=== PATIENT | female | born 1945 | race Caucasian/White ===

== ENCOUNTER → 2016-09-07 | Outpatient (CLI) | payer BC, MEDICARE ==
--- NOTE | 2016-09-08 08:07 | CONS ---
DATE OF CONSULT: 09/07/2016 HISTORY OF PRESENT ILLNESS/SLEEP WAKE EVALUATION: 70 year old lady has [facility] for possible obstructive sleep apnea/hypopnea syndrome. SLEEP SCHEDULE: The patient's usual sleep schedule from around 1 a.m. until 10 a.m. FALLING ASLEEP: She does have problems with falling asleep. Has t.v. set in bedroom. She snores and has episodes of stopped breathing during the sleep documented in the hospital while she was there for surgery. DURING SLEEP: She wakes up with sleep from nocturia. In the morning, she wakes up tired, feels sleepiness during the day. [place] sleep scale is 6. She takes naps one or two times a day after noon. DURING THE DAY/WAKE STATE: No history of sleep paralysis, hypnogogical hallucinations or cataplexy. Medications: 1. Metformin. 2. Metoprolol. 3. ( ). 4. Hydrochlorothiazide. 5. Oxybutynin. 6. Atorvastatin. 7. Aspirin. PAST MEDICAL HISTORY: hypertension, diabetes mellitus, urinary incontinence, hyperlipidemia. PAST SURGICAL HISTORY: Partial hysterectomy, left knee replacement. Surgery for a broken left arm. FAMILY HISTORY: Hypertension, hyperlipidemia, snoring, diabetes. SOCIAL HISTORY: Positive for smoking for 30 years up to 1 1/2 pack a day, quit about 6 years ago. Alcohol consumption rarely. REVIEW OF SYSTEMS: No fevers. No double vision. No recent chest pain. No shortness of breath. No abdominal pain. No bleeding episodes. No blood in urine. No seizure episodes. PHYSICAL EXAM: GENERAL: A pleasant lady patient without any distress. VITAL SIGNS: BP 120/63, HR 60, RR 16, Height 5 feet 4 and a half inches, weight 180.2, body mass index 30.4. Temperature 97.9. Oxygen saturation on room air 95%. HEENT: PERRLA, EOMI. Evaluation of oropharynx shows extremely low position of soft palate. Mallampati 4. Tongue protrudes midline. NECK: Supple. No JVD. Thyroid is not palpable. LUNGS: Clear to auscultation and percussion. Good air exchange. No wheezing or rhonchi. HEART: S1, S2 regular. No murmurs, gallops or rubs. ABDOMEN: Obese. Soft, nontender. Bowel sounds are preset. No organomegaly appreciated. EXTREMITIES: No clubbing or cyanosis. TOWER SUPERVISOR: Awake, alert and oriented times three. Cranial nerves 2 to 7 intact. There is no fasciculation or atrophy noted. No focal deficits observed. IMPRESSION: 1. Snoring. Witnessed episodes of stopped breathing during the sleep, extremely low position of soft palate, obstructive sleep apnea/hypopnea syndrome. 2. Mild obesity. 3. Hypertension. 4. Hyperlipidemia. 5. history of urinary incontinence. 6. Status post partial hysterectomy. 7. Status post left knee replacement. 8. Status post treatment of fracture of left arm in the past. 9. Status post about 45 pack year of smoking. PLAN: 1. Polysomnography for evaluation of patients breathing during sleep. 2. CPAP/BIPAP titration if sleep study confirms obstructive sleep apnea/ hypopnea syndrome. 3. Preferable position during sleep in the side. 4. No driving if patient feels any sleepiness. Patient is aware of civil and criminal liability for unsafe driving. 5. I will see the patient for follow-up visit to explain the results of the testing and following plan. Thank you for referring this patient for consultation. Sincerely, Siva Carrizales MD, PhD, FAASM Diplomat of [place] [employer]. Sleep Medicine Board by [place] [employer] [place] [employer] [facility] [place] [facility]
== END ==
LOC: SLEEP 15:24
PROVIDERS: ATTEND Internal Medicine
DX: R06.83 Snoring (principal); E66.9 Obesity, unspecified; I10 Essential (primary) hypertension; E78.5 Hyperlipidemia, unspecified; Z90.710 Acquired absence of both cervix and uterus; Z96.652 Presence of left artificial knee joint; Z87.891 Personal history of nicotine dependence; Z79.899 Other long term (current) drug therapy; Z79.82 Long term (current) use of aspirin
CPT/HCPCS: 99211

== ENCOUNTER → 2019-02-06 | Day surgery (SDC) | payer BC, MEDICARE ==
[2019-02-04 15:26] VITALS: BMI 31.4
[~2019-02-06] MED LIST: LACTATED RINGERS 1,000 ML IV SCH; LIDOCAINE 1% 20 ML VIAL (10MG/ML) FOR IV START INTRADERMA PRN; PROPOFOL 10 MG/ML 20 ML VIAL IV ONE
[2019-02-06 12:51] VITALS: RESP 16; TEMP 97.7
[2019-02-06 12:59] LABS: Glucose,Whole Blood 130 mg/dL (75-99)
--- NOTE | 2019-02-06 13:38 | P.OP ---
Date of Procedure: 02/06/19 Preoperative Diagnosis: iron deficiency anemia Postoperative Diagnosis: gastritis Duodenitis Cecal polyp Descending colon polyp Diverticulosis Procedure(s) Performed: EGD with biopsy Colonoscopy with polypectomy Surgeon: Micah Rodríguez Pathology: other (biopsies of duodenum, antrum, esophagus, cecal polyp, descending colon polyp) Condition: stable Disposition: same day Indications for Procedure: 73-year-old female with history of iron deficiency anemia. She presents today for upper and lower endoscopy for further workup. She was explained the risks, benefits and alternatives to the procedure and did provide consent prior to attending the endoscopy suite. Operative Findings: gastritis Duodenitis Cecal polyp Descending colon polyp Diverticulosis of sigmoid colon Description of Procedure: the patient was brought into the endoscopy suite. She was then placed in left lateral decubitus position and adequate sedation was achieved using conscious sedation. A bite block was placed in an endoscope was placed in the oropharynx and advanced under endoscopic visualization. The endoscope was advanced through the esophagus into the stomach, through the gastric antrum and into the pylorus. The third portion of the duodenum was visualized. The endoscope was then sl owly withdrawn. The first portion of the duodenum was noted to have inflammatory changes. Biopsies were taken. The antrum was noted to have informed her changes. Biopsies were taken. The gastric body distended normally and the gastric folds appeared normal and flattened with insufflation. A retroflexed view of the fundus and GE junction revealed no significant hiatal hernia. The esophagus appeared endoscopically normal. Excess air was removed and the scope was withdrawn. Digital rectal exam was performed and mild internal hemorrhoids were palpated. An endoscope was then placed in the rectum and advanced to the cecum as identified by landmarks including the appendiceal orifice and the ileocecal valve. The prep was fair. The colonoscope was then slowly withdrawn, examining for any mucosal abnormalities. There was still some solid stool throughout the colon, however the mucosal layer of the entire colon was appropriately visualized. The cecum, ascending, transverse, descending and sigmoid colon were visualized adequately. There were a few polyps noted throughout the colon. A flat sessile-looking polyp was noted in the cecum. Polypectomy was performed with forcep polypectomy. An additional polyp was noted in the descending colon. This was also removed with forcep polypectomy. Hemostasis was noted to be maintained. There were small scattered diverticulosis throughout the sigmoid colon. Retroflexion was performed in the rectum and mild internal hemorrhoids were visible. Excess air was removed, the colonoscope withdrawn and procedure terminated. The patient was then transferred to the recovery unit in stable condition. Repeat colonoscopy should be performed in 3 years.
[2019-02-06 14:06] VITALS: BP 155/70; PULSE 70
== END | disposition home or self-care (01) ==
LOC: ORWHC2ENDO 12:25
PROVIDERS: ATTEND Surgery
DX: D12.0 Benign neoplasm of cecum (principal); D12.4 Benign neoplasm of descending colon; K57.30 Diverticulosis of large intestine without perforation or abscess without bleeding; K29.80 Duodenitis without bleeding; D50.9 Iron deficiency anemia, unspecified; K29.50 Unspecified chronic gastritis without bleeding; B96.81 Helicobacter pylori [H. pylori] as the cause of diseases classified elsewhere; K64.8 Other hemorrhoids; Z90.710 Acquired absence of both cervix and uterus; E78.5 Hyperlipidemia, unspecified; K21.9 Gastro-esophageal reflux disease without esophagitis; M19.90 Unspecified osteoarthritis, unspecified site; I25.10 Atherosclerotic heart disease of native coronary artery without angina pectoris; G25.0 Essential tremor; Z97.2 Presence of dental prosthetic device (complete) (partial); I10 Essential (primary) hypertension; E11.9 Type 2 diabetes mellitus without complications; F32.9 Major depressive disorder, single episode, unspecified; E78.00 Pure hypercholesterolemia, unspecified; G47.33 Obstructive sleep apnea (adult) (pediatric); Z99.89 Dependence on other enabling machines and devices; Z95.5 Presence of coronary angioplasty implant and graft; Z82.49 Family history of ischemic heart disease and other diseases of the circulatory system; Z79.84 Long term (current) use of oral hypoglycemic drugs; Z79.82 Long term (current) use of aspirin; Z79.899 Other long term (current) drug therapy
CPT/HCPCS: 88305; 88342; 45380; 43239; J2704

== ENCOUNTER → 2022-05-16 | Outpatient (CLI) | payer MEDICARE | END | disposition home or self-care (01) | LOC: LABWHC1 13:53 | PROVIDERS: ATTEND Internal Medicine Cardiovascular Disease | DX: R60.0 Localized edema (principal) ==

== ENCOUNTER → 2022-05-18 | Outpatient (CLI) | payer MEDICARE | END | disposition home or self-care (01) | LOC: LABWHC1 11:43 | PROVIDERS: ATTEND Internal Medicine Cardiovascular Disease | DX: R60.0 Localized edema (principal) | CPT/HCPCS: 36415; 83880 ==

== ENCOUNTER → 2022-06-01 | Outpatient (CLI) | payer MEDICARE ==
--- NOTE | 2022-06-02 09:30 | NM ---
EXAMINATION TYPE: NM DatScan Brain SPECT DATE OF EXAM: 06/01/2022 COMPARISON: NONE HISTORY: Tremors TECHNIQUE: 10 drops of Lugol's solution was administered 1 hour prior to injection as a thyroid bloc megan agent. After the administration of 4.48 mCi I-123 Ioflupane DaTscan. Images obtained 3 hours p ost injection. SPECT images of the brain were acquired with axial and coronal reconstructions. FINDINGS: The axial SPECT images demonstrate increased background activity and normal activity within the bilateral striata. The Z scores range from +0.88 to +2.25 IMPRESSION: 1. Normal exam..
== END | disposition home or self-care (01) ==
LOC: RADNMMAIN 11:00
PROVIDERS: ATTEND Psychiatry & Neurology Neurology
DX: G20 Parkinson's disease (principal); G25.0 Essential tremor
CPT/HCPCS: 78803; A9584

== ENCOUNTER → 2022-12-07 | Outpatient (CLI) | payer MEDICARE ==
[2022-12-07 16:44] LABS: HCT 42.8 % (37.2-46.3); HGB 12.9 d/dL (12.0-15.0); MCH 27.7 pg (27.0-32.0); MCHC 30.1 d/dL (32.0-37.0); Mean Platelet Volume 11.3 FL (9.5-12.2); NRBC Per 100 WBC 0 X 10*3/uL (0.00-0.01); Platelet Count 321 X 10*3/uL (140-440); RBC 4.65 X 10*6/uL (4.10-5.20); WBC 12.12 X 10*3/uL (4.50-10.00)
[2022-12-07 20:15] LABS: Blood Urea Nitrogen 16.6 mg/dL (9.0-27.0); Carbon Dioxide 26.4 mmol/L (21.6-31.8); Chloride 98 mmol/L (96-109); Potassium 4.7 mmol/L (3.5-5.5); Sodium 138 mmol/L (135-145)
== END | disposition home or self-care (01) ==
LOC: LABPAT 11:13
PROVIDERS: ATTEND Internal Medicine Interventional Cardiology
DX: Z01.812 Encounter for preprocedural laboratory examination (principal); I73.9 Peripheral vascular disease, unspecified
CPT/HCPCS: 36415; 80051; 82565; 84520; 85027

== ENCOUNTER 2022-12-15 06:49 | Day surgery (SDC) | payer MEDICARE ==
[~2022-12-15 06:49] MED LIST changes: +ALPRAZolam 0.25 MG TAB PO PRN; +ALPRAZolam 0.5 MG TAB PO PRN; +ASPIRIN 325 MG TAB PO PRN; +HEPARIN SODIUM,PORCINE (1 ML) 2,500 UNIT in SODIUM CHLORIDE 0.9% 250 ML IRRIGATION PRN; +HEPARIN SODIUM,PORCINE 10,000 UNIT in SODIUM CHLORIDE 0.9% 1,000 ML IRRIGATION PRN; -LACTATED RINGERS 1,000 ML IV SCH; -LIDOCAINE 1% 20 ML VIAL (10MG/ML) FOR IV START INTRADERMA PRN; -PROPOFOL 10 MG/ML 20 ML VIAL IV ONE; +SODIUM CHLORIDE 0.9% 1,000 ML in EMPTY BAG 1 BAG IV ONE; +ZOLPIDEM 5 MG TAB PO PRN
[2022-12-15] MEDS ORDERED: SODIUM CHLORIDE 0.9% 1,000 ML IV ONE (07:09)
[2022-12-15 07:23] LABS: Glucose,Whole Blood 91 mg/dL (70-110)
[2022-12-15 07:40] VITALS: RESP 16; TEMP 97.7
[2022-12-15] MEDS ORDERED: LIDOCAINE 1% INJ 10MG/ML (20 ML MDV) ONE (08:39)
[2022-12-15] MEDS ORDERED: VERAPAMIL 2.5 MG/ML 2 ML AMP ONE (08:43)
[2022-12-15] MEDS ORDERED: MIDAZOLAM 2 MG/2 ML VIAL IVP ONE (08:54)
[2022-12-15] MEDS ORDERED: fentaNYL (PF) 50 MCG/ML 2 ML AMP ONE (09:03)
[2022-12-15] MEDS ORDERED: fentaNYL (PF) 50 MCG/ML 2 ML AMP IVP ONE (09:05)
[2022-12-15] MEDS ORDERED: HEPARIN SODIUM 1,000 UN/ML (10ML VL) ONE (09:05)
[2022-12-15] MEDS ORDERED: HEPARIN SODIUM 1,000 UN/ML (10ML VL) IVP ONE (09:08)
[2022-12-15] MEDS ORDERED: NALOXONE 0.4 MG/ML 1 ML VIAL IVP PRN (09:29)
[2022-12-15] MEDS ORDERED: SODIUM CHLORIDE 0.9% 1,000 ML in EMPTY BAG 1 BAG IV SCH (09:30)
--- NOTE | 2022-12-15 09:36 | P.PCN ---
Date of Procedure: 12/15/22 Operative Findings: AN ABDOMINAL AORTOGRAM AND BILATERAL LOWER EXTREMITIES RUNOFF PERFORMING PHYSICIAN: Av Sotomayor MD PROCEDURE PERFORMED: 1. An abdominal aortogram 2. Bilateral lower extremities runoff 3. Ultrasound-guided access of the right common femoral artery INDICATION: Bilateral lower extremity is intermittent claudication in this 77-year-old female patient who underwent an arterial duplex study and that came in to be abnormal. The patient was seen and evaluated by Dr. Kc who recommended proceeding with aortogram and runoff. Also the patient does have multiple risk factors including diabetes COMPLICATION: None LEVEL OF SEDATION: Moderate was sedation length of 14 APPROACH: Right common femoral artery PROCEDURE DESCRIPTION: After obtaining informed consent and explaining the procedure benefits, risks, and complications, the patient was brought to the cardiac lab animal technologist. The right radial artery was prepped and draped in sterile fashion. The right radial artery was cannulated using micropuncture technique, under ultrasound guidance. A micropuncture wire was advanced, and the micropuncture sheath was advanced over the wire, then the micropuncture sheath was exchanged over an 0.35 wire into a 5-German sheath dilator assembly then the wire and dilator were removed and sheath was flushed. We did an abdominal aortogram and bilateral lower extremities runoff using 5- German pigtail catheter using a power injection. The catheter was initially placed at the level of the renal arteries, and it was advanced into above the bifurcation of the aorta into right and left common iliac arteries. The procedure was completed and there was no complications. SELECTIVE PERIPHERAL ANGIOGRAM: The abdominal aorta: Is calcified with mild disease only The common iliac arteries: The right common iliac artery appeared to have mild disease only. The left common iliac artery appeared to have an ulcerated a plaque The external iliac arteries: The right external and left external iliac arteries appeared to be angiographically normal The internal iliac arteries: Both internal iliacs are patent The common femoral arteries: The right and left common femoral arteries appears to have an intermediate disease only Superficial femoral arteries: The right SFA has severe disease in the proximal and midportion. The left SFA is occluded in the midportion Popliteal arteries: The right and left popliteal appears to have mild disease only Below the knees: There are 3 vessels run off below the knee bilaterally CONCLUSION: Mild aortoiliac disease Severe disease involving the right SFA and occluded left SFA POSTPROCEDURE MANAGEMENT: [employer]
--- NOTE | 2022-12-15 09:36 | IR ---
EXAMINATION TYPE: IR angio abdominal w runoff DATE OF EXAM: 12/15/2022 COMPARISON: None HISTORY: LEG PAIN, 3.3MIN FLUORO TIME Fluoroscopy was provided to the referring clinician.
[2022-12-15 11:32] VITALS: PULSE 56
[2022-12-15 13:59] VITALS: BP 116/56
== END 2022-12-15 13:31 | disposition home or self-care (01) ==
LOC: CATHCVL 06:49
PROVIDERS: ATTEND Internal Medicine Interventional Cardiology
DX: I73.9 Peripheral vascular disease, unspecified (principal); I10 Essential (primary) hypertension; E78.5 Hyperlipidemia, unspecified; E11.9 Type 2 diabetes mellitus without complications; F17.210 Nicotine dependence, cigarettes, uncomplicated; Z79.82 Long term (current) use of aspirin; Z79.899 Other long term (current) drug therapy
CPT/HCPCS: 36200; 75625; 75716; 76937; C1769 ×2; J2250; J3010; J1644

== ENCOUNTER → 2023-01-04 | Outpatient (CLI) | payer MEDICARE ==
[2023-01-04 16:12] LABS: HCT 40.9 % (37.2-46.3); HGB 12.9 g/dL (12.0-15.0); MCH 27.7 pg (27.0-32.0); MCHC 31.5 g/dL (32.0-37.0); Mean Platelet Volume 11.7 FL (9.5-12.2); NRBC Per 100 WBC 0 X 10*3/uL (0.00-0.01); Platelet Count 271 X 10*3/uL (140-440); RBC 4.65 X 10*6/uL (4.10-5.20); RDW 14.6 % (11.5-14.5)
[2023-01-04 16:28] LABS: Carbon Dioxide 25.9 mmol/L (21.6-31.8); Chloride 100 mmol/L (96-109); Potassium 5.1 mmol/L (3.5-5.5); Sodium 138 mmol/L (135-145)
== END | disposition home or self-care (01) ==
LOC: LABPAT 11:46
PROVIDERS: ATTEND Internal Medicine Interventional Cardiology
DX: Z01.812 Encounter for preprocedural laboratory examination (principal); I73.9 Peripheral vascular disease, unspecified
CPT/HCPCS: 80051; 82565; 84520; 85027

== ENCOUNTER 2023-01-17 06:08 | Day surgery (SDC) | payer MEDICARE ==
[2023-01-09 16:09] VITALS: BMI 28.3
[2023-01-17 06:50] LABS: Glucose,Whole Blood 102 mg/dL (70-110)
[2023-01-17] MEDS ORDERED: LIDOCAINE 1% INJ 10MG/ML (20 ML MDV) ONE (08:02)
[2023-01-17] MEDS ORDERED: niCARdipine 25 MG/10 ML VIAL ONE (08:03)
[2023-01-17] MEDS ORDERED: HEPARIN SODIUM 1,000 UN/ML (10ML VL) ONE (08:27)
[2023-01-17] MEDS ORDERED: MIDAZOLAM 2 MG/2 ML VIAL IVP ONE (08:45)
[2023-01-17] MEDS ORDERED: LIDOCAINE 1% INJ 10MG/ML (20 ML MDV) SQ ONE (08:47)
[2023-01-17] MEDS ORDERED: fentaNYL (PF) 50 MCG/ML 2 ML AMP ONE (08:47)
[2023-01-17] MEDS: HEPARIN SODIUM 1,000 UN/ML (10ML VL) IV ONE ×2 (08:53→09:21)
[2023-01-17] MEDS ORDERED: fentaNYL (PF) 50 MCG/1 ML VIAL IVP ONE (09:01)
[2023-01-17] MEDS ORDERED: CLOPIDOGREL 75 MG TAB ONE (09:11)
[2023-01-17] MEDS ORDERED: CLOPIDOGREL 75 MG TAB PO ONE (09:14)
[2023-01-17] MEDS ORDERED: NITROGLYCERIN 1000MCG/10ML SYRINGE INTRACORON ONE (09:34)
[2023-01-17] MEDS ORDERED: niCARdipine Syringe (1,000 mcg/10 mL) INTRACORON ONE (09:35)
[2023-01-17] MEDS ORDERED: IOPAMIDOL-370 100ML BTL INJ ONE (10:06)
[2023-01-17] MEDS ORDERED: NALOXONE 0.4 MG/ML 1 ML VIAL IVP PRN (10:12)
[2023-01-17] MEDS ORDERED: SODIUM CHLORIDE 0.9% 1,000 ML in EMPTY BAG 1 BAG IV SCH (10:15)
--- NOTE | 2023-01-17 10:17 | P.PCN ---
Date of Procedure: 01/17/23 Operative Findings: PERCUTANEOUS PERIPHERAL INTERVENTION Performing physician Av Sotomayor M.D. Procedure performed 1. Successful balloon angioplasty of the left SFA 2. Adjunctive use of orbital atherectomy and intravascular imaging 3. Left lower extremity angiogram and right common femoral artery angiogram and ultrasound guided access of the right common femoral artery Indication Left lower extremities intermittent claudication in this 77-year-old female patient who underwent an angiogram and revealed occluded left SFA and critical right SFA Approach Right common femoral artery Complications None Level of sedation Moderate with a sedation time of 68 minutes Procedure description After obtaining an informed consent the patient was brought to the cardiac laborer driver. The right common femoral artery was cannulated using micropuncture technique under ultrasound guidance the micropuncture wire passed easily then place a 6-Indonesian 11 cm at the right common femoral artery and subsequently I did put the sheath out and I advanced the 7 cm 6-Indonesian sheath over 035 stiff Glidewire the right common iliac artery. Subsequently I did advanced a 5-Indonesian rim catheter and I did advanced my wire to the proximal left SFA and then I did advanced a sheath over the wire and the sheath dilator to the left common femoral artery. Left lower extremity angiogram was performed. Subsequently I did cross the chronic total occlusion of the left SFA using 018 wire with a backup support of on 018 catheter then I injected through the catheter to prove that I was in the true lumen. After that I did intravascular ultrasound which showed heavily calcified lesion in orbital atherectomy was performed and then balloon angioplasty was performed using chocolate balloon with a good angiographic results also we into doing drug-coated balloon. I used 4.0 x 200 mm balloon. Final angiogram showed good angiographic results. There was a concern about a lesion in the left common iliac artery so I did intravascular ultrasound again and that showed the lesion was not flow-limiting. After that I did exchange my own treatment short sheath using 035 stiff Glidewire before I did selective right common femoral artery angiogram. The procedure was co mpleted was no complication Postprocedure management 1. Dual antiplatelet therapy 2. Aggressive cholesterol control 3. Risk factors modification 4. Follow-up with the patient
--- NOTE | 2023-01-17 10:19 | IR ---
EXAMINATION TYPE: IR head bellhop captain femoral popliteal DATE OF EXAM: 01/17/2023 COMPARISON: NONE HISTORY: Fluoroscopy time. Fluoroscopy was provided to the referring clinician.
[2023-01-17] MEDS ORDERED: ATORVASTATIN 40 MG TAB PO SCH (21:00)
[2023-01-17] MEDS: METOPROLOL TARTRATE 50 MG TAB PO SCH (21:40)
[2023-01-17] MEDS: busPIRone HCl 10 MG TAB PO SCH (21:40)
[2023-01-18 02:30] VITALS: TEMP 98.1
[2023-01-18 05:11] LABS: Basophils # (A) 0.1 k/uL (0-0.2); Basophils % (A) 1 %; Eosinophils # (A) 0.9 k/uL (0-0.7); Eosinophils % (A) 8 %; HCT 36.5 % (34.0-46.0); HGB 11.9 gm/dL (11.4-16.0); Lymphocytes % (A) 16 %; MCH 28.8 pg (25.0-35.0); MCHC 32.7 g/dL (31.0-37.0); MCV 87.9 fL (80.0-100.0); Mean Platelet Volume 8.8; Monocytes # (A) 0.9 k/uL (0-1.0); Monocytes % (A) 7 %; Neutrophils # (A) 8.1 k/uL (1.3-7.7); Neutrophils % (A) 66 %; Platelet Count 200 k/uL (150-450); RBC 4.15 m/uL (3.80-5.40); RDW 14.5 % (11.5-15.5); WBC 12.2 k/uL (3.8-10.6)
[2023-01-18 05:25] LABS: African American GFR (CKD) 55 (>60 ml/min/1.73 sqM); Non-African American GFR(CKD) 47 (>60 ml/min/1.73 sqM)
[2023-01-18 06:09] LABS: African American GFR (CKD) 54 (>60 ml/min/1.73 sqM); Anion Gap 11 mmol/L; Blood Urea Nitrogen 28 mg/dL (7-17); Calcium 8.4 mg/dL (8.4-10.2); Carbon Dioxide 24 mmol/L (22-30); Chloride 100 mmol/L (98-107); Glucose 92 mg/dL (74-99); Non-African American GFR(CKD) 47 (>60 ml/min/1.73 sqM); Potassium 4.3 mmol/L (3.5-5.1); Sodium 135 mmol/L (137-145)
[2023-01-18 08:04] VITALS: BP 96/61; PULSE 50; RESP 16
[2023-01-18] MEDS: METOPROLOL TARTRATE 50 MG TAB PO SCH (08:56)
[2023-01-18] MEDS: busPIRone HCl 10 MG TAB PO SCH (08:56)
[2023-01-18] MEDS ORDERED: ASPIRIN 81 MG PO SCH (09:00)
[2023-01-18] MEDS ORDERED: lisinopriL 20 MG TAB PO SCH (09:00)
[2023-01-18] MEDS ORDERED: CLOPIDOGREL 75 MG TAB PO SCH (09:00)
[2023-01-18] MEDS ORDERED: CITALOPRAM HYDROBROMIDE 20 MG TAB PO SCH (09:00)
[2023-01-18] MEDS ORDERED: LINAGLIPTIN 5 MG TABLET PO SCH (09:00)
== END 2023-01-18 09:20 | disposition home or self-care (01) ==
LOC: CATHCVL 06:08 → 6NMEDSUR 09:53 → CATHCVL 01-18 09:20
PROVIDERS: ATTEND Internal Medicine Interventional Cardiology
DX: I73.9 Peripheral vascular disease, unspecified (principal); I10 Essential (primary) hypertension; E11.9 Type 2 diabetes mellitus without complications; E78.5 Hyperlipidemia, unspecified; I25.10 Atherosclerotic heart disease of native coronary artery without angina pectoris; F10.90 Alcohol use, unspecified, uncomplicated; Z87.891 Personal history of nicotine dependence; Z79.84 Long term (current) use of oral hypoglycemic drugs; Z79.82 Long term (current) use of aspirin; Z79.899 Other long term (current) drug therapy
CPT/HCPCS: 37225; 76937; 37252; 80048; 82565; 85025; C1894 ×2; C1769 ×5; C1714; C1753; C1725; J2250; J2001; J1644; Q9967; J3010; J2305

== ENCOUNTER → 2023-02-26 | Outpatient (CLI) | payer MEDICARE ==
[2023-02-26 15:21] LABS: Blood Urea Nitrogen 23.5 mg/dL (9.0-27.0); Carbon Dioxide 25.2 mmol/L (21.6-31.8); Chloride 98 mmol/L (96-109); Potassium 5.3 mmol/L (3.5-5.5); Sodium 137 mmol/L (135-145)
[2023-02-26 15:27] LABS: HGB 12.9 g/dL (12.0-15.0); MCH 27.4 pg (27.0-32.0); MCHC 31.5 g/dL (32.0-37.0); MCV 87.2 FL (80.0-97.0); Mean Platelet Volume 11.4 FL (9.5-12.2); NRBC Per 100 WBC 0 X 10*3/uL (0.00-0.01); Platelet Count 260 X 10*3/uL (140-440); RDW 15.7 % (11.5-14.5)
== END | disposition home or self-care (01) ==
LOC: LABWHC1 10:58
PROVIDERS: ATTEND Internal Medicine Interventional Cardiology
DX: Z01.812 Encounter for preprocedural laboratory examination (principal); I73.9 Peripheral vascular disease, unspecified
CPT/HCPCS: 36415; 80051; 82565; 84520; 85027

== ENCOUNTER → 2023-04-13 | Outpatient (CLI) | payer MEDICARE ==
--- NOTE | 2023-04-13 13:57 | CTL ---
EXAMINATION TYPE: CT Low Dose Lung DATE OF EXAM ORDERED: 04/13/2023 HISTORY: Lung cancer screening CT DLP: 153.[address] CTDI: 4.2 mGy Automated exposure control for dose reduction was used. COMPARISON: None TECHNIQUE: Low dose computed tomography scan was performed through the chest at 1 mm thick sections a nd reconstructed images in multiple planes at 1 mm and [address] DIAGNOSTIC QUALITY: Satisfactory FINDINGS: There are multiple bilateral pulmonary nodules the largest of which approximate 7 mm. There is no airspace consolidation or abnormal interstitial density. There is no pleural effusion, pleural thickening or pneumothorax. Great vessels chest are normal and is no mediastinal, hilar or axillary adenopathy. Limited scanning through the upper abdomen reveals a 7 mm nonobstructing left renal calcification. No focal osseous lesions are seen. IMPRESSION: 1. Lung metastases category 3 likely benign findings. Multiple pulmonary nodules as described above. 3-6 month follow-up CT of the thorax is recommended. 2. No acute cardiopulmonary disease. 3. 7 mm nonobstructing left renal calcification.
== END | disposition home or self-care (01) ==
LOC: RADCTMAIN 12:56
PROVIDERS: ATTEND Internal Medicine
DX: Z12.2 Encounter for screening for malignant neoplasm of respiratory organs (principal); C78.00 Secondary malignant neoplasm of unspecified lung; R91.8 Other nonspecific abnormal finding of lung field; Z87.891 Personal history of nicotine dependence
CPT/HCPCS: 71271

== ENCOUNTER 2024-05-13 09:25 | Inpatient (IN) | payer MEDICARE ==
--- NOTE | 2024-05-13 09:58 | ED ---
General Adult HPI - General Chief complaint: Shortness of Breath Stated complaint: Flu like symptoms Time Seen by Provider: 05/13/24 09:35 Source: patient, EMS, RN notes reviewed, old records reviewed Mode of arrival: EMS - History of Present Illness Initial comments: This is a 78-year-old female who presents to the emergency department complaining of difficulty breathing. Patient states she has been getting worse over the last 3 to 4 days and today she was so tired she could not even manipulate the stairs by herself. Family member states she was too weak to get up the stairs so he called the ambulance. Patient denies any fever or chills. Patient states she has had a cough and has found it harder to breathe more recently. Patient denies chest pain or palpitation. Patient has abdominal pain patient has nausea vomiting diarrhea. Patient was a smoker up until about 5 or 6 years ago. Patient is a diabetic. - Related Data Home Medications Medication Instructions Recorded Confirmed Aspirin 81 mg PO DAILY 11/12/14 05/13/24 Atorvastatin [Lipitor] 40 mg PO HS 11/12/14 05/13/24 Metoprolol Tartrate [Lopressor] 50 mg PO BID 12/13/22 05/13/24 Citalopram Hydrobromide [CeleXA] 40 mg PO DAILY 01/17/23 05/13/24 Empagliflozin [Jardiance] 10 mg PO DAILY 05/13/24 05/13/24 Ergocalciferol (Vitamin D2) 1,250 mcg PO QMONTHLY 05/13/24 05/13/24 [Drisdol (50,000 Iu)] Furosemide [Lasix] 40 mg PO DAILY 05/13/24 05/13/24 Gabapentin [Neurontin] 300 mg PO BID 05/13/24 05/13/24 Losartan [Cozaar] 50 mg PO DAILY 05/13/24 05/13/24 Multivitamins, Thera [Multivitamin 1 tab PO DAILY 05/13/24 05/13/24 (formulary)] Potassium Chloride ER [K-Dur 20] 20 meq PO DAILY 05/13/24 05/13/24 Previous Rx's Medication Instructions Recorded Clopidogrel [Plavix] 75 mg PO DAILY #90 tablet 01/18/23 Allergies Allergy/AdvReac Type Severity Reaction Status Date / Time No Known Allergies Allergy Verified 05/13/24 09:35 Review of Systems ROS Statement: Those systems with pertinent positive or pertinent negative responses have been documented in the HPI. ROS Other: All systems not noted in ROS Statement are negative. Past Medical History Past Medical History: Coronary Artery Disease (CAD), Diabetes Mellitus, GERD/Reflux, Hyperlipidemia, Hypertension, Osteoarthritis (OA), Sleep Apnea/CPAP/BIPAP Additional Past Medical History / Comment(s): ESSENTIAL TREMORS, C-PAP MACHINE, ARTHRITIS BACK AND KNEES. History of Any Multi-Drug Resistant Organisms: None Reported Past Surgical History: Heart Catheterization With Stent, Hysterectomy, Joint Replacement, Orthopedic Surgery Additional Past Surgical History / Comment(s): HEART STENT X 2, LT UPPER ARM SX, TOTAL LEFT KNEE Past Anesthesia/Blood Transfusion Reactions: No Reported Reaction Date of Last Stent Placement:: 2007? Past Psychological History: Depression Smoking Status: Former smoker Past Alcohol Use History: None Reported Past Drug Use History: None Reported - Past Family History Mother Family Medical History: Coronary Artery Disease (CAD), Dialysis, Hypertension Father Family Medical History: Cancer, Coronary Artery Disease (CAD) Additional Family Medical History / Comment(s): SKIN CANCER General Exam - General Exam Comments Initial Comments: GENERAL: Patient is well-developed and well-nourished. Patient is nontoxic and well- hydrated and is in mild distress. ENT: Neck is soft and supple. No significant lymphadenopathy is noted. Oropharynx is clear. Moist mucous membranes. Neck has full range of motion without eliciting any pain. EYES: The sclera were anicteric and conjunctiva were pink and moist. Extraocular movements were intact and pupils were equal round and reactive to light. Eyelids were unremarkable. PULMONARY: Patient has rhonchi bilaterally with some expiratory wheezing CARDIOVASCULAR: There is a regular rate and rhythm without any murmurs gallops or rubs. ABDOMEN: Soft and nontender with normal bowel sounds. SKIN: Skin is clear with no lesions or rashes and otherwise unremarkable. NEUROLOGIC: Patient is alert and oriented x3. Cranial nerves II through XII are grossly intact. Motor and sensory are also intact. Normal speech, volume and content. Symmetrical smile. MUSCULOSKELETAL: Normal extremities with adequate strength and full range of motion. LYMPHATICS: No significant lymphadenopathy is noted PSYCHIATRIC: Normal psychiatric evaluation. Course Vital Signs 05/13/24 05/13/24 05/13/24 09:30 10:56 11:00 Temperature 99.1 F Pulse Rate 74 66 66 Respiratory 22 22 20 Rate Blood Pressure 186/61 135/58 O2 Sat by Pulse 96 98 Oximetry 05/13/24 05/13/24 05/13/24 11:10 12:00 12:42 Temperature 98.7 F Pulse Rate 70 81 Respiratory 21 20 Rate Blood Pressure 142/48 O2 Sat by Pulse 96 Oximetry Medical Decision Making - Medical Decision Making EKG is interpreted by myself but EKG shows a sinus rhythm at 74 bpm AR was under 91 QRS is 90 QT interval 377 QTc is 405. Patient's EKG shows no ST segment elevation Was pt. sent in by a medical professional or institution ([facility], PHYSICAL BIOCHEMIST, urgent care, hospital, or half-way...) When possible be specific @ -No Did you speak to anyone other than the patient for history (EMS, parent, family, police, friend...)? What history was obtained from this source @ -No Did you review nursing and triage notes (agree or disagree)? Why? @ -I reviewed and agree with nursing and triage notes Were old charts reviewed (outside hosp., previous admission, EMS record, old EKG, old radiological studies, urgent care reports/EKG's, half-way records)? Report findings @ -No old charts were reviewed Differential Diagnosis? @ -Differential Dyspnea: Coronary syndrome, arrhythmia, tamponade, asthma, COPD, pulmonary embolism, pneumonia, pneumothorax, pulmonary effusion, anaphylaxis, diabetic ketoacidosis, flailed chest, pulmonary contusion, diaphragmatic rupture, anemia, neuromuscular, this is not meant to be an all-inclusive list. EKG interpreted by me (3pts min.). @ -As above X-rays interpreted by me (1pt min.). @ -Chest x-ray shows no acute abnormality CT interpreted by me (1pt min.). @ -None done U/S interpreted by me (1pt. min.). @ -None done What testing was considered but not performed or refused? (CT, X-rays, U/S, labs)? Why? @ -None What meds were considered but not given or refused? Why? @ -None Did you discuss the management of the patient with other professionals (professionals i.e. [facility], PHYSICAL BIOCHEMIST, lab, RT, psych nurse, social work msw, it senior analyst, teacher, state patrol officer, shelter case manager)? Give summary @ -I spoke with [facility] hospitalist agreed to admit the patient admit the patient would have any worse Was smoking cessation discussed for >3mins.? @ -No Was critical care preformed (if so, how long)? @ -No Were there social determinants of health that impacted care today? How? (Homelessness, low income, unemployed, alcoholism, drug addiction, transportation, low edu. Level, literacy, decrease access to med. care, senior care, rehab)? @ -No Was there de-escalation of care discussed even if they declined (Discuss DNR or withdrawal of care, Hospice)? DNR status @ -No What co-morbidities impacted this encounter? (DM, HTN, Smoking, COPD, CAD, Cancer, CVA, ARF, Chemo, Hep., AIDS, mental health diagnosis, sleep apnea, morbid obesity)? @ -None Was patient admitted / discharged? Hospital course, mention meds given and route, prescriptions, significant lab abnormalities, going to OR and other pertinent info. @ -Patient came in with wheezing diffusely and I started the patient on a breathing treatment and steroids. She was feeling so better I also started antibiotics because of her history of smoking and probable COPD. Patient's lab work did not show any acute abnormalities and x-ray was within normal range. Undiagnosed new problem with uncertain prognosis? @ -No Drug Therapy requiring intensive monitoring for toxicity (Heparin, Nitro, Insulin, Cardizem)? @ -No Were any procedures done? @ -No Diagnosis/symptom? @ -COPD exacerbation Acute, or Chronic, or Acute on Chronic? @ -Acute Uncomplicated (without systemic symptoms) or Complicated (systemic symptoms)? @ -complicated Side effects of treatment? @ -No Exacerbation, Progression, or Severe Exacerbation? @ -No Poses a threat to life or bodily function? How? (Chest pain, [place], [place], pneumonia, PE, COPD, DKA, ARF, appy, cholecystitis, CVA, Diverticulitis, Homicidal, Suicidal, threat to staff... and all critical care pts) @ -Yes this could lead to hypoxia and endorgan dysfunction - Lab Data Result diagrams: 05/13/24 10:05 05/13/24 10:11 Lab Results 05/13/24 05/13/24 05/13/24 Range/Units 10:05 10:11 10:11 WBC 7.4 (3.8-10.6) k/uL RBC 4.99 (3.80-5.40) m/uL Hgb 13.9 (11.4-16.0) gm/dL Hct 41.8 (34.0-46.0) % MCV 83.8 (80.0-100.0) fL MCH 27.9 (25.0-35.0) pg MCHC 33.3 (31.0-37.0) g/dL RDW 16.1 H (11.5-15.5) % Plt Count 149 L (150-450) k/uL MPV 12.6 Neutrophils % 81 % Lymphocytes % 10 % Monocytes % 5 % Eosinophils % 2 % Basophils % 1 % Neutrophils # 6.0 (1.3-7.7) k/uL Lymphocytes # 0.7 L (1.0-4.8) k/uL Monocytes # 0.4 (0-1.0) k/uL Eosinophils # 0.1 (0-0.7) k/uL Basophils # 0.1 (0-0.2) k/uL Manual Slide Review Perf Hypochromasia Slight Anisocytosis Slight PT 11.0 (10.0-12.5) sec INR 1.0 (<1.2) APTT 22.3 (22.0-30.0) sec Sodium 134 L (137-145) mmol/L Potassium 5.5 H (3.5-5.1) mmol/L Chloride 101 (98-107) mmol/L Carbon Dioxide 25 (22-30) mmol/L Anion Gap 8 mmol/L BUN 24 H (7-17) mg/dL Creatinine 1.29 H (0.52-1.04) mg/dL Est GFR (CKD-EPI)AfAm 46 (>60 ml/min/1.73 sqM) Est GFR (CKD-EPI)NonAf 40 (>60 ml/min/1.73 sqM) Glucose 139 H (74-99) mg/dL Plasma Lactic Acid Hilton (0.7-2.0) mmol/L Calcium 8.4 (8.4-10.2) mg/dL Magnesium 2.0 (1.6-2.3) mg/dL Total Bilirubin 0.7 (0.2-1.3) mg/dL AST 22 (14-36) U/L ALT 16 (4-34) U/L Alkaline Phosphatase 103 (38-126) U/L Troponin I (0.000-0.034) ng/mL NT-Pro-B Natriuret Pep 1000 pg/mL Total Protein 7.1 (6.3-8.2) g/dL Albumin 4.1 (3.5-5.0) g/dL Influenza Type A (PCR) (Not Detectd) Influenza Type B (PCR) (Not Detectd) RSV (PCR) (Not Detectd) SARS-CoV-2 (PCR) (Not Detectd) 05/13/24 05/13/24 05/13/24 Range/Units 10:11 10:11 10:11 WBC (3.8-10.6) k/uL RBC (3.80-5.40) m/uL Hgb (11.4-16.0) gm/dL Hct (34.0-46.0) % MCV (80.0-100.0) fL MCH (25.0-35.0) pg MCHC (31.0-37.0) g/dL RDW (11.5-15.5) % Plt Count (150-450) k/uL MPV Neutrophils % % Lymphocytes % % Monocytes % % Eosinophils % % Basophils % % Neutrophils # (1.3-7.7) k/uL Lymphocytes # (1.0-4.8) k/uL Monocytes # (0-1.0) k/uL Eosinophils # (0-0.7) k/uL Basophils # (0-0.2) k/uL Manual Slide Review Hypochromasia Anisocytosis PT (10.0-12.5) sec INR (<1.2) APTT (22.0-30.0) sec Sodium (137-145) mmol/L Potassium (3.5-5.1) mmol/L Chloride (98-107) mmol/L Carbon Dioxide (22-30) mmol/L Anion Gap mmol/L BUN (7-17) mg/dL Creatinine (0.52-1.04) mg/dL Est GFR (CKD-EPI)AfAm (>60 ml/min/1.73 sqM) Est GFR (CKD-EPI)NonAf (>60 ml/min/1.73 sqM) Glucose (74-99) mg/dL Plasma Lactic Acid Hilton 1.3 (0.7-2.0) mmol/L Calcium (8.4-10.2) mg/dL Magnesium (1.6-2.3) mg/dL Total Bilirubin (0.2-1.3) mg/dL AST (14-36) U/L ALT (4-34) U/L Alkaline Phosphatase (38-126) U/L Troponin I 0.033 (0.000-0.034) ng/mL NT-Pro-B Natriuret Pep pg/mL Total Protein (6.3-8.2) g/dL Albumin (3.5-5.0) g/dL Influenza Type A (PCR) Not Detected (Not Detectd) Influenza Type B (PCR) Not Detected (Not Detectd) RSV (PCR) Not Detected (Not Detectd) SARS-CoV-2 (PCR) Not Detected (Not Detectd) Disposition Clinical Impression: Acute exacerbation of chronic obstructive pulmonary disease Disposition: ADMITTED IP TO THIS HOSP Referrals: Anisa Anthony MD [Primary Care Provider] - 1-2 days Time of Disposition: 12:59
[2024-05-13] MEDS: cefTRIAXone IN SWFI 1,000 MG/10 ML SYRINGE IVP STA (10:12)
[2024-05-13] MEDS: methylPREDNISolone SOD SUCCI 125 MG/2 ML VIAL IV STA (10:14)
[2024-05-13 10:27] LABS: ALT 16 U/L (4-34); AST 22 U/L (14-36); African American GFR (CKD) 46 (>60 ml/min/1.73 sqM); Albumin 4.1 g/dL (3.5-5.0); Alkaline Phosphatase 103 U/L (38-126); Anion Gap 8 mmol/L; Blood Urea Nitrogen 24 mg/dL (7-17); Calcium 8.4 mg/dL (8.4-10.2); Carbon Dioxide 25 mmol/L (22-30); Chloride 101 mmol/L (98-107); Glucose 139 mg/dL (74-99); Non-African American GFR(CKD) 40 (>60 ml/min/1.73 sqM); Potassium 5.5 mmol/L (3.5-5.1); Sodium 134 mmol/L (137-145); Total Bilirubin 0.7 mg/dL (0.2-1.3); Total Protein 7.1 g/dL (6.3-8.2)
[2024-05-13 10:35] LABS: NT-Pro-B-Type Natriuretic Pept 1000 pg/mL
[2024-05-13 10:51] LABS: Influenza A Not Detected (Not Detectd); Influenza B Not Detected (Not Detectd); RSV Not Detected (Not Detectd)
--- NOTE | 2024-05-13 10:53 | XR ---
EXAMINATION TYPE: XR chest 2V DATE OF EXAM: 05/13/2024 10:48 AM COMPARISON: CT low-dose lung 04/13/2023, chest radiograph 05/08/2009 TECHNIQUE: XR chest 2V Frontal and lateral views of the chest. CLINICAL INDICATION:Female, 78 years old with history of difficulty breathing; FINDINGS: Lungs/Pleura: There is no evidence of pleural effusion, focal consolidation, or pneumothorax. Biapic al pleural parenchymal scarring. Pulmonary vascularity: Chronic pulmonary vascular prominence. Heart/mediastinum: Cardiomediastinal silhouette is enlarged and stable. Atherosclerotic calcificatio ns are seen in the aorta. Musculoskeletal: Multiple level degenerative disc disease changes seen throughout the spine. IMPRESSION: Chronic changes without acute pulmonary process. No significant change from prior. [facility], , 05/13/2024 10:51 AM
[2024-05-13] MEDS: IPRATROPIUM 0.5 MG/2.5 ML NEBU INHALATION STA (10:56)
[2024-05-13] MEDS: ALBUTEROL NEBULIZED 2.5 MG/3 ML INHALATION STA (10:56)
[2024-05-13 11:13] LABS: Anisocytosis Slight; Basophils # (A) 0.1 k/uL (0-0.2); Basophils % (A) 1 %; Eosinophils # (A) 0.1 k/uL (0-0.7); Eosinophils % (A) 2 %; HCT 41.8 % (34.0-46.0); HGB 13.9 gm/dL (11.4-16.0); Hypochromasia Slight; Lymphocytes # (A) 0.7 k/uL (1.0-4.8); Lymphocytes % (A) 10 %; MCH 27.9 pg (25.0-35.0); MCHC 33.3 g/dL (31.0-37.0); MCV 83.8 fL (80.0-100.0); Mean Platelet Volume 12.6; Monocytes # (A) 0.4 k/uL (0-1.0); Monocytes % (A) 5 %; Neutrophils % (A) 81 %; Platelet Count 149 k/uL (150-450); RBC 4.99 m/uL (3.80-5.40); RDW 16.1 % (11.5-15.5); WBC 7.4 k/uL (3.8-10.6)
[2024-05-13 11:16] LABS: Partial Thromboplastin Time 22.3 sec (22.0-30.0)
[2024-05-13] MEDS: SODIUM CHLORIDE 0.9% 1,000 ML IV ONE (12:44)
[2024-05-13] MEDS ORDERED: NALOXONE 0.4 MG/ML 1 ML VIAL IVP PRN (13:07)
[2024-05-13] MEDS ORDERED: IPRATROPIUM-ALBUTEROL 3 ML NEB INHALATION PRN (13:07)
[2024-05-13] MEDS: IPRATROPIUM-ALBUTEROL 3 ML NEB INHALATION SCH (15:47)
[2024-05-13] MEDS: methylPREDNISolone SOD SUCCI 125 MG/2 ML VIAL IV SCH (17:43)
[2024-05-13 21:39] LABS: Glucose,Whole Blood 187 mg/dL (70-110)
[2024-05-13] MEDS: AMOXIC-POT CLAV 875-125MG 1 EACH TAB PO SCH (22:27)
[2024-05-14] MEDS: ACETAMINOPHEN TAB 325 MG TAB PO PRN (00:43)
[2024-05-14] MEDS: ALPRAZolam 0.25 MG TAB PO STA (00:43)
[2024-05-14 06:22] LABS: Glucose,Whole Blood 175 mg/dL (70-110)
[2024-05-14 12:23] LABS: Glucose,Whole Blood 196 mg/dL (70-110)
--- NOTE | 2024-05-14 14:03 | P.CNPUL ---
History of Present Illness Consult date: 05/14/24 Requesting physician: Boone E Leo Reason for consult: dyspnea Chief complaint: Shortness of breath, cough, congestion History of present illness: This is a 78-year-old female with a known history of coronary artery disease with previous stent placement, diabetes mellitus, hypertension, hyperlipidemia, obstructive sleep apnea maintained on CPAP, essential tremors, former smoker of 40 years at 1 pack/day however quit over [address] Anthony is her primary care provider. She does not follow with pulmonary. She presented here to the emergency room yesterday with a 3 to 4-day history of increasing shortness of breath, cough and congestion, weakness and dyspnea on exertion. Chest x-ray reveals chronic changes but no acute pulmonary process. White count 7.4. Hemoglobin 13.9. Platelets 149. Sodium 134. Potassium 4.8. Bicarb 25. BUN 24. Creatinine 1.29. Glucose 139. Troponin negative x 1. proBNP 1000. Influenza screen negative. RSV screen negative. COVID screen negative. Consultation on the regular medical floor. She is awake and alert in no acute distress. Breathing a bit easier today compared to yesterday. She is maintaining good O2 saturations in the mid 90s on 3 L/min per nasal cannula. Afebrile. Hemodynamically stable. Review of Systems REVIEW OF SYSTEMS: CONSTITUTIONAL: Denies any recent significant weight loss or weight gain. EYES: Denies change in vision. EARS, NOSE, MOUTH, THROAT: Denies headaches, denies sore throat. CARDIOVASCULAR: Denies chest pain, palpitations or syncopal episodes. RESPIRATORY: Positive for shortness of breath, cough, congestion no hemoptysis. GASTROINTESTINAL: Denies change in appetite, denies abdominal pain GENITOURINARY: Denies hematuria, denies infections. MUSKULOSKELETAL: Denies pain, denies swelling. INTEGUMENTARY: Denies rash, denies eczema. NEUROLOGICAL: Denies recent memory loss, no recent seizure activity. PSYCHIATRIC: Denies anxiety, denies depression. HEMATOLOGIC/LYMPHATIC: Denies anemia, denies enlarged lymph nodes. Past Medical History Past Medical History: Coronary Artery Disease (CAD), Diabetes Mellitus, GERD/Reflux, Hyperlipidemia, Hypertension, Osteoarthritis (OA), Sleep Apnea/CPAP/BIPAP Additional Past Medical History / Comment(s): ESSENTIAL TREMORS, C-PAP MACHINE, ARTHRITIS BACK AND KNEES. History of Any Multi-Drug Resistant Organisms: None Reported Past Surgical History: Heart Catheterization With Stent, Hysterectomy, Joint Replacement, Orthopedic Surgery Additional Past Surgical History / Comment(s): HEART STENT X 2, LT UPPER ARM SX, TOTAL LEFT KNEE Past Anesthesia/Blood Transfusion Reactions: No Reported Reaction Date of Last Stent Placement:: 2007? Past Psychological History: Depression Smoking Status: Former smoker Past Alcohol Use History: None Reported Additional Past Alcohol Use History / Comment(s): QUIT SMOKING 2012 SMOKED 1 PPD FOR 30 YRS Past Drug Use History: None Reported - Past Family History Mother Family Medical History: Coronary Artery Disease (CAD), Dialysis, Hypertension Father Family Medical History: Cancer, Coronary Artery Disease (CAD) Additional Family Medical History / Comment(s): SKIN CANCER Medications and Allergies Home Medications Medication Instructions Recorded Confirmed Type Aspirin 81 mg PO DAILY 11/12/14 05/13/24 History Atorvastatin [Lipitor] 40 mg PO HS 11/12/14 05/13/24 History Metoprolol Tartrate [Lopressor] 50 mg PO BID 12/13/22 05/13/24 History Citalopram Hydrobromide [CeleXA] 40 mg PO DAILY 01/17/23 05/13/24 History Clopidogrel [Plavix] 75 mg PO DAILY #90 tablet 01/18/23 05/13/24 Rx Empagliflozin [Jardiance] 10 mg PO DAILY 05/13/24 05/13/24 History Ergocalciferol (Vitamin D2) 1,250 mcg PO QMONTHLY 05/13/24 05/13/24 History [Drisdol (50,000 Iu)] Furosemide [Lasix] 40 mg PO DAILY 05/13/24 05/13/24 History Gabapentin [Neurontin] 300 mg PO BID 05/13/24 05/13/24 History Losartan [Cozaar] 50 mg PO DAILY 05/13/24 05/13/24 History Multivitamins, Thera [Multivitamin 1 tab PO DAILY 05/13/24 05/13/24 History (formulary)] Potassium Chloride ER [K-Dur 20] 20 meq PO DAILY 05/13/24 05/13/24 History Allergies Allergy/AdvReac Type Severity Reaction Status Date / Time No Known Allergies Allergy Verified 05/13/24 09:35 Physical Exam Vitals: Vital Signs Temp Pulse Pulse Resp BP BP Pulse Ox 05/14/24 12:42 72 05/14/24 12:31 68 05/14/24 09:37 68 05/14/24 09:23 66 96 05/14/24 07:13 97.4 F L 81 18 148/64 96 05/14/24 02:17 98.1 F 75 21 126/55 94 L 05/13/24 21:35 98.0 F 82 19 139/64 90 L 05/13/24 21:13 80 20 132/53 90 L 05/13/24 20:11 69 05/13/24 20:02 66 05/13/24 17:00 98.3 F 78 18 129/58 94 L 05/13/24 16:00 77 18 121/54 95 05/13/24 15:54 79 18 05/13/24 15:49 94 L 05/13/24 15:47 68 18 05/13/24 15:00 74 18 146/57 97 Intake and Output 05/13/24 05/14/24 05/14/24 22:59 06:59 14:59 Output Total 650 Balance -650 Output: Urine 650 Other: Voiding Method External Catheter # Voids 1 Weight 83.007 kg GENERAL EXAM: Alert, pleasant 78-year-old female, on 3 L nasal cannula, comfortable in no apparent distress. HEAD: Normocephalic. EYES: Normal reaction of pupils, equal size. NOSE: Clear with pink turbinates. THROAT: No erythema or exudates. NECK: No masses, no JVD. CHEST: No chest wall deformity. LUNGS: Equal air entry with bilateral wheeze, diminished. CVS: S1 and S2 normal with no audible murmur, regular rhythm. ABDOMEN: No hepatosplenomegaly, normal bowel sounds, no guarding or rigidity. SPINE: No scoliosis or deformity SKIN: No rashes CENTRAL NERVOUS SYSTEM: No focal deficits, tone is normal in all 4 extremities. EXTREMITIES: There is no peripheral edema. No clubbing, no cyanosis. Peripheral pulses are intact. Results - Laboratory Findings CBC and BMP: 05/13/24 10:05 05/13/24 15:00 PT/INR, D-dimer PT 11.0 sec (10.0-12.5) 05/13/24 10:11 INR 1.0 (<1.2) 03/25/25 10:11 Abnormal lab findings: Abnormal Labs 05/13/24 05/13/24 05/13/24 10:05 10:11 21:38 RDW 16.1 H Plt Count 149 L Lymphocytes # 0.7 L Sodium 134 L Potassium 5.5 H BUN 24 H Creatinine 1.29 H Glucose 139 H POC Glucose (mg/dL) 187 H 05/14/24 05/14/24 06:19 12:21 RDW Plt Count Lymphocytes # Sodium Potassium BUN Creatinine Glucose POC Glucose (mg/dL) 175 H 196 H - Diagnostic Findings Chest x-ray: image reviewed Assessment and Plan Assessment: Acute hypoxemic respiratory failure secondary to an acute exacerbation of chronic obstructive pulmonary disease History of 40+ years pack per day smoking history however quit approximately 5 years ago Coronary artery disease with previous stent placement Hypertension Hyperlipidemia Diabetes mellitus Plan: The patient was seen and evaluated Chest x-ray, labs and medications reviewed Initiated on DuoNeb inhalations Initiated on Symbicort Initiated on Solu-Medrol Currently on Augmentin Check a procalcitonin Resume her home medications Would recommend follow-up in our office for full PFT testing We will continue to follow and make further recommendations based on her clinical status I have personally seen and examined the patient, performed the documentation and the assessment and plan as written. Number of minutes spent on the visit: 20 Dictation was produced using [employer] dictation software. Please excuse any grammatical, word or spelling errors. Time with Patient: Greater than 30
[2024-05-14 16:43] LABS: Glucose,Whole Blood 197 mg/dL (70-110)
[2024-05-14] MEDS: MELATONIN 5 MG TABLET PO PRN (19:52)
[2024-05-14 20:46] LABS: Glucose,Whole Blood 174 mg/dL (70-110)
--- NOTE | 2024-05-14 21:01 | P.HPIM ---
History of Present Illness H&P Date: 05/13/24 Chief Complaint: Shortness of breath/flulike symptoms 78-year-old female who presents to the emergency department complaining of difficulty breathing. Patient states she has been getting worse over the last 3 to 4 days and today she was so tired she could not even manipulate the stairs by herself. Family member states she was too weak to get up the stairs so he called the ambulance. Patient denies any fever or chills. Patient states she has had a cough and has found it harder to breathe more recently. Patient denies chest pain or palpitation. Patient has abdominal pain patient has nausea vomiting diarrhea. Patient was a smoker up until about 5 or 6 years ago. Patient is a diabetic. Chest x-ray reveals chronic changes but no acute pulmonary process. White count 7.4. Hemoglobin 13.9. Platelets 149. Sodium 134. Potassium 4.8. Bicarb 25. BUN 24. Creatinine 1.29. Glucose 139. Troponin negative x 1. proBNP 1000. Influenza screen negative. RSV screen negative. COVID screen negative. Review of Systems REVIEW OF SYSTEMS: CONSTITUTIONAL: No fever, no malaise, no fatigue. HEENT: No recent visual problems or hearing problems. Denied any sore throat. CARDIOVASCULAR: No chest pain, orthopnea, PND, no palpitations, no syncope. PULMONARY: No shortness of breath, no cough, no hemoptysis. GASTROINTESTINAL: No diarrhea, no nausea, no vomiting, no abdominal pain. NEUROLOGICAL: No headaches, no weakness, no numbness. HEMATOLOGICAL: Denies any bleeding or petechiae. GENITOURINARY: Denies any burning micturition, frequency, or urgency. MUSCULOSKELETAL/RHEUMATOLOGICAL: Denies any joint pain, swelling, or any muscle pain. ENDOCRINE: Denies any polyuria or polydipsia. The rest of the 14-point review of systems is negative. Past Medical History Past Medical History: Coronary Artery Disease (CAD), Diabetes Mellitus, GERD/Reflux, Hyperlipidemia, Hypertension, Osteoarthritis (OA), Sleep Apnea/CPAP/BIPAP Additional Past Medical History / Comment(s): ESSENTIAL TREMORS, C-PAP MACHINE, ARTHRITIS BACK AND KNEES. History of Any Multi-Drug Resistant Organisms: None Reported Past Surgical History: Heart Catheterization With Stent, Hysterectomy, Joint Replacement, Orthopedic Surgery Additional Past Surgical History / Comment(s): HEART STENT X 2, LT UPPER ARM SX, TOTAL LEFT KNEE Past Anesthesia/Blood Transfusion Reactions: No Reported Reaction Date of Last Stent Placement:: 2007? Past Psychological History: Depression Smoking Status: Former smoker Past Alcohol Use History: None Reported Past Drug Use History: None Reported - Past Family History Mother Family Medical History: Coronary Artery Disease (CAD), Dialysis, Hypertension Father Family Medical History: Cancer, Coronary Artery Disease (CAD) Additional Family Medical History / Comment(s): SKIN CANCER Medications and Allergies Home Medications Medication Instructions Recorded Confirmed Type Aspirin 81 mg PO DAILY 11/12/14 05/13/24 History Atorvastatin [Lipitor] 40 mg PO HS 11/12/14 05/13/24 History Metoprolol Tartrate [Lopressor] 50 mg PO BID 12/13/22 05/13/24 History Citalopram Hydrobromide [CeleXA] 40 mg PO DAILY 01/17/23 05/13/24 History Clopidogrel [Plavix] 75 mg PO DAILY #90 tablet 01/18/23 05/13/24 Rx Empagliflozin [Jardiance] 10 mg PO DAILY 05/13/24 05/13/24 History Ergocalciferol (Vitamin D2) 1,250 mcg PO QMONTHLY 05/13/24 05/13/24 History [Drisdol (50,000 Iu)] Furosemide [Lasix] 40 mg PO DAILY 05/13/24 05/13/24 History Gabapentin [Neurontin] 300 mg PO BID 05/13/24 05/13/24 History Losartan [Cozaar] 50 mg PO DAILY 05/13/24 05/13/24 History Multivitamins, Thera [Multivitamin 1 tab PO DAILY 05/13/24 05/13/24 History (formulary)] Potassium Chloride ER [K-Dur 20] 20 meq PO DAILY 05/13/24 05/13/24 History Allergies Allergy/AdvReac Type Severity Reaction Status Date / Time No Known Allergies Allergy Verified 05/13/24 09:35 Physical Exam Vitals: Vital Signs Temp Pulse Resp BP Pulse Ox 05/13/24 13:06 22 89 L 05/13/24 13:00 80 18 160/56 93 L 05/13/24 12:42 98.7 F 05/13/24 12:00 81 20 142/48 96 05/13/24 11:10 70 21 05/13/24 11:00 66 20 135/58 98 05/13/24 10:56 66 22 05/13/24 09:30 99.1 F 74 22 186/61 96 Intake and Output 05/12/24 05/13/24 05/13/24 22:59 06:59 14:59 Other: Weight 83.007 kg GENERAL EXAM: Alert, pleasant 78-year-old female, on 3 L nasal cannula, comfortable in no apparent distress. HEAD: Normocephalic. EYES: Normal reaction of pupils, equal size. THROAT: No erythema or exudates. NECK: No masses, no JVD. CHEST: No chest wall deformity. LUNGS: Equal air entry with bilateral wheeze, diminished. CVS: S1 and S2 normal with no audible murmur, regular rhythm. ABDOMEN: No hepatosplenomegaly, normal bowel sounds, no guarding or rigidity. CENTRAL NERVOUS SYSTEM: No focal deficits, tone is normal in all 4 extremities. EXTREMITIES: There is no peripheral edema. No clubbing, no cyanosis. Peripheral pulses are intact. Results CBC & Chem 7: 05/13/24 10:05 05/13/24 15:00 Labs: Abnormal Lab Results - Last 24 Hours (Table) 05/13/24 05/13/24 Range/Units 10:05 10:11 RDW 16.1 H (11.5-15.5) % Plt Count 149 L (150-450) k/uL Lymphocytes # 0.7 L (1.0-4.8) k/uL Sodium 134 L (137-145) mmol/L Potassium 5.5 H (3.5-5.1) mmol/L BUN 24 H (7-17) mg/dL Creatinine 1.29 H (0.52-1.04) mg/dL Glucose 139 H (74-99) mg/dL Assessment and Plan Assessment: 1. Acute hypoxemic respiratory failure; likely related to COPD exacerbation -Patient has been placed on O2 per nasal cannula; we will titrate or wean keeping O2 saturation above 92% 2. Acute exacerbation COPD -Patient has been placed on IV Solu-Medrol patient has been evaluated by pulmonary and is; placed on Symbicort inhaler -Augmentin 875 mg every 12 hours 3. Acute renal injury; BUN/creatinine elevated at 24/1.29 -We will monitor strict LAWRENCE's, daily weights, renal function electrolytes; avoid nephrotoxins and hypotension 4. Hypertension; losartan 50 mg daily; Lasix 40 mg daily; metoprolol 50 mg t wice daily 5. Hyperlipidemia; Lipitor 40 mg p.o. nightly 6. Diabetes mellitus/neuropathy; Jardiance 10 mg daily; monitor Accu-Cheks before every meal and at bedtime with insulin sliding scale; Neurontin 300 mg p.o. 7. History of coronary artery disease with stent placement; aspirin 81 mg daily ; Lipitor 40 mg daily; Plavix 75 mg daily 8. Anxiety/depression; Celexa 40 mg daily DVT prophylaxis; SCDs/subcu heparin CODE STATUS; full code
--- NOTE | 2024-05-14 21:02 | P.PN ---
Subjective Progress Note Date: 05/14/24 78-year-old female who presents to the emergency department complaining of difficulty breathing. Patient states she has been getting worse over the last 3 to 4 days and today she was so tired she could not even manipulate the stairs by herself. Family member states she was too weak to get up the stairs so he called the ambulance. Patient denies any fever or chills. Patient states she has had a cough and has found it harder to breathe more recently. Patient denies chest pain or palpitation. Patient has abdominal pain patient has nausea vomiting diarrhea. Patient was a smoker up until about 5 or 6 years ago. Patient is a diabetic. Chest x-ray reveals chronic changes but no acute pulmonary process. White count 7.4. Hemoglobin 13.9. Platelets 149. Sodium 134. Potassium 4.8. Bicarb 25. BUN 24. Creatinine 1.29. Glucose 139. Troponin negative x 1. proBNP 1000. Influenza screen negative. RSV screen negative. COVID screen negative. Objective - Vital Signs Vital signs: Vital Signs Temp 97.5 F L 05/14/24 14:00 Pulse 114 H 05/14/24 14:00 Resp 18 05/14/24 14:00 BP 132/64 05/14/24 14:00 Pulse Ox 96 05/14/24 09:23 FiO2 Intake & Output 05/13/24 05/14/24 05/14/24 18:59 06:59 18:59 Output Total 650 Balance -650 Weight 83.007 kg 83.007 kg Output: Urine 650 Other: Voiding Method External Catheter # Voids 1 - Exam GENERAL EXAM: Alert, pleasant 78-year-old female, on 3 L nasal cannula, comfortable in no apparent distress. HEAD: Normocephalic. EYES: Normal reaction of pupils, equal size. THROAT: No erythema or exudates. NECK: No masses, no JVD. CHEST: No chest wall deformity. LUNGS: Equal air entry with bilateral wheeze, diminished. CVS: S1 and S2 normal with no audible murmur, regular rhythm. ABDOMEN: No hepatosplenomegaly, normal bowel sounds, no guarding or rigidity. CENTRAL NERVOUS SYSTEM: No focal deficits, tone is normal in all 4 extremities. EXTREMITIES: There is no peripheral edema. No clubbing, no cyanosis. Peripheral pulses are intact. - Labs CBC & Chem 7: 05/13/24 10:05 03/25/25 15:00 Labs: Abnormal Lab Results - Last 24 Hours (Table) 05/13/24 05/14/24 05/14/24 Range/Units 21:38 06:19 12:21 POC Glucose (mg/dL) 187 H 175 H 196 H (70-110) mg/dL Assessment and Plan Assessment: 1. Acute hypoxemic respiratory failure; likely related to COPD exacerbation -Patient has been placed on O2 per nasal cannula; we will titrate or wean keeping O2 saturation above 92% 2. Acute exacerbation COPD -Patient has been placed on IV Solu-Medrol patient has been evaluated by pulmonary and is; placed on Symbicort inhaler -Augmentin 875 mg every 12 hours 3. Acute renal injury; BUN/creatinine elevated at 14/03. -We will monitor strict LAWRENCE's, daily weights, renal function electrolytes; avoid nephrotoxins and hypotension 4. Hypertension; losartan 50 mg daily; Lasix 40 mg daily; metoprolol 50 mg twice daily 5. Hyperlipidemia; Lipitor 40 mg p.o. nightly 6. Diabetes mellitus/neuropathy; Jardiance 10 mg daily; monitor Accu-Cheks before every meal and at bedtime with insulin sliding scale; Neurontin 300 mg p.o. 7. History of coronary artery disease with stent placement; aspirin 81 mg daily; Lipitor 40 mg daily; Plavix 75 mg daily 8. Anxiety/depression; Celexa 40 mg daily DVT prophylaxis; SCDs/subcu heparin CODE STATUS; full code
[2024-05-14] MEDS: SYMBICORT 160-4.5 MCG INHALER INHALATION SCH (21:20)
[2024-05-14] MEDS: ATORVASTATIN 40 MG TAB PO SCH (21:43)
[2024-05-14] MEDS: GABAPENTIN 300 MG CAP PO SCH (21:43)
[2024-05-14] MEDS: METOPROLOL TARTRATE 50 MG TAB PO SCH (21:46)
[2024-05-15 06:12] LABS: Glucose,Whole Blood 186 mg/dL (70-110)
[2024-05-15] MEDS: FUROSEMIDE 40 MG TAB PO SCH (07:50)
[2024-05-15] MEDS: DAPAGLIFLOZIN PROPANEDIOL 5 MG TABLET PO SCH (07:50)
[2024-05-15] MEDS: LOSARTAN 50 MG TAB PO SCH (07:50)
[2024-05-15] MEDS: MULTIVITAMINS, THERA 1 EACH TAB PO SCH (07:51)
[2024-05-15] MEDS: CITALOPRAM HYDROBROMIDE 20 MG TAB PO SCH (07:51)
[2024-05-15] MEDS: CLOPIDOGREL 75 MG TAB PO SCH (07:51)
[2024-05-15] MEDS: ASPIRIN 81 MG PO SCH (07:51)
[2024-05-15] MEDS: POTASSIUM CHLORIDE ER 20 MEQ TAB.ER PO SCH (07:51)
[2024-05-15 10:19] LABS: Basophils # (A) 0.02 X 10*3/uL (0.00-0.10); Basophils % (A) 0.2 %; Eosinophils # (A) 0 X 10*3/uL (0.04-0.35); Eosinophils % (A) 0 %; HCT 45.3 % (37.2-46.3); HGB 13.4 g/dL (12.0-15.0); Lymphocytes # (A) 0.51 X 10*3/uL (0.90-5.00); Lymphocytes % (A) 3.9 %; MCH 26.4 pg (27.0-32.0); MCHC 29.6 g/dL (32.0-37.0); MCV 89.3 FL (80.0-97.0); Mean Platelet Volume 11.1 FL (9.5-12.2); Monocytes # (A) 0.54 X 10*3/uL (0.20-1.00); Monocytes % (A) 4.1 %; NRBC Per 100 WBC 0 X 10*3/uL (0.00-0.01); Neutrophils # (A) 11.91 X 10*3/uL (1.80-7.70); Neutrophils % (A) 91.3 %; Platelet Count 171 X 10*3/uL (140-440); RBC 5.07 X 10*6/uL (4.10-5.20); RDW 17.3 % (11.5-14.5); WBC 13.05 X 10*3/uL (4.50-10.00)
[2024-05-15 10:37] LABS: BUN/Creat Ratio 23.08 Ratio (12.00-20.00); Calcium 8.1 mg/dL (8.7-10.3); Carbon Dioxide 22.9 mmol/L (21.6-31.8); Chloride 101 mmol/L (96-109); Glucose 190 mg/dL (70-110); Potassium 4.7 mmol/L (3.5-5.5); Sodium 137 mmol/L (135-145)
[2024-05-15 11:41] LABS: Glucose,Whole Blood 221 mg/dL (70-110)
--- NOTE | 2024-05-15 13:39 | P.PN ---
Subjective Progress Note Date: 05/15/24 This is a 78-year-old female with a known history of coronary artery disease with previous stent placement, diabetes mellitus, hypertension, hyperlipidemia, obstructive sleep apnea maintained on CPAP, essential tremors, former smoker of 40 years at 1 pack/day however quit over [address] Anthony is her primary care provider. She does not follow with pulmonary. She presented here to the emergency room yesterday with a 3 to 4-day history of increasing shortness of breath, cough and congestion, weakness and dyspnea on exertion. Chest x-ray reveals chronic changes but no acute pulmonary process. White count 7.4. Hemoglobin 13.9. Platelets 149. Sodium 134. Potassium 4.8. Bicarb 25. BUN 2 4. Creatinine 1.29. Glucose 139. Troponin negative x 1. proBNP 1000. Influenza screen negative. RSV screen negative. COVID screen negative. Consultation on the regular medical floor. She is awake and alert in no acute distress. Breathing a bit easier today compared to yesterday. She is ma intaining good O2 saturations in the mid 90s on 3 L/min per nasal cannula. Afebrile. Hemodynamically stable. The patient is seen today May 15, 2024 in follow-up on the regular medical floor. She is currently resting in bed. Awake and alert in no acute distress. Still somewhat bronchospastic and wheezing. She is maintaining O2 saturation in the 90s on 2 L/min per nasal cannula. No IV fluids. She is continued on DuoNeb inhalations, Symbicort, Solu-Medrol. Antibiotics in the form of Augmentin. White count 13.0. Hemoglobin 13.4. Platelets 171. Sodium 137. Potassium 4.7. Bicarb 23. BUN 30. Creatinine 1.3. Glucose 190. Procalcitonin was negative at 0.07. Objective - Vital Signs Vital signs: Vital Signs Temp 98.2 F 05/15/24 07:07 Pulse 72 05/15/24 08:34 Resp 18 05/15/24 07:07 BP 135/64 05/15/24 07:07 Pulse Ox 99 05/15/24 08:25 FiO2 Intake & Output 05/14/24 05/15/24 05/15/24 18:59 06:59 18:59 Output Total 650 550 Balance -650 -550 Output: Urine 650 550 Other: Voiding Method External Catheter # Voids 1 1 # Bowel Movements 0 - Exam GENERAL EXAM: Alert, 78-year-old female, sitting up in bed, on 3 L nasal cannula, in no apparent distress. HEAD: Normocephalic. EYES: Normal reaction of pupils, equal size. NOSE: Clear with pink turbinates. THROAT: No erythema or exudates. NECK: No masses, no JVD. CHEST: No chest wall deformity. LUNGS: Equal air entry with bilateral wheeze, diminished. CVS: S1 and S2 normal with no audible murmur, regular rhythm. ABDOMEN: No hepatosplenomegaly, normal bowel sounds, no guarding or rigidity. SPINE: No scoliosis or deformity SKIN: No rashes CENTRAL NERVOUS SYSTEM: No focal deficits, tone is normal in all 4 extremities. EXTREMITIES: There is no peripheral edema. No clubbing, no cyanosis. Peripheral pulses are intact. - Labs CBC & Chem 7: 05/15/24 06:37 05/15/24 06:37 Labs: Abnormal Lab Results - Last 24 Hours (Table) 05/14/24 05/14/24 05/15/24 Range/Units 16:42 20:44 06:11 WBC (4.50-10.00) X 10*3/uL MCH (27.0-32.0) pg MCHC (32.0-37.0) g/dL RDW (11.5-14.5) % Immature Gran # (0.00-0.04) X 10*3/uL Neutrophils # (1.80-7.70) X 10*3/uL Lymphocytes # (0.90-5.00) X 10*3/uL Eosinophils # (0.04-0.35) X 10*3/uL Anion Gap (4.00-12.00) mmol/L BUN (9.0-27.0) mg/dL Est GFR (CKD-EPI) (>=60) BUN/Creatinine Ratio (12.00-20.00) Ratio Glucose (70-110) mg/dL POC Glucose (mg/dL) 197 H 174 H 186 H (70-110) mg/dL Calcium (8.7-10.3) mg/dL 05/15/24 05/15/24 05/15/24 Range/Units 06:37 06:37 11:32 WBC 13.05 H (4.50-10.00) X 10*3/uL MCH 26.4 L (27.0-32.0) pg MCHC 29.6 L (32.0-37.0) g/dL RDW 17.3 H (11.5-14.5) % Immature Gran # 0.07 H (0.00-0.04) X 10*3/uL Neutrophils # 11.91 H (1.80-7.70) X 10*3/uL Lymphocytes # 0.51 L (0.90-5.00) X 10*3/uL Eosinophils # 0 L (0.04-0.35) X 10*3/uL Anion Gap 13.10 H (4.00-12.00) mmol/L BUN 30.0 H (9.0-27.0) mg/dL Est GFR (CKD-EPI) 42 L (>=60) BUN/Creatinine Ratio 23.08 H (12.00-20.00) Ratio Glucose 190 H (70-110) mg/dL POC Glucose (mg/dL) 221 H (70-110) mg/dL Calcium 8.1 L (8.7-10.3) mg/dL Microbiology - Last 24 Hours (Table) 05/13/24 10:11 Blood Culture - Preliminary Blood Assessment and Plan Assessment: Acute hypoxemic respiratory failure secondary to an acute exacerbation of chronic obstructive pulmonary disease. Procalcitonin negative History of 40+ years pack per day smoking history however quit approximately 5 years ago Coronary artery disease with previous stent placement Hypertension Hyperlipidemia Diabetes mellitus Plan: The patient was seen and evaluated Labs and medications reviewed Continue DuoNeb inhalations Continue Symbicort Continue Solu-Medrol Discontinue Augmentin Procalcitonin negative Add a flutter valve We will continue to follow I have personally seen and examined the patient, performed the documentation and the assessment and plan as written. Number of minutes spent on the visit: 10 Dictation was produced using [employer] dictation software. Please excuse any grammatical, word or spelling errors.
[2024-05-15 16:45] LABS: Glucose,Whole Blood 214 mg/dL (70-110)
[2024-05-15] MEDS: SODIUM CHLORIDE 0.45% 1,000 ML IV SCH (16:49)
[2024-05-15] MEDS: methylPREDNISolone SOD SUCCI 40 MG/ML 1 ML VIAL IV SCH (16:49)
--- NOTE | 2024-05-15 18:22 | P.PN ---
Subjective Progress Note Date: 05/15/24 78-year-old female who presents to the emergency department complaining of difficulty breathing. Patient states she has been getting worse over the last 3 to 4 days and today she was so tired she could not even manipulate the stairs by herself. Family member states she was too weak to get up the stairs so he called the ambulance. Patient denies any fever or chills. Patient states she has had a cough and has found it harder to breathe more recently. Patient denies chest pain or palpitation. Patient has abdominal pain patient has nausea vomiting diarrhea. Patient was a smoker up until about 5 or 6 years ago. Patient is a diabetic. Chest x-ray reveals chronic changes but no acute pulmonary process. White count 7.4. Hemoglobin 13.9. Platelets 149. Sodium 134. Potassium 4.8. Bicarb 25. BUN 24. Creatinine 1.29. Glucose 139. Troponin negative x 1. proBNP 1000. Influenza screen negative. RSV screen negative. COVID screen negative. 05/15/2024 Patient is seen and evaluated in follow-up; currently resting in bed. Awake and alert in no acute distress. Still somewhat bronchospastic and wheezing. -- She is maintaining O2 saturation in the 90s on 2 L/min per nasal cannula. No IV fluids. - She is continued on DuoNeb inhalations, Symbicort, Solu-Medrol. Antibiotics in the form of Augmentin. Blood work is reviewed and reveals White count 13.0. Hemoglobin 13.4. Platelets 171. Sodium 137. Potassium 4.7. Bicarb 23. BUN 30. Creatinine 1 .3. Glucose 190. Procalcitonin was negative at 0.07. --Slow trend up of creatinine which is at 1.3; we will start on slow IV fluid hydration; monitor strict LAWRENCE's; avoid nephrotoxins Objective - Vital Signs Vital signs: Vital Signs Temp 98.2 F 05/15/24 07:07 Pulse 72 05/15/24 08:34 Resp 18 05/15/24 07:07 BP 135/64 05/15/24 07:07 Pulse Ox 99 05/15/24 08:25 FiO2 Intake & Output 05/14/24 05/15/24 05/15/24 18:59 06:59 18:59 Output Total 650 550 Balance -650 -550 Output: Urine 650 550 Other: Voiding Method External Catheter # Voids 1 1 # Bowel Movements 0 - Exam GENERAL EXAM: Alert, pleasant 78-year-old female, on 3 L nasal cannula, comfortable in no apparent distress. HEAD: Normocephalic. EYES: Normal reaction of pupils, equal size. THROAT: No erythema or exudates. NECK: No masses, no JVD. CHEST: No chest wall deformity. LUNGS: Equal air entry with bilateral wheeze, diminished. CVS: S1 and S2 normal with no audible murmur, regular rhythm. ABDOMEN: No hepatosplenomegaly, normal bowel sounds, no guarding or rigidity. CENTRAL NERVOUS SYSTEM: No focal deficits, tone is normal in all 4 extremities. EXTREMITIES: There is no peripheral edema. No clubbing, no cyanosis. Peripheral pulses are intact. - Labs CBC & Chem 7: 05/15/24 06:37 05/15/24 06:37 Labs: Abnormal Lab Results - Last 24 Hours (Table) 05/14/24 05/14/24 05/15/24 Range/Units 16:42 20:44 06:11 WBC (4.50-10.00) X 10*3/uL MCH (27.0-32.0) pg MCHC (32.0-37.0) g/dL RDW (11.5-14.5) % Immature Gran # (0.00-0.04) X 10*3/uL Neutrophils # (1.80-7.70) X 10*3/uL Lymphocytes # (0.90-5.00) X 10*3/uL Eosinophils # (0.04-0.35) X 10*3/uL Anion Gap (4.00-12.00) mmol/L BUN (9.0-27.0) mg/dL Est GFR (CKD-EPI) (>=60) BUN/Creatinine Ratio (12.00-20.00) Ratio Glucose (70-110) mg/dL POC Glucose (mg/dL) 197 H 174 H 186 H (70-110) mg/dL Calcium (8.7-10.3) mg/dL 05/15/24 05/15/24 05/15/24 Range/Units 06:37 06:37 11:32 WBC 13.05 H (4.50-10.00) X 10*3/uL MCH 26.4 L (27.0-32.0) pg MCHC 29.6 L (32.0-37.0) g/dL RDW 17.3 H (11.5-14.5) % Immature Gran # 0.07 H (0.00-0.04) X 10*3/uL Neutrophils # 11.91 H (1.80-7.70) X 10*3/uL Lymphocytes # 0.51 L (0.90-5.00) X 10*3/uL Eosinophils # 0 L (0.04-0.35) X 10*3/uL Anion Gap 13.10 H (4.00-12.00) mmol/L BUN 30.0 H (9.0-27.0) mg/dL Est GFR (CKD-EPI) 42 L (>=60) BUN/Creatinine Ratio 23.08 H (12.00-20.00) Ratio Glucose 190 H (70-110) mg/dL POC Glucose (mg/dL) 221 H (70-110) mg/dL Calcium 8.1 L (8.7-10.3) mg/dL Microbiology - Last 24 Hours (Table) 05/13/24 10:11 Blood Culture - Preliminary Blood Assessment and Plan Assessment: 1. Acute hypoxemic respiratory failure; likely related to COPD exacerbation -Patient has been placed on O2 per nasal cannula; we will titrate or wean keeping O2 saturation above 92% 2. Acute exacerbation COPD -Patient has been placed on IV Solu-Medrol patient has been evaluated by pulmonary and is; placed on Symbicort inhaler -Augmentin 875 mg every 12 hours 3. Acute renal injury; BUN/creatinine elevated at 14/03. -We will monitor strict LAWRENCE's, daily weights, renal function electrolytes; avoid nephrotoxins and hypotension 4. Hypertension; losartan 50 mg daily; Lasix 40 mg daily; metoprolol 50 mg twice daily 5. Hyperlipidemia; Lipitor 40 mg p.o. nightly 6. Diabetes mellitus/neuropathy; Jardiance 10 mg daily; monitor Accu-Cheks before every meal and at bedtime with insulin sliding scale; Neurontin 300 mg p.o. 7. History of coronary artery disease with stent placement; aspirin 81 mg ruma y; Lipitor 40 mg daily; Plavix 75 mg daily 8. Anxiety/depression; Celexa 40 mg daily DVT prophylaxis; SCDs/subcu heparin CODE STATUS; full code
[2024-05-16 06:58] LABS: Glucose,Whole Blood 172 mg/dL (70-110)
[2024-05-16 08:23] LABS: Basophils # (A) 0.02 X 10*3/uL (0.00-0.10); Basophils % (A) 0.1 %; Eosinophils # (A) 0 X 10*3/uL (0.04-0.35); Eosinophils % (A) 0 %; HCT 41.2 % (37.2-46.3); HGB 12.7 g/dL (12.0-15.0); Lymphocytes # (A) 0.66 X 10*3/uL (0.90-5.00); Lymphocytes % (A) 4.8 %; MCH 27.3 pg (27.0-32.0); MCHC 30.8 g/dL (32.0-37.0); MCV 88.4 FL (80.0-97.0); Mean Platelet Volume 11.8 FL (9.5-12.2); Monocytes # (A) 0.68 X 10*3/uL (0.20-1.00); Monocytes % (A) 4.9 %; NRBC Per 100 WBC 0 X 10*3/uL (0.00-0.01); Neutrophils # (A) 12.42 X 10*3/uL (1.80-7.70); Neutrophils % (A) 89.6 %; Platelet Count 192 X 10*3/uL (140-440); RBC 4.66 X 10*6/uL (4.10-5.20); RDW 17.2 % (11.5-14.5); WBC 13.87 X 10*3/uL (4.50-10.00)
[2024-05-16 08:37] LABS: BUN/Creat Ratio 30.42 Ratio (12.00-20.00); Blood Urea Nitrogen 36.5 mg/dL (9.0-27.0); Calcium 7.9 mg/dL (8.7-10.3); Carbon Dioxide 22.7 mmol/L (21.6-31.8); Chloride 100 mmol/L (96-109); Glucose 180 mg/dL (70-110); Potassium 5.4 mmol/L (3.5-5.5); Sodium 132 mmol/L (135-145)
[2024-05-16 11:27] LABS: Glucose,Whole Blood 170 mg/dL (70-110)
--- NOTE | 2024-05-16 12:44 | P.PN ---
Subjective Progress Note Date: 05/16/24 Principal diagnosis: Shortness of breath. This is a 78-year-old female with a known history of coronary artery disease with previous stent placement, diabetes mellitus, hypertension, hyperlipidemia, obstructive sleep apnea maintained on CPAP, essential tremors, former smoker of 40 years at 1 pack/day however quit over [address] Anthony is her primary care provider. She does not follow with pulmonary. She presented here to the emergency room yesterday with a 3 to 4-day history of increasing shortness of breath, cough and congestion, weakness and dyspnea on exertion. Chest x-ray reveals chronic changes but no acute pulmonary process. White count 7.4. Hemoglobin 13.9. Platelets 149. Sodium 134. Potassium 4.8. Bicarb 25. BUN 24. Creatinine 1.29. Glucose 139. Troponin negative x 1. proBNP 1000. Influenza screen negative. RSV screen negative. COVID screen negative. Consultation on the regular medical floor. She is awake and alert in no acute distress. Breathing a bit easier today compared to yesterday. She is maintaining good O2 saturations in the mid 90s on 3 L/min per nasal cannula. Afebrile. Hemodynamically stable. The patient is seen today May 15, 2024 in follow-up on the regular medical floor. She is currently resting in bed. Awake and alert in no acute distress. Still somewhat bronchospastic and wheezing. She is maintaining O2 saturation in the 90s on 2 L/min per nasal cannula. No IV fluids. She is continued on DuoNeb inhalations, Symbicort, Solu-Medrol. Antibiotics in the form of Augmentin. White count 13.0. Hemoglobin 13.4. Platelets 171. Sodium 137. Potassium 4.7. Bicarb 23. BUN 30. Creatinine 1.3. Glucose 190. Procalcitonin was negative at 0.07. Progress note dated May 16, 2024. 78-year-old female seen today in room 475. The patient is feeling better. She continues on oxygen at 2 L. No IV fluids. The patient Solu-Medrol changed to prednisone 40 mg a day. The patient could be considered for possible discharge. Procalcitonin level was normal at 0.07. Other laboratory data includes a white count of 13.9, hemoglobin 12.7, hematocrit 41.2, and a platelet count of 192,000. Sodium 132, potassium 5.4, chlorides 100, CO2 23, anion gap 9, BUN 37, creatinine 1.2, and glucose 170. Calcium is 7.9. Blood cultures are negative. No new x-rays today. Objective - Vital Signs Vital signs: Vital Signs Temp 98.6 F 05/16/24 07:25 Pulse 68 05/16/24 11:57 Resp 21 05/16/24 07:50 BP 152/68 05/16/24 07:25 Pulse Ox 98 05/16/24 08:56 FiO2 Intake & Output 05/15/24 05/16/24 05/16/24 18:59 06:59 18:59 Intake Total 120 Balance 120 Intake: Oral 120 Other: Voiding Method Toilet Toilet Diaper Diaper # Voids 4 1 # Bowel Movements 1 - Exam No acute distress, oriented 3. No conversational dyspnea or accessory muscle use. No audible wheezing. The patient remains on 2 L. HEENT examination is grossly unremarkable. Mucous membranes are moist. No oral lesions. Neck supple. Full range of motion. No adenopathy thyromegaly or neck vein distention. Cardiovascular examination reveals regular rhythm rate. S1-S2 normal. No S3 or S4. No discernible murmur noted. Heart sounds are distant. Lungs reveal bilateral expiratory wheezes and rhonchi. Breath sounds are improved. No crackles. Breath sounds are equal bilaterally. Abdomen soft bowel sounds are heard. No masses or tenderness. Extremities are intact. No cyanosis clubbing or edema. Skin is without rash or lesion. Neurologic examination is brief but nonfocal. - Labs CBC & Chem 7: 05/16/24 04:06 05/16/24 04:06 Labs: Abnormal Lab Results - Last 24 Hours (Table) 05/15/24 05/16/24 05/16/24 Range/Units 16:42 04:06 04:06 WBC 13.87 H (4.50-10.00) X 10*3/uL MCHC 30.8 L (32.0-37.0) g/dL RDW 17.2 H (11.5-14.5) % Immature Gran # 0.09 H (0.00-0.04) X 10*3/uL Neutrophils # 12.42 H (1.80-7.70) X 10*3/uL Lymphocytes # 0.66 L (0.90-5.00) X 10*3/uL Eosinophils # 0 L (0.04-0.35) X 10*3/uL Sodium 132 L (135-145) mmol/L BUN 36.5 H (9.0-27.0) mg/dL Est GFR (CKD-EPI) 47 L (>=60) BUN/Creatinine Ratio 30.42 H (12.00-20.00) Ratio Glucose 180 H (70-110) mg/dL POC Glucose (mg/dL) 214 H (70-110) mg/dL Calcium 7.9 L (8.7-10.3) mg/dL 05/16/24 05/16/24 Range/Units 06:57 11:25 WBC (4.50-10.00) X 10*3/uL MCHC (32.0-37.0) g/dL RDW (11.5-14.5) % Immature Gran # (0.00-0.04) X 10*3/uL Neutrophils # (1.80-7.70) X 10*3/uL Lymphocytes # (0.90-5.00) X 10*3/uL Eosinophils # (0.04-0.35) X 10*3/uL Sodium (135-145) mmol/L BUN (9.0-27.0) mg/dL Est GFR (CKD-EPI) (>=60) BUN/Creatinine Ratio (12.00-20.00) Ratio Glucose (70-110) mg/dL POC Glucose (mg/dL) 172 H 170 H (70-110) mg/dL Calcium (8.7-10.3) mg/dL Microbiology - Last 24 Hours (Table) 05/13/24 10:11 Blood Culture - Preliminary Blood Assessment and Plan Assessment: Acute hypoxemic respiratory failure secondary to an acute exacerbation of chronic obstructive pulmonary disease. History of 40+ years pack per day smoking history however quit approximately 5 years ago. Coronary artery disease with previous stent placement. Hypertension. Hyperlipidemia. Diabetes mellitus. Plan: Plan dated May 16, 2024. The patient is seen today in room 475. The patient COPD exacerbation is much improved. She is much less bronchospastic. She is currently on 2 L. She will need to be assessed for home O2. Her Solu-Medrol was converted to prednisone 40 mg a day. She asked me about what stage her lung disease is in. I told her she would follow-up with me in the office, after discharge at which time, we would do a pulmonary function test, which would give us disease severity, and specifically what disease she has. Additional recommendations and suggestions are forthcoming. Prognosis is guarded. Labs, x-rays, and medications are reviewed. Dictation was produced using [employer] dictation software. Please excuse any grammatical, word or spelling errors. Time with Patient: Less than 30
[2024-05-16 15:51] VITALS: BP 118/67; PULSE 65; RESP 20; TEMP 97.5
[2024-05-17] MEDS ORDERED: predniSONE 20 MG TAB PO SCH (09:00)
[2024-05-20] MEDS ORDERED: ERGOCALCIFEROL 1,250 MCG (50,000 IU) CAPSULE PO SCH (09:00)
== END 2024-05-16 16:36 | disposition home or self-care (01) | DRG 189 ==
LOC: EC 09:25 → 5NMEDONC 13:10 → 4SSUR 16:52
PROVIDERS: ADMIT Internal Medicine; ATTEND Internal Medicine
DX: J96.01 Acute respiratory failure with hypoxia (principal); N17.9 Acute kidney failure, unspecified; J44.1 Chronic obstructive pulmonary disease with (acute) exacerbation; E11.42 Type 2 diabetes mellitus with diabetic polyneuropathy; I10 Essential (primary) hypertension; F32.A Depression, unspecified; Z11.52 Encounter for screening for COVID-19; E78.5 Hyperlipidemia, unspecified; I25.10 Atherosclerotic heart disease of native coronary artery without angina pectoris; G47.30 Sleep apnea, unspecified; K21.9 Gastro-esophageal reflux disease without esophagitis; M19.90 Unspecified osteoarthritis, unspecified site; Z79.899 Other long term (current) drug therapy; Z79.84 Long term (current) use of oral hypoglycemic drugs; F41.9 Anxiety disorder, unspecified; G25.0 Essential tremor; Z79.02 Long term (current) use of antithrombotics/antiplatelets; Z79.82 Long term (current) use of aspirin; Z82.49 Family history of ischemic heart disease and other diseases of the circulatory system; Z90.710 Acquired absence of both cervix and uterus; Z95.5 Presence of coronary angioplasty implant and graft
CPT/HCPCS: 36415; 71046; 80048; 80053; 83605; 83735; 83880; 84132; 84145; 84484; 85025; 85610; 85730; 87040; 87636; 93005; 94640; 94667; 94760; 96361; 96374; 96375; 99285

== ENCOUNTER 2024-05-26 15:11 | Inpatient (IN) | payer MEDICARE ==
[2024-05-26] MEDS: ASPIRIN 81 MG PO STA (15:32)
--- NOTE | 2024-05-26 15:32 | ED ---
General Adult HPI - General Chief complaint: Chest Pain Stated complaint: Chest Pain Time Seen by Provider: 05/26/24 15:12 Source: patient, EMS, RN notes reviewed Mode of arrival: EMS Limitations: no limitations - History of Present Illness Initial comments: Patient is a 78-year-old female present to the emergency department with concerns for chest discomfort. Onset of symptoms was prior to arrival while walking. Discomfort lasted around 20 minutes and has now resolved. Discomfort felt like tightness. Patient did have mild nausea and lightheadedness. No dyspnea. No diaphoresis. Patient does have cardiac history with different symptoms previously. - Related Data Home Medications Medication Instructions Recorded Confirmed Aspirin 81 mg PO DAILY 11/12/14 05/26/24 Atorvastatin [Lipitor] 40 mg PO HS 11/12/14 05/26/24 Metoprolol Tartrate [Lopressor] 50 mg PO BID 12/13/22 05/26/24 Citalopram Hydrobromide [CeleXA] 40 mg PO DAILY 01/17/23 05/26/24 Empagliflozin [Jardiance] 10 mg PO DAILY 05/13/24 05/26/24 Ergocalciferol (Vitamin D2) 1,250 mcg PO Q30D 05/13/24 05/26/24 [Drisdol (50,000 Iu)] Furosemide [Lasix] 40 mg PO DAILY 05/13/24 05/26/24 Gabapentin [Neurontin] 300 mg PO BID 05/13/24 05/26/24 Losartan [Cozaar] 50 mg PO DAILY 05/13/24 05/26/24 Multivitamins, Thera [Multivitamin 1 tab PO DAILY 05/13/24 05/26/24 (formulary)] Potassium Chloride ER [K-Dur 20] 20 meq PO DAILY 05/13/24 05/26/24 Budesonide/Formoterol Fumarate 2 puff INHALATION RT-BID 05/26/24 05/26/24 [Breyna 160-4.5 Mcg Inhaler] Fluticasone/Vilanterol [Breo 1 puff INHALATION DIRECTED 05/26/24 05/26/24 Ellipta 200-25 Mcg Inhaler] Previous Rx's Medication Instructions Recorded Clopidogrel [Plavix] 75 mg PO DAILY #90 tablet 01/18/23 Allergies Allergy/AdvReac Type Severity Reaction Status Date / Time No Known Allergies Allergy Verified 05/26/24 15:49 Review of Systems ROS Statement: Those systems with pertinent positive or pertinent negative responses have been documented in the HPI. ROS Other: All systems not noted in ROS Statement are negative. Constitutional: Denies: fever Eyes: Denies: eye pain ENT: Denies: ear pain Respiratory: Denies: cough, dyspnea Cardiovascular: Reports: as per HPI, chest pain Endocrine: Denies: fatigue Gastrointestinal: Reports: nausea Skin: Denies: rash Neurological: Denies: weakness Past Medical History Past Medical History: Coronary Artery Disease (CAD), Diabetes Mellitus, GERD/Reflux, Hyperlipidemia, Hypertension, Osteoarthritis (OA), Sleep Apnea/CPAP/BIPAP Additional Past Medical History / Comment(s): ESSENTIAL TREMORS, C-PAP MACHINE, ARTHRITIS BACK AND KNEES. History of Any Multi-Drug Resistant Organisms: None Reported Past Surgical History: Heart Catheterization With Stent, Hysterectomy, Joint Replacement, Orthopedic Surgery Additional Past Surgical History / Comment(s): HEART STENT X 2, LT UPPER ARM SX, TOTAL LEFT KNEE Past Anesthesia/Blood Transfusion Reactions: No Reported Reaction Date of Last Stent Placement:: 2007? Past Psychological History: Depression Smoking Status: Former smoker Past Alcohol Use History: None Reported Past Drug Use History: None Reported - Past Family History Mother Family Medical History: Coronary Artery Disease (CAD), Dialysis, Hypertension Father Family Medical History: Cancer, Coronary Artery Disease (CAD) Additional Family Medical History / Comment(s): SKIN CANCER General Exam Limitations: no limitations General appearance: alert, in no apparent distress Head exam: Present: normocephalic Eye exam: Present: normal appearance Neck exam: Present: normal inspection Respiratory exam: Present: normal lung sounds bilaterally Cardiovascular Exam: Present: regular rate, normal rhythm, normal heart sounds Expanded Peripheral pulses: 2+: Radial (R), Radial (L), Posterior Tibialis (R), Posterior Tibialis (L) GI/Abdominal exam: Present: soft. Absent: tenderness Extremities exam: Present: normal inspection. Absent: pedal edema, calf tenderness Neurological exam: Present: alert Psychiatric exam: Present: normal affect, normal mood Skin exam: Present: normal color Course Vital Signs 05/26/24 05/26/24 05/26/24 15:14 15:17 16:56 Temperature 98.3 F Pulse Rate 50 L 46 L Respiratory 20 18 Rate Blood Pressure 125/51 102/62 O2 Sat by Pulse 90 L 97 99 Oximetry EKG Findings - EKG Results: EKG: interpreted by ERMD (First-degree AV block with a AK of 223. Borderline lateral ST depression), sinus rhythm, normal axis, normal QRS EKG shows: bradycardia Medical Decision Making - Medical Decision Making Was pt. sent in by a medical professional or institution (, POP, INDUSTRIAL TECHNOLOGIST, urgent care, hospital, or alf...) When possible be specific @ -No Did you speak to anyone other than the patient for history (EMS, parent, family, police, friend...)? What history was obtained from this source @ -No Did you review nursing and triage notes (agree or disagree)? Why? @ -I reviewed and agree with nursing and triage notes Were old charts reviewed (outside hosp., previous admission, EMS record, old EKG, old radiological studies, urgent care reports/EKG's, alf records)? Report findings @ -No old charts were reviewed Differential Diagnosis (chest pain, altered mental status, abdominal pain women, abdominal pain men, vaginal bleeding, weakness, fever, dyspnea, syncope, headache, dizziness, GI bleed, back pain, seizure, CVA, palpatations, mental he alth, musculoskeletal)? @ -Differential Chest Pain: Stable Angina, Unstable Angina, STEMI, NSTEMI Aortic Dissection, Pneumothorax, Musculoskeletal, Esophageal Spasm GERD, Cholecystitis, Pancreatitis, Zoster, this is not meant to be an all-inclusive list. EKG interpreted by me (3pts min.). @ -As above X-rays interpreted by me (1pt min.). @ -None done CT interpreted by me (1pt min.). @ -None done U/S interpreted by me (1pt. min.). @ -None done What testing was considered but not performed or refused? (CT, X-rays, U/S, labs)? Why? @ -None What meds were considered but not given or refused? Why? @ -None Did you discuss the management of the patient with other professionals (professionals i.e. POP Galindo, INDUSTRIAL TECHNOLOGIST, lab, RT, psych nurse, 7th grade social studies teacher, well drill operator cable tool, teacher, compliance review officer, casework supervisor)? Give summary @ -Case discussed with Dr. Freitas who will admit covering Dr. Anthony Was smoking cessation discussed for >3mins.? @ -No Was critical care preformed (if so, how long)? @ -No Were there social determinants of health that impacted care today? How? (Homelessness, low income, unemployed, alcoholism, drug addiction, transportation, low edu. Level, literacy, decrease access to med. care, [facility], rehab)? @ -No Was there de-escalation of care discussed even if they declined (Discuss DNR or withdrawal of care, Hospice)? DNR status @ -No What co-morbidities impacted this encounter? (DM, HTN, Smoking, COPD, CAD, Cancer, CVA, ARF, Chemo, Hep., AIDS, mental health diagnosis, sleep apnea, morbid obesity)? @ -History of coronary artery disease Was patient admitted / discharged? Hospital course, mention meds given and route, prescriptions, significant lab abnormalities, going to OR and other pertinent info. @ -Patient presents with chest discomfort. EKG with borderline ST depression laterally. Otherwise evaluation unremarkable. Patient will be admitted with cardiac consult. Admission orders written. Patient updated. Undiagnosed new problem with uncertain prognosis? @ -No Drug Therapy requiring intensive monitoring for toxicity (Heparin, Nitro, Insulin, Cardizem)? @ -No Were any procedures done? @ -No Diagnosis/symptom? @ -Chest pain Acute, or Chronic, or Acute on Chronic? @ -Acute Uncomplicated (without systemic symptoms) or Complicated (systemic symptoms)? @ -Default Side effects of treatment? @ -No Exacerbation, Progression, or Severe Exacerbation? @ -No Poses a threat to life or bodily function? How? (Chest pain, [place], [place], pneumonia, PE, COPD, DKA, ARF, appy, cholecystitis, CVA, Diverticulitis, Homicidal, Suicidal, threat to staff... and all critical care pts) @ -Threat to cardiac function - Lab Data Result diagrams: 05/26/24 15:33 05/26/24 15:33 Lab Results 05/26/24 05/26/24 05/26/24 Range/Units 15:33 15:33 15:33 WBC 17.2 H (3.8-10.6) k/uL RBC 5.71 H (3.80-5.40) m/uL Hgb 15.4 (11.4-16.0) gm/dL Hct 49.9 H (34.0-46.0) % MCV 87.4 (80.0-100.0) fL MCH 27.0 (25.0-35.0) pg MCHC 30.9 L (31.0-37.0) g/dL RDW 16.1 H (11.5-15.5) % Plt Count 291 (150-450) k/uL MPV 8.4 Neutrophils % 75 % Lymphocytes % 15 % Monocytes % 4 % Eosinophils % 4 % Basophils % 0 % Neutrophils # 13.0 H (1.3-7.7) k/uL Lymphocytes # 2.6 (1.0-4.8) k/uL Monocytes # 0.7 (0-1.0) k/uL Eosinophils # 0.7 (0-0.7) k/uL Basophils # 0.0 (0-0.2) k/uL Hypochromasia Moderate Anisocytosis Slight PT 10.4 (10.0-12.5) sec INR 0.9 (<1.2) APTT 19.6 L (22.0-30.0) sec D-Dimer 1.35 H (<0.60) mg/L FEU Sodium 137 (137-145) mmol/L Potassium 5.1 (3.5-5.1) mmol/L Chloride 97 L (98-107) mmol/L Carbon Dioxide 30 (22-30) mmol/L Anion Gap 10 mmol/L BUN 37 H (7-17) mg/dL Creatinine 1.54 H (0.52-1.04) mg/dL Est GFR (CKD-EPI)AfAm 37 (>60 ml/min/1.73 sqM) Est GFR (CKD-EPI)NonAf 32 (>60 ml/min/1.73 sqM) Glucose 115 H (74-99) mg/dL Calcium 9.8 (8.4-10.2) mg/dL Magnesium 2.5 H (1.6-2.3) mg/dL Total Bilirubin 0.9 (0.2-1.3) mg/dL AST 26 (14-36) U/L ALT 46 H (4-34) U/L Alkaline Phosphatase 85 (38-126) U/L Troponin I (0.000-0.034) ng/mL Total Protein 7.3 (6.3-8.2) g/dL Albumin 4.3 (3.5-5.0) g/dL 05/26/24 Range/Units 15:33 WBC (3.8-10.6) k/uL RBC (3.80-5.40) m/uL Hgb (11.4-16.0) gm/dL Hct (34.0-46.0) % MCV (80.0-100.0) fL MCH (25.0-35.0) pg MCHC (31.0-37.0) g/dL RDW (11.5-15.5) % Plt Count (150-450) k/uL MPV Neutrophils % % Lymphocytes % % Monocytes % % Eosinophils % % Basophils % % Neutrophils # (1.3-7.7) k/uL Lymphocytes # (1.0-4.8) k/uL Monocytes # (0-1.0) k/uL Eosinophils # (0-0.7) k/uL Basophils # (0-0.2) k/uL Hypochromasia Anisocytosis PT (10.0-12.5) sec INR (<1.2) APTT (22.0-30.0) sec D-Dimer (<0.60) mg/L FEU Sodium (137-145) mmol/L Potassium (3.5-5.1) mmol/L Chloride (98-107) mmol/L Carbon Dioxide (22-30) mmol/L Anion Gap mmol/L BUN (7-17) mg/dL Creatinine (0.52-1.04) mg/dL Est GFR (CKD-EPI)AfAm (>60 ml/min/1.73 sqM) Est GFR (CKD-EPI)NonAf (>60 ml/min/1.73 sqM) Glucose (74-99) mg/dL Calcium (8.4-10.2) mg/dL Magnesium (1.6-2.3) mg/dL Total Bilirubin (0.2-1.3) mg/dL AST (14-36) U/L ALT (4-34) U/L Alkaline Phosphatase (38-126) U/L Troponin I 0.015 (0.000-0.034) ng/mL Total Protein (6.3-8.2) g/dL Albumin (3.5-5.0) g/dL Disposition Clinical Impression: Chest pain Disposition: ADMITTED IP TO THIS HOSP Is patient prescribed a controlled substance at d/c from ED?: No Referrals: Anisa Anthony MD [Primary Care Provider] - 1-2 days Time of Disposition: 17:40
[2024-05-26 15:56] LABS: Anisocytosis Slight; Basophils % (A) 0 %; Eosinophils # (A) 0.7 k/uL (0-0.7); Eosinophils % (A) 4 %; HCT 49.9 % (34.0-46.0); HGB 15.4 gm/dL (11.4-16.0); Hypochromasia Moderate; Lymphocytes # (A) 2.6 k/uL (1.0-4.8); Lymphocytes % (A) 15 %; MCHC 30.9 g/dL (31.0-37.0); MCV 87.4 fL (80.0-100.0); Mean Platelet Volume 8.4; Monocytes # (A) 0.7 k/uL (0-1.0); Monocytes % (A) 4 %; Neutrophils % (A) 75 %; Platelet Count 291 k/uL (150-450); RBC 5.71 m/uL (3.80-5.40); RDW 16.1 % (11.5-15.5); WBC 17.2 k/uL (3.8-10.6)
[2024-05-26 16:03] LABS: ALT 46 U/L (4-34); AST 26 U/L (14-36); African American GFR (CKD) 37 (>60 ml/min/1.73 sqM); Albumin 4.3 g/dL (3.5-5.0); Alkaline Phosphatase 85 U/L (38-126); Anion Gap 10 mmol/L; Blood Urea Nitrogen 37 mg/dL (7-17); Calcium 9.8 mg/dL (8.4-10.2); Carbon Dioxide 30 mmol/L (22-30); Chloride 97 mmol/L (98-107); Glucose 115 mg/dL (74-99); Magnesium 2.5 mg/dL (1.6-2.3); Non-African American GFR(CKD) 32 (>60 ml/min/1.73 sqM); Potassium 5.1 mmol/L (3.5-5.1); Sodium 137 mmol/L (137-145); Total Bilirubin 0.9 mg/dL (0.2-1.3); Total Protein 7.3 g/dL (6.3-8.2)
[2024-05-26 16:11] LABS: INR 0.9 (<1.2); Prothrombin Time 10.4 sec (10.0-12.5)
--- NOTE | 2024-05-26 16:12 | XR ---
EXAMINATION TYPE: XR chest 2V DATE OF EXAM: 05/26/2024 CLINICAL INDICATION: Female, 78 years old with history of Chest Pain, TECHNIQUE: Frontal and lateral views of the chest are obtained. COMPARISON: Chest x-ray May 13, 2024 FINDINGS: There is chronic parenchymal changes bilaterally without suspicious new focal air space op acity, pleural effusion, or pneumothorax seen. The cardiac silhouette size is stable and upper limit s of normal with atherosclerotic thoracic aorta redemonstrated. Coronary artery stent on lateral view is redemonstrated. The osseous structures are intact. IMPRESSION: Chronic changes without acute pulmonary process. [facility], , 05/26/2024 4:10 PM
[2024-05-26 16:27] LABS: Partial Thromboplastin Time 19.6 sec (22.0-30.0)
[2024-05-26] MEDS: SODIUM CHLORIDE 0.9% 1,000 ML IV STA (16:53)
[2024-05-26] MEDS: SODIUM CHLORIDE 0.9% 500 ML 500 ML IV STA (16:53)
[2024-05-26] MEDS ORDERED: HYDROcodone/APAP 5-325MG 1 EACH TAB PO PRN (17:06)
[2024-05-26] MEDS ORDERED: HYDROmorphone 0.5 MG/0.5 ML SYRINGE IVP PRN (17:06)
[2024-05-26] MEDS ORDERED: NON FORMULARY DRUG (Fluticasone/Vilanterol [Breo Ellipta 200-25 Mcg Inhaler] 1 EACH Blst.W INHALATION SCH (17:15)
--- NOTE | 2024-05-26 17:27 | CT ---
EXAMINATION TYPE: CT angio chest DATE OF EXAM: 05/26/2024 COMPARISON: No new lung screening CT April 13, 2023 CLINICAL INDICATION: Female, 78 years old with history of cp, CP. Elevated D-dimer., TECHNIQUE: CTA scan of the thorax is performed with IV Contrast, patient injected with 71 ml mL of Isovue 370, p ulmonary embolism protocol. MIP Images are created on CT scanner and reviewed. CT DLP: 523.4 mGycm. Automated Exposure Control for Dose Reduction was Utilized. FINDINGS: LUNGS: Mild to moderate underlying emphysematous change bilaterally is redemonstrated. Scattered sm all nodules are again seen. No suspicious new or enlarging pulmonary nodules. There is no pleural eff usion or pneumothorax seen. The tracheobronchial tree is patent. HEART: Size within normal limits. Moderate to severe three-vessel coronary artery calcification is re demonstrated. MEDIASTINUM: There is satisfactory enhancement of the pulmonary artery and its branches, there is no CT evidence for pulmonary embolism. Bovine type aortic arch which is normal variant is again seen. Th ere are no greater than 1 cm hilar or mediastinal lymph nodes. No pericardial effusion is seen. OTHER: Slight scoliotic curvature in the thoracic spine is redemonstrated with multilevel spurring. IMPRESSION: 1. No CT evidence for acute pulmonary embolism. 2. No suspicious new acute pulmonary process. [facility], , 05/26/2024 5:24 PM
[2024-05-26] MEDS ORDERED: NITROGLYCERIN SL TABS 0.4 MG TAB SUBLINGUAL PRN (17:40)
[2024-05-26 18:13] LABS: Influenza A Not Detected (Not Detectd); Influenza B Not Detected (Not Detectd); RSV Not Detected (Not Detectd)
[2024-05-26] MEDS: ATORVASTATIN 40 MG TAB PO SCH (20:15)
[2024-05-26] MEDS: GABAPENTIN 300 MG CAP PO SCH (20:15)
--- NOTE | 2024-05-26 22:36 | HP ---
HISTORY AND PHYSICAL CHIEF COMPLAINT: Shortness of breath. HISTORY OF PRESENT ILLNESS: This is a 78-year-old woman with a past medical history of CAD, history of GERD as well as multiple medical issues, complaining of chest discomfort, which is felt in the anterior part of the chest and felt like a discomfort and the patient came to [facility], admitted for further evaluation and treatment. Initial troponins are negative at this time. The patient had multiple abnormalities in the back. The EKG showed ST-T changes and some bradycardia. The patient is being admitted for further evaluation and treatment. There is no history of any fever, rigors, or chills at this time. PAST MEDICAL HISTORY: History of CAD, diabetes mellitus type 2. Rest of the history and rest of the chart are also reviewed. HOME MEDICATIONS: Reviewed include K-Dur 10 mEq. Dose and rest of medications reviewed. ALLERGIES: None. FAMILY HISTORY: History of CAD, dialysis, hypertension. SOCIAL HISTORY: Previous history of smoking. REVIEW OF SYSTEMS: Fourteen-point review of systems is negative except as mentioned earlier. PHYSICAL EXAMINATION: VITAL SIGNS: Pulse 46, blood pressure 109/60, respirations 18. HEENT: Conjunctivae normal. NECK: No JVD. CARDIOVASCULAR: S1, S2. RESPIRATIONS: Breath sounds diminished at the bases. A few scattered rhonchi. ABDOMEN: Soft, nontender. LEGS: No edema. NERVOUS SYSTEM: Nonfocal. SKIN: No ulcer, rash, bleeding. JOINTS: No active deforming arthropathy. LABORATORY DATA: WBC 17.1. ASSESSMENT: 1. Chest pain, possible unstable angina. 2. Elevated WBC. 3. Chronic changes in the chest x-ray. 4. History of coronary artery disease. 5. Diabetes mellitus type 2. 6. Hypertension. 7. Hyperlipidemia. 8. Sleep apnea. 9. History of essential tremors. 10.History of coronary artery disease stent. RECOMMENDATIONS AND DISCUSSION: This is a 78-year-old woman, who presented with multiple medical issues, we will monitor the patient closely. Continue with unstable angina protocol. Resume home medications. CT angio of chest was ordered. We will continue to monitor. Cardiology consultation. Prognosis guarded because of multiple complex medical issues. Further recommendations to follow. See orders for further details. MMODL / IJN: [id number] /
[2024-05-26] MEDS: SYMBICORT 160-4.5 MCG INHALER INHALATION SCH (23:32)
[2024-05-26] MEDS: METOPROLOL TARTRATE 50 MG TAB PO SCH (23:38)
[2024-05-27] MEDS: PANTOPRAZOLE 40 MG TABLET PO SCH (05:38)
[2024-05-27 08:43] LABS: BUN/Creat Ratio 19.13 Ratio (12.00-20.00); Blood Urea Nitrogen 28.7 mg/dL (9.0-27.0); Calcium 8.7 mg/dL (8.7-10.3); Carbon Dioxide 28.5 mmol/L (21.6-31.8); Chloride 102 mmol/L (96-109); Chol/HDL Ratio 3.48 Ratio; Glucose 136 mg/dL (70-110); Potassium 4.6 mmol/L (3.5-5.5); Sodium 141 mmol/L (135-145)
[2024-05-27 08:50] LABS: HCT 43.9 % (37.2-46.3); HGB 13.4 g/dL (12.0-15.0); MCH 27.4 pg (27.0-32.0); MCHC 30.5 g/dL (32.0-37.0); MCV 89.8 FL (80.0-97.0); Mean Platelet Volume 11.5 FL (9.5-12.2); NRBC Per 100 WBC 0 X 10*3/uL (0.00-0.01); Platelet Count 250 X 10*3/uL (140-440); RBC 4.89 X 10*6/uL (4.10-5.20); RDW 17.3 % (11.5-14.5); WBC 16.56 X 10*3/uL (4.50-10.00)
[2024-05-27] MEDS ORDERED: DOBUTamine DRIP for NUC MED 500 MG in DEXTROSE/WATER 1 250ML.BAG IV PRN (09:04)
[2024-05-27] MEDS: ASPIRIN 81 MG PO SCH (09:21)
[2024-05-27] MEDS: CLOPIDOGREL 75 MG TAB PO SCH (09:21)
[2024-05-27] MEDS: FUROSEMIDE 40 MG TAB PO SCH (09:21)
[2024-05-27] MEDS: MULTIVITAMINS, THERA 1 EACH TAB PO SCH (09:22)
[2024-05-27] MEDS: CITALOPRAM HYDROBROMIDE 20 MG TAB PO SCH (09:22)
--- NOTE | 2024-05-27 10:05 | P.CRDCN ---
History of Present Illness History of present illness: HISTORY OF PRESENT ILLNESS: This is a 78-year-old female with a past medical history significant for coronary artery disease with previous stenting, hypertension, hyperlipidemia, peripheral arterial disease, and diabetes. Patient follows in the office with Dr. Kc. We have been asked to see the patient in consultation for chest pain. Patient examined at the bedside. Patient states yesterday she was at Dr. Wheeler office for an appointment. She states after her appointment she was walking out the office when she began to have chest discomfort. She states that the pain was on both sides of her her chest and went into her neck and jaw. She states the pain lasted for approximately 20 minutes. Since that episode, the patient has denied any further episodes of chest pain or pressure. DIAGNOSTICS: - EKG reveals sinus mechanism with nonspecific ST-T wave changes. - Chest xray chronic changes without acute pulmonary process - Chest CTA: Negative for pulmonary embolism. No suspicious new acute pulmonary process. - Laboratory data: WBC 17.2. Hemoglobin 15.4. Platelet count 291. D-dimer 1.35. Sodium 137. Potassium 5.1. BUN 37. Creatinine 1.54 troponin negative x 3. - Current home cardiac medications include metoprolol tartrate 50 mg twice a day, losartan 50 mg daily, Lasix 40 mg daily, Jardiance 10 mg daily, Plavix 75 mg daily, Lipitor 40 mg daily, aspirin 81 mg daily - Most recent echocardiogram obtained in May 2022 revealed ejection fraction 55%, trace to mild MR, trace to mild TR - Cardiac catheterization history: 2009 revealing 80% mid LAD and 60% distal RCA. Patient underwent stenting of the mid LAD -Patient underwent Lexiscan stress test in February 2021 revealing normal study with mild fixed defect involving the mid anterior wall secondary to breast attenuation. REVIEW OF SYSTEMS: At the time of my exam: CONSTITUTIONAL: Denies fever or chills. HEENT: Denies blurred vision, vision changes, or eye pain. Denies hemoptysis CARDIOVASCULAR: Denies chest pain. Denies orthopnea. Denies PND. Denies palpitations RESPIRATORY: Denies shortness of breath. GASTROINTESTINAL: Denies abdominal pain. Denies nausea or vomiting. HEMATOLOGIC: Denies bleeding disorders. GENITOURINARY: Denies any blood in urine. SKIN: Denies pruitis. Denies rash. PHYSICAL EXAM: VITAL SIGNS: Reviewed. GENERAL: Well-developed in no acute distress. HEENT: Head is normocephalic. Pupils are equal, round. Sclerae anicteric. Mucous membranes of the mouth are moist. Neck supple. No JVD or thyromegaly LUNGS: Respirations even and unlabored. Lungs essentially clear to auscultation bilaterally. HEART: Regular rate and rhythm. S1 and S2 heard. ABDOMEN: Soft. Nondistended. Nontender. EXTREMITIES: Normal range of motion. No clubbing or cyanosis. Peripheral pulses intact. No lower extremity edema NEUROLOGIC: Awake and alert. Oriented x 3. ASSESSMENT: Chest pain Leukocytosis Sinus bradycardia Coronary artery disease with previous stenting of the mid LAD, 01/2010 Peripheral arterial disease with previous balloon angioplasty of left SFA, 12/2022 Hypertension Hyperlipidemia Diabetes PLAN: An acute coronary event has been ruled out Obtain 2D echo to assess cardiac structure and function Resume home cardiac medications Decrease metoprolol tartrate to 25 mg twice a day Patient to undergo dobutamine stress echo today If negative, patient may be discharged home from a cardiac standpoint Further recommendations pending patient course Nurse practitioner note has been reviewed by physician. Signing provider agrees with the documented findings, assessment, and plan of care documented by AREA COORDINATOR as a scribe. Past Medical History Past Medical History: Coronary Artery Disease (CAD), Diabetes Mellitus, GERD/Reflux, Hyperlipidemia, Hypertension, Osteoarthritis (OA), Sleep Apnea/CPAP/BIPAP Additional Past Medical History / Comment(s): ESSENTIAL TREMORS, C-PAP MACHINE (patient states she does not use), ARTHRITIS BACK AND KNEES. History of Any Multi-Drug Resistant Organisms: None Reported Past Surgical History: Heart Catheterization With Stent, Hysterectomy, Joint Replacement, Orthopedic Surgery Additional Past Surgical History / Comment(s): HEART STENT X 2, LT UPPER ARM SX, TOTAL LEFT KNEE Past Anesthesia/Blood Transfusion Reactions: Previous Problems w/ Anesthesia Additional Past Anesthesia/Blood Transfusion Reaction / Comment(s): Patient states she will sometimes have a hard time waking up Date of Last Stent Placement:: 2007? Past Psychological History: Depression Smoking Status: Former smoker Past Alcohol Use History: None Reported Additional Past Alcohol Use History / Comment(s): QUIT SMOKING 2013 SMOKED 1 PPD FOR 30 YRS Past Drug Use History: None Reported - Past Family History Mother Family Medical History: Coronary Artery Disease (CAD), Dialysis, Hypertension Father Family Medical History: Cancer, Coronary Artery Disease (CAD) Additional Family Medical History / Comment(s): SKIN CANCER Medications and Allergies Home Medications Medication Instructions Recorded Confirmed Type Aspirin 81 mg PO DAILY 11/12/14 05/26/24 History Atorvastatin [Lipitor] 40 mg PO HS 11/12/14 05/26/24 History Metoprolol Tartrate [Lopressor] 50 mg PO BID 12/13/22 05/26/24 History Citalopram Hydrobromide [CeleXA] 40 mg PO DAILY 01/17/23 05/26/24 History Clopidogrel [Plavix] 75 mg PO DAILY #90 tablet 01/18/23 05/26/24 Rx Empagliflozin [Jardiance] 10 mg PO DAILY 05/13/24 05/26/24 History Ergocalciferol (Vitamin D2) 1,250 mcg PO Q30D 05/13/24 05/26/24 History [Drisdol (50,000 Iu)] Furosemide [Lasix] 40 mg PO DAILY 05/13/24 05/26/24 History Gabapentin [Neurontin] 300 mg PO BID 05/13/24 05/26/24 History Losartan [Cozaar] 50 mg PO DAILY 05/13/24 05/26/24 History Multivitamins, Thera [Multivitamin 1 tab PO DAILY 05/13/24 05/26/24 History (formulary)] Potassium Chloride ER [K-Dur 20] 20 meq PO DAILY 05/13/24 05/26/24 History Budesonide/Formoterol Fumarate 2 puff INHALATION RT-BID 05/26/24 05/26/24 History [Breyna 160-4.5 Mcg Inhaler] Fluticasone/Vilanterol [Breo 1 puff INHALATION DIRECTED 05/26/24 05/26/24 History Ellipta 200-25 Mcg Inhaler] Allergies Allergy/AdvReac Type Severity Reaction Status Date / Time No Known Allergies Allergy Verified 05/26/24 15:49 Physical Exam Vitals: Vital Signs Temp Pulse Pulse Resp BP BP Pulse Ox 05/27/24 00:28 98.0 F 47 L 15 114/77 97 05/26/24 23:23 97.6 F 47 L 17 125/48 97 05/26/24 20:17 59 L 17 109/64 97 05/26/24 18:26 56 L 20 140/47 97 05/26/24 16:56 46 L 18 102/62 99 05/26/24 15:17 97 05/26/24 15:14 98.3 F 50 L 20 125/51 90 L Intake and Output 05/26/24 05/27/24 05/27/24 22:59 06:59 14:59 Other: # Voids 2 Weight 79.832 kg 79.832 kg Results 05/27/24 05:10 05/27/24 05:10 Cardiac Enzymes 05/26/24 05/26/24 05/26/24 Range/Units 15:33 15:33 18:23 AST 26 (14-36) U/L Troponin I 0.015 0.013 (0.000-0.034) ng/mL 05/26/24 Range/Units 21:20 AST (14-36) U/L Troponin I <0.012 (0.000-0.034) ng/mL Coagulation 05/26/24 Range/Units 15:33 PT 10.4 (10.0-12.5) sec APTT 19.6 L (22.0-30.0) sec CBC 05/26/24 Range/Units 15:33 WBC 17.2 H (3.8-10.6) k/uL RBC 5.71 H (3.80-5.40) m/uL Hgb 15.4 (11.4-16.0) gm/dL Hct 49.9 H (34.0-46.0) % Plt Count 291 (150-450) k/uL Comprehensive Metabolic Panel 05/26/24 Range/Units 15:33 Sodium 137 (137-145) mmol/L Potassium 5.1 (3.5-5.1) mmol/L Chloride 97 L (98-107) mmol/L Carbon Dioxide 30 (22-30) mmol/L BUN 37 H (7-17) mg/dL Creatinine 1.54 H (0.52-1.04) mg/dL Glucose 115 H (74-99) mg/dL Calcium 9.8 (8.4-10.2) mg/dL AST 26 (14-36) U/L ALT 46 H (4-34) U/L Alkaline Phosphatase 85 (38-126) U/L Total Protein 7.3 (6.3-8.2) g/dL Albumin 4.3 (3.5-5.0) g/dL Current Medications Generic Name Dose Route Start Last Admin Trade Name Freq PRN Reason Stop Dose Admin Hydrocodone Bitart/Acetaminophen 1 each 05/26/24 17:06 Hydrocodone/Apap 5-325mg 1 Each Tab PO Q6HR PRN Pain Aspirin 81 mg 05/27/24 09:00 Aspirin 81 Mg PO DAILY [facility] Atorvastatin Calcium 40 mg 05/26/24 21:00 05/26/24 20:15 Atorvastatin 40 Mg Tab PO 40 mg HS [facility] Administration Budesonide/Formoterol Fumarate 2 puff 05/26/24 20:00 05/26/24 23:32 Symbicort 160-4.5 Mcg Inhaler INHALATION Not Given RT-BID [facility] Citalopram Hydrobromide 40 mg 05/27/24 09:00 Citalopram Hydrobromide 20 Mg Tab PO DAILY [facility] Clopidogrel Bisulfate 75 mg 05/27/24 09:00 Clopidogrel 75 Mg Tab PO DAILY [facility] Ergocalciferol 1,250 mcg 06/19/24 09:00 Ergocalciferol 1,250 Mcg (50,000 Iu) Capsule PO Q30D [facility] Furosemide 40 mg 05/27/24 09:00 Furosemide 40 Mg Tab PO DAILY [facility] Gabapentin 300 mg 05/26/24 21:00 05/26/24 20:15 Gabapentin 300 Mg Cap PO 300 mg BID [facility] Administration Hydromorphone HCl 0.5 mg 05/26/24 17:06 Hydromorphone 0.5 Mg/0.5 Ml Syringe IVP Q6HR PRN Severe Pain (Scale 7 to 10) Metoprolol Tartrate 50 mg 05/26/24 21:00 05/27/24 07:23 Metoprolol Tartrate 50 Mg Tab PO Not Given BID [facility] Multivitamins 1 each 05/27/24 09:00 Multivitamins, Thera 1 Each Tab PO DAILY [facility] Nitroglycerin 0.4 mg 05/26/24 17:40 Nitroglycerin Sl Tabs 0.4 Mg Tab SUBLINGUAL Q5M PRN Chest Pain Pantoprazole Sodium 40 mg 05/27/24 07:30 05/27/24 05:38 Pantoprazole 40 Mg Tablet PO Not Given AC-BRKFST KAYCEE Intake and Output 05/26/24 05/27/24 05/27/24 22:59 06:59 14:59 Other: # Voids 2 Weight 79.832 kg 79.832 kg 05/26/24 15:33 05/26/24 15:33
[2024-05-27 11:23] LABS: Basophils # (A) 0.06 X 10*3/uL (0.00-0.10); Basophils % (A) 0.4 %; Eosinophils # (A) 0.63 X 10*3/uL (0.04-0.35); Eosinophils % (A) 3.8 %; Lymphocytes # (A) 2.14 X 10*3/uL (0.90-5.00); Lymphocytes % (A) 12.9 %; Monocytes # (A) 1.52 X 10*3/uL (0.20-1.00); Monocytes % (A) 9.2 %; Neutrophils # (A) 12.03 X 10*3/uL (1.80-7.70); Neutrophils % (A) 72.6 %
[2024-05-27] MEDS: METOPROLOL TARTRATE 25 MG TAB PO SCH (20:29)
--- NOTE | 2024-05-28 06:54 | CA ---
Dobutamine Stress Echocardiogram Report Megan Narayan Age: 78 Gender: F : 1945 Exam Date: 05/27/2024 12:02 Exam Location: [facility] Ordering Physician: Wandy Turner Referring Physician: [id number] Crm Developer: Mary Schaeffer RDCS Technologist: Ht (in): 65 Wt (lb): 176 Procedure CPT: Indication: CP ICD-9 Codes: Rhythm: Patient History: CHEST PAIN, DIABETIC, HTN, PRIOR CATH WITH STENTS X 2, HYPERCHOLESTEROLEMIA, FAMILY HX OF HEART DISEASE, NUMBNESS IN FACE/NECK, COPD Cardiac Medications: SEE CHART,,,,, Medications in past 24 hours: Contrast: Definity Total Dose (mL): 2 Stress Results Protocol: Dobutamine Peak Dose (???g/kg/min): 40 Duration (min:sec): Atropine:(mg) 0.5 Target HR: 122 Double Product: [id number] Resting HR: 55 Resting BP: 138 / 51 Peak HR: 144 Peak BP: 154 / 38 Max Predicted HR: 143 101 % Max Predicted HR Stress Summary: BP Response: Reason for Termination: Target HR Cardiac Symptoms: NO SYMPTOMS ECG Analysis Resting EKG: Stress EKG: Arrhythmia: Echo Analysis Base Echo Analysis: Low Echo Anaylsis: Peak Echo Analysis: Recovery Echo: MEASUREMENTS (Male/Female) Normal Values CONCLUSIONS Abnormal EKG in response to dobutamine Questionable area in the basal septal concerning for hypokinesia during peak dobutamine infusion Dr. Av Sotomayor MD (Electronically Signed) Final Date: 28 May 2024 06:53
--- NOTE | 2024-05-28 06:55 | CA ---
Transthoracic Echo Report Name: Megan Narayan Age: 78 Gender: F : 1945 Exam Date: 05/27/2024 11:15 Exam Location: [facility] Ht (in): 65 Wt (lb): 176 Ordering Physician: Wandy Turner Attending/Referring Phys: [id number], Yue [employer] W[employer] Cindy Osuna RDCS Procedure CPT: Indications: LV function, CP Cardiac Hx: Technical Quality: Technically difficult study Contrast 1: Definity Total Dose (mL): 3 Contrast 2: Total Dose (mL): MEASUREMENTS (Male / Female) Normal Values 2D ECHO LV Diastolic Diameter PLAX 4.2 cm 4.2 - 5.9 / 3.9 - 5.3 cm LV Systolic Diameter PLAX 2.7 cm IVS Diastolic Thickness 1.0 cm 0.6 - 1.0 / 0.6 - 0.9 cm LVPW Diastolic Thickness 0.9 cm 0.6 - 1.0 / 0.6 - 0.9 cm LV Relative Wall Thickness 0.5 LVOT Diameter 2.1 cm LV Diastolic Volume MOD BP 100.6 cm??? 67 - 155 / 56 - 104 cm??? LV Systolic Volume MOD BP 31.3 cm??? 22 - 58 / 19 - 49 cm??? LV Ejection Fraction MOD BP 68.9 % >= 55 % LV Cardiac Index MOD BP 1969.9 cm???/min???m??? LV Diastolic Volume MOD 4C 97.0 cm??? LV Systolic Volume MOD 4C 31.8 cm??? LV Ejection Fraction MOD 4C 67.3 % LV Cardiac Index MOD 4C 1852.6 cm???/min???m??? LV Diastolic Length 4C 8.3 cm LV Systolic Length 4C 6.6 cm LV Diastolic Volume MOD 2C 103.1 cm??? LV Systolic Volume MOD 2C 30.6 cm??? LV Ejection Fraction MOD 2C 70.3 % LV Cardiac Index MOD 2C 2057.7 cm???/min???m??? LV Diastolic Length 2C 8.4 cm LV Systolic Length 2C 6.5 cm LA Volume 53.3 cm??? 18 - 58 / 22 - 52 cm??? LA Volume Index 27.5 cm???/m??? 16 - 28 cm???/m??? M-MODE LV Diastolic Diameter MM 4.9 cm 4.2 - 5.9 / 3.9 - 5.3 cm LV Systolic Diameter MM 2.5 cm LV Cardiac Index MM Teich 2616.9 cm???/min???m??? IVS Diastolic Thickness MM 0.9 cm 0.6 - 1.0 / 0.6 - 0.9 cm LVPW Diastolic Thickness MM 1.0 cm 0.6 - 1.0 / 0.6 - 0.9 cm LV Relative Wall Thickness MM 0.4 0.24 - 0.42 / 0.22 - 0.42 LV Mass Index MM 90.6 g/m??? 49 - 115 / 43 - 95 g/m??? DOPPLER AV Peak Velocity 141.5 cm/s AV Peak Gradient 8.0 mmHg AV Mean Velocity 96.3 cm/s AV Mean Gradient 4.3 mmHg AV Velocity Time Integral 33.0 cm LVOT Peak Velocity 116.5 cm/s LVOT Peak Gradient 5.4 mmHg LVOT Velocity Time Integral 25.2 cm LVOT Stroke Volume 85.9 cm??? LVOT Stroke Volume Index 45.8 ml/m??? LVOT Cardiac Index 2439.2 cm???/min???m??? AV Area Cont Eq vti 2.6 cm??? AV Area Cont Eq pk 2.8 cm??? MV Peak Velocity 115.3 cm/s MV Peak Gradient 5.3 mmHg MV Mean Velocity 55.0 cm/s MV Mean Gradient 1.6 mmHg MV Velocity Time Integral 34.3 cm MV Area PHT 3.4 cm??? Mitral E Point Velocity 83.6 cm/s Mitral A Point Velocity 90.9 cm/s Mitral E to A Ratio 0.9 MV Deceleration Time 221.0 ms PV Peak Velocity 102.1 cm/s PV Peak Gradient 4.2 mmHg FINDINGS Left Ventricle Left ventricular ejection fraction is estimated at 60-65 %. Mildly increased left ventricular mass. Mildly increased septal wall thickness. Mildly increased posterior wall thickness. Left ventricular cavity size normal. No obvious regional wall motion abnormalities. Right Ventricle Borderline enlarged right ventricle with normal function. Unable to estimate the right ventricular systolic pressure. Right Atrium Normal right atrial size. Left Atrium Mildly increased left atrial volume. Mitral Valve Mitral valve thickened. Mitral annular calcification. No evidence for mitral valve prolapse. No mitral stenosis. No mitral regurgitation. Aortic Valve Trileaflet aortic valve. No aortic valve stenosis or regurgitation. Tricuspid Valve Structurally normal tricuspid valve. No tricuspid stenosis. Trace tricuspid regurgitation. Pulmonic Valve Structurally normal pulmonic valve. No pulmonic stenosis. Trace pulmonic regurgitation. Pericardium No pericardial effusion. Prominent epicardial fat. Aorta Normal size aortic root and proximal ascending aorta. CONCLUSIONS Normal biventricular systolic function No significant valvular abnormalities No pericardial effusion Previewed by: Dr. Av Sotomayor MD (Electronically Signed) Final Date: 28 May 2024 06:54
[2024-05-28] MEDS ORDERED: NITROGLYCERIN SL TABS 0.4 MG TAB SUBLINGUAL PRN (07:12)
[2024-05-28] MEDS ORDERED: ALPRAZolam 0.5 MG TAB PO PRN (07:12)
[2024-05-28] MEDS ORDERED: ALPRAZolam 0.25 MG TAB PO PRN (07:12)
[2024-05-28 08:16] LABS: Basophils # (A) 0.07 X 10*3/uL (0.00-0.10); Basophils % (A) 0.5 %; Eosinophils # (A) 0.65 X 10*3/uL (0.04-0.35); Eosinophils % (A) 4.6 %; HCT 38.9 % (37.2-46.3); HGB 11.9 g/dL (12.0-15.0); Lymphocytes # (A) 1.85 X 10*3/uL (0.90-5.00); Lymphocytes % (A) 13.2 %; MCH 27.5 pg (27.0-32.0); MCHC 30.6 g/dL (32.0-37.0); MCV 89.8 FL (80.0-97.0); Mean Platelet Volume 11.1 FL (9.5-12.2); Monocytes # (A) 1.52 X 10*3/uL (0.20-1.00); Monocytes % (A) 10.9 %; NRBC Per 100 WBC 0 X 10*3/uL (0.00-0.01); Neutrophils # (A) 9.78 X 10*3/uL (1.80-7.70); Neutrophils % (A) 69.9 %; Platelet Count 222 X 10*3/uL (140-440); RBC 4.33 X 10*6/uL (4.10-5.20); RDW 17.1 % (11.5-14.5); WBC 13.99 X 10*3/uL (4.50-10.00)
[2024-05-28 08:20] LABS: Blood Urea Nitrogen 18.2 mg/dL (9.0-27.0); Carbon Dioxide 28.5 mmol/L (21.6-31.8); Chloride 100 mmol/L (96-109); Glucose 129 mg/dL (70-110); Potassium 4.3 mmol/L (3.5-5.5); Sodium 138 mmol/L (135-145)
[2024-05-28] MEDS: ATORVASTATIN 80 MG TAB PO STA (09:04)
[2024-05-28] MEDS: ASPIRIN 325 MG TAB PO STA (09:04)
--- NOTE | 2024-05-28 09:10 | P.PN ---
Subjective HISTORY OF PRESENT ILLNESS: This is a 78-year-old female with a past medical history significant for coronary artery disease with previous stenting, hypertension, hyperlipidemia, peripheral arterial disease, and diabetes. Patient follows in the office with Dr. Kc. We have been asked to see the patient in consultation for chest pain. Patient examined at the bedside. Patient states yesterday she was at Dr. Wheeler office for an appointment. She states after her appointment she was walking out the office when she began to have chest discomfort. She states that the pain was on both sides of her her chest and went into her neck and jaw. She states the pain lasted for approximately 20 minutes. Since that episode, the patient has denied any further episodes of chest pain or pressure. DIAGNOSTICS: - EKG reveals sinus mechanism with nonspecific ST-T wave changes. - Chest xray chronic changes without acute pulmonary process - Chest CTA: Negative for pulmonary embolism. No suspicious new acute pulmonary process. - Laboratory data: WBC 17.2. Hemoglobin 15.4. Platelet count 291. D-dimer 1.35. Sodium 137. Potassium 5.1. BUN 37. Creatinine 1.54 troponin negative x 3. - Current home cardiac medications include metoprolol tartrate 50 mg twice a day, losartan 50 mg daily, Lasix 40 mg daily, Jardiance 10 mg daily, Plavix 75 mg daily, Lipitor 40 mg daily, aspirin 81 mg daily - Most recent echocardiogram obtained in May 2022 revealed ejection fraction 55%, trace to mild MR, trace to mild TR - Cardiac catheterization history: 2009 revealing 80% mid LAD and 60% distal RCA. Patient underwent stenting of the mid LAD -Patient underwent Lexiscan stress test in February 2021 revealing normal study with mild fixed defect involving the mid anterior wall secondary to breast attenuation. 05/28/2024 Patient examined this morning at the bedside. Patient denies any further episodes of chest pain or pressure. She denies shortness of breath. She underwent dobutamine stress echo yesterday which was abnormal. Vital signs are stable. Echocardiogram this morning revealed ejection fraction 60 to 65% with no pericardial effusion and no significant valvular abnormalities noted. PHYSICAL EXAM: VITAL SIGNS: Reviewed. GENERAL: Well-developed in no acute distress. HEENT: Head is normocephalic. Pupils are equal, round. Sclerae anicteric. Mucous membranes of the mouth are moist. Neck supple. No JVD or thyromegaly LUNGS: Respirations even and unlabored. Lungs essentially clear to auscultation bilaterally. HEART: Regular rate and rhythm. S1 and S2 heard. ABDOMEN: Soft. Nondistended. Nontender. EXTREMITIES: Normal range of motion. No clubbing or cyanosis. Peripheral pulses intact. No lower extremity edema NEUROLOGIC: Awake and alert. Oriented x 3. ASSESSMENT: Chest pain, s/p abnormal dobutamine stress echo Leukocytosis Sinus bradycardia Coronary artery disease with previous stenting of the mid LAD, 01/2010 Peripheral arterial disease with previous balloon angioplasty of left SFA, 12/2022 Hypertension Hyperlipidemia Diabetes PLAN: Continue current cardiac medications including aspirin, Lipitor, Plavix, Lasix, and metoprolol Patient to undergo cardiac catheterization today with Dr. Kc Further recommendations pending patient course Nurse practitioner note has been reviewed by physician. Signing provider agrees with the documented findings, assessment, and plan of care documented by PHYS THERAPIST as a scribe. Objective - Vital Signs Vital signs: Vital Signs Temp 97.4 F L 05/28/24 07:10 Pulse 57 L 05/28/24 07:10 Resp 18 05/28/24 07:10 BP 117/55 05/28/24 07:10 Pulse Ox 95 05/28/24 07:44 FiO2 Intake & Output 05/27/24 05/28/24 05/28/24 18:59 06:59 18:59 Other: # Voids 3 2 - Labs CBC & Chem 7: 05/28/24 05:13 05/28/24 05:13 Labs: Abnormal Lab Results - Last 24 Hours (Table) 05/27/24 05/28/24 05/28/24 Range/Units 05:10 05:13 05:13 WBC 13.99 H (4.50-10.00) X 10*3/uL Hgb 11.9 L (12.0-15.0) g/dL MCHC 30.6 L (32.0-37.0) g/dL RDW 17.1 H (11.5-14.5) % Immature Gran # 0.18 H 0.12 H (0.00-0.04) X 10*3/uL Neutrophils # 12.03 H 9.78 H (1.80-7.70) X 10*3/uL Monocytes # 1.52 H 1.52 H (0.20-1.00) X 10*3/uL Eosinophils # 0.63 H 0.65 H (0.04-0.35) X 10*3/uL Est GFR (CKD-EPI) 42 L (>=60) Glucose 129 H (70-110) mg/dL Calcium 8.0 L (8.7-10.3) mg/dL
--- NOTE | 2024-05-28 09:49 | P.PN ---
Subjective Progress Note Date: 05/27/24 This is a pleasant 78-year-old female who follows with Dr. Anthony in the outpatient setting presented with chest pain being closely monitored by cardiology. Patient has a significant past medical history of coronary artery disease with previous stenting reported feeling chest discomfort that she had felt previously and came to the hospital for further evaluation. Patient is scheduled to undergo stress testing today and per cardiology if negative patient may be discharged home. Patient reports she has no further chest pain or palpitations or feeling dizzy or lightheaded. Patient reports she chronically wears oxygen outpatient and has 1 to 2 L on currently. Patient is afebrile denies chest pain or shortness of breath. Will await stress testing results. Review of systems: Constitutional: No reports of fatigue, fever, or chills Cardiovascular: No reports of chest pain or palpitations Respiratory: No reports of shortness of breath or cough GI: No reports of nausea, no reports of vomiting, no diarrhea : No reports of dysuria or retention Neurovascular: No reports of generalized weakness All medications have been reviewed PHYSICAL EXAMINATION: GENERAL: The patient is alert and oriented x4, Well developed, elderly appearing HEENT: Pupils are round and equally reacting to light. EOMI. no scleral icterus. No conjunctival pallor. Normocephalic, atraumatic. No pharyngeal erythema. No thyromegaly. CARDIOVASCULAR: S1 and S2 muffled PULMONARY: diminished breath sounds bilaterally with no wheezing or rhonchi noted. ABDOMEN: soft. Nontender on exam. obese. non-distended, normoactive bowel sounds. No palpable organomegaly. MUSCULOSKELETAL: No joint swelling or deformity. EXTREMITIES: No cyanosis, clubbing, or pedal edema. NEUROLOGICAL: Gross neurological examination did not reveal any focal deficits. Diffuse weakness SKIN: No rashes. Assessment: Chest pain, possible unstable angina, status post stress testing which was abnormal, cardiology recommending cardiac catheterization Elevated WBC, possibly reactive Chronic changes on chest x-ray History of coronary artery disease with previous stenting Diabetes mellitus, type II Hypertension Hyperlipidemia Sleep apnea with a CPAP Chronic hypoxic respiratory failure, uses oxygen outpatient History of essential tremors GI prophylaxis DVT prophylaxis Full code Plan: Recommend to continue with current medications and management with cardiology following. Patient scheduled to undergo stress testing which was abnormal recommend monitoring overnight and possible cardiac catheterization after cardiology evaluation Continue telemetry monitoring at this time Follow-up on repeat labs with CBC, BMP and monitor electrolytes and kidney functions. Monitor white count. Patient is afebrile with no reports of painful urination, shortness of breath, or cough Encouraged increase activity as tolerated Due to multiple complex medical issues, overall prognosis is guarded The impression and plan of care has been dictated by Heather Betancur, nurse practitioner as directed. Dr. Fortino MD I have performed a history and examination and MDM of this patient, discussed the same with the dictator, and agree with the dictator's assessment and plan as written ,documented as a scribe. Based on total visit time, I have performed more than 50% of the visit. Any additional findings or plans will be noted. Objective - Vital Signs Vital signs: Vital Signs Temp 98.5 F 05/27/24 14:33 Pulse 61 05/27/24 14:33 Resp 16 05/27/24 14:33 BP 95/59 05/27/24 14:33 Pulse Ox 98 05/27/24 14:33 FiO2 Intake & Output 05/26/24 05/27/24 05/27/24 18:59 06:59 18:59 Weight 79.832 kg 79.832 kg Other: # Voids 2 3 - Labs CBC & Chem 7: 05/28/24 05:13 05/28/24 05:13 Labs: Abnormal Lab Results - Last 24 Hours (Table) 05/26/24 05/26/24 05/26/24 Range/Units 15:33 15:33 15:33 WBC 17.2 H (3.8-10.6) k/uL RBC 5.71 H (3.80-5.40) m/uL Hct 49.9 H (34.0-46.0) % MCHC 30.9 L (31.0-37.0) g/dL RDW 16.1 H (11.5-15.5) % Immature Gran # (0.00-0.04) X 10*3/uL Neutrophils # 13.0 H (1.3-7.7) k/uL Monocytes # (0.20-1.00) X 10*3/uL Eosinophils # (0.04-0.35) X 10*3/uL APTT 19.6 L (22.0-30.0) sec D-Dimer 1.35 H (<0.60) mg/L FEU Chloride 97 L (98-107) mmol/L BUN 37 H (7-17) mg/dL Creatinine 1.54 H (0.52-1.04) mg/dL Est GFR (CKD-EPI) (>=60) Glucose 115 H (74-99) mg/dL Magnesium 2.5 H (1.6-2.3) mg/dL ALT 46 H (4-34) U/L Triglycerides (0.00-149.00) mg/dL HDL Cholesterol (40.00-60.00) mg/dL 05/27/24 05/27/24 Range/Units 05:10 05:10 WBC 16.56 H (3.8-10.6) k/uL RBC (3.80-5.40) m/uL Hct (34.0-46.0) % MCHC 30.5 L (31.0-37.0) g/dL RDW 17.3 H (11.5-15.5) % Immature Gran # 0.18 H (0.00-0.04) X 10*3/uL Neutrophils # 12.03 H (1.3-7.7) k/uL Monocytes # 1.52 H (0.20-1.00) X 10*3/uL Eosinophils # 0.63 H (0.04-0.35) X 10*3/uL APTT (22.0-30.0) sec D-Dimer (<0.60) mg/L FEU Chloride (98-107) mmol/L BUN 28.7 H (7-17) mg/dL Creatinine (0.52-1.04) mg/dL Est GFR (CKD-EPI) 36 L (>=60) Glucose 136 H (74-99) mg/dL Magnesium (1.6-2.3) mg/dL ALT (4-34) U/L Triglycerides 196.00 H (0.00-149.00) mg/dL HDL Cholesterol 38.80 L (40.00-60.00) mg/dL
[2024-05-28] MEDS: SODIUM CHLORIDE 0.9% 1,000 ML in EMPTY BAG 1 BAG IV SCH (10:35)
--- NOTE | 2024-05-29 06:20 | P.PN ---
Subjective Progress Note Date: 05/28/24 This is a pleasant 78-year-old female who follows with Dr. Anthony in the outpatient setting presented with chest pain being closely monitored by cardiology. Patient has a significant past medical history of coronary artery disease with previous stenting reported feeling chest discomfort that she had felt previously and came to the hospital for further evaluation. Patient is scheduled to undergo stress testing today and per cardiology if negative patient may be discharged home. Patient reports she has no further chest pain or palpitations or feeling dizzy or lightheaded. Patient reports she chronically wears oxygen outpatient and has 1 to 2 L on currently. Patient is afebrile denies chest pain or shortness of breath. Will await stress testing results. 05/28/2024 Patient is seen in follow-up this morning being followed by cardiology was tentatively scheduled for cardiac catheterization although there is no staffing or Technical Service Representative availability at this time and is being scheduled for 05/29/2024. Stress testing from yesterday was abnormal and cardiology would like to undergo cardiac catheterization. Patient is agreeable. Will await report and discussed with cardiology regarding discharge planning. Patient denies chest pain at this time, no reported shortness of breath or palpitations. Review of systems: Constitutional: No reports of fatigue, fever, or chills Cardiovascular: No reports of chest pain or palpitations Respiratory: No reports of shortness of breath or cough GI: No reports of nausea, no reports of vomiting, no diarrhea : No reports of dysuria or retention Neurovascular: No reports of generalized weakness All medications have been reviewed PHYSICAL EXAMINATION: GENERAL: The patient is alert and oriented x4, Well developed, elderly appearing HEENT: Pupils are round and equally reacting to light. EOMI. no scleral icterus. No conjunctival pallor. Normocephalic, atraumatic. No pharyngeal erythema. No thyromegaly. CARDIOVASCULAR: S1 and S2 muffled PULMONARY: diminished breath sounds bilaterally with no wheezing or rhonchi noted. ABDOMEN: soft. Nontender on exam. obese. non-distended, normoactive bowel sounds. No palpable organomegaly. MUSCULOSKELETAL: No joint swelling or deformity. EXTREMITIES: No cyanosis, clubbing, or pedal edema. NEUROLOGICAL: Gross neurological examination did not reveal any focal deficits. Diffuse weakness SKIN: No rashes. Assessment: Chest pain, possible unstable angina, status post stress testing which was ab normal, cardiology recommending cardiac catheterization Elevated WBC, possibly reactive Chronic changes on chest x-ray History of coronary artery disease with previous stenting Diabetes mellitus, type II Hypertension Hyperlipidemia Sleep apnea with a CPAP Chronic hypoxic respiratory failure, uses oxygen outpatient History of essential tremors GI prophylaxis DVT prophylaxis Full code Plan: Recommend to continue with current medications and management with cardiology following. Patient scheduled to undergo stress testing which was abnormal recommend monitoring overnight and was tentatively scheduled for cardiac catheterization today although no availability at this time and will undergo cat heterization on 05/29/2024. Will await report and cardiology clearance. Continue telemetry monitoring at this time Follow-up on repeat labs with CBC, BMP and monitor electrolytes and kidney functions. Monitor white count. Patient is afebrile with no reports of painful urination, shortness of breath, or cough Encouraged increase activity as tolerated Due to multiple complex medical issues, overall prognosis is guarded Possible discharge planning in the next 24 to 48 hours once cleared by cardio logy The impression and plan of care has been dictated by Heather Betancur nurse pract itioner as directed. Dr. Fortino MD I have performed a history and examination and MDM of this patient, discussed the same with the dictator, and agree with the dictator's assessment and plan as written ,documented as a scribe. Based on total visit time, I have performed more than 50% of the visit. Any additional findings or plans will be noted. Objective - Vital Signs Vital signs: Vital Signs Temp 97.4 F L 05/28/24 07:10 Pulse 62 05/28/24 09:08 Resp 18 05/28/24 07:10 BP 118/67 05/28/24 09:08 Pulse Ox 95 05/28/24 07:44 FiO2 Intake & Output 05/27/24 05/28/24 05/28/24 18:59 06:59 18:59 Other: # Voids 3 2 - Labs CBC & Chem 7: 05/28/24 05:13 05/28/24 05:13 Labs: Abnormal Lab Results - Last 24 Hours (Table) 05/27/24 05/28/24 05/28/24 Range/Units 05:10 05:13 05:13 WBC 13.99 H (4.50-10.00) X 10*3/uL Hgb 11.9 L (12.0-15.0) g/dL MCHC 30.6 L (32.0-37.0) g/dL RDW 17.1 H (11.5-14.5) % Immature Gran # 0.18 H 0.12 H (0.00-0.04) X 10*3/uL Neutrophils # 12.03 H 9.78 H (1.80-7.70) X 10*3/uL Monocytes # 1.52 H 1.52 H (0.20-1.00) X 10*3/uL Eosinophils # 0.63 H 0.65 H (0.04-0.35) X 10*3/uL Est GFR (CKD-EPI) 42 L (>=60) Glucose 129 H (70-110) mg/dL Calcium 8.0 L (8.7-10.3) mg/dL
[2024-05-29] MEDS: ASPIRIN 81 MG PO SCH (06:30)
[2024-05-29] MEDS: IV FLUID CONTINUATION 1,000 ML IV ONE ×2 (07:10→09:21)
[2024-05-29] MEDS: LIDOCAINE 1% INJ 10MG/ML (20 ML MDV) SQ ONE (07:16)
[2024-05-29] MEDS: fentaNYL (PF) 50 MCG/ML 2 ML AMP IVP ONE (07:16)
[2024-05-29] MEDS: MIDAZOLAM 2 MG/2 ML VIAL IVP ONE ×2 (07:16→09:44)
[2024-05-29] MEDS: VERAPAMIL SYRINGE (5 MG/10 ML) INTRAARTER ONE ×2 (07:18→09:50)
[2024-05-29] MEDS: HEPARIN SODIUM,PORCINE (1 ML) 2,500 UNIT in SODIUM CHLORIDE 0.9% 250 ML IRRIGATION PRN (07:25)
[2024-05-29] MEDS: HEPARIN SODIUM,PORCINE 10,000 UNIT in SODIUM CHLORIDE 0.9% 1,000 ML IRRIGATION PRN (07:25)
[2024-05-29] MEDS: HEPARIN SODIUM 1,000 UN/ML (10ML VL) IV ONE (07:29)
[2024-05-29] MEDS: IOPAMIDOL-370 100ML BTL INJ ONE ×3 (07:43→10:48)
[2024-05-29 08:36] LABS: Basophils # (A) 0.05 X 10*3/uL (0.00-0.10); Basophils % (A) 0.4 %; Eosinophils # (A) 0.58 X 10*3/uL (0.04-0.35); Eosinophils % (A) 4.5 %; HCT 37.7 % (37.2-46.3); HGB 11.7 g/dL (12.0-15.0); Lymphocytes # (A) 1.83 X 10*3/uL (0.90-5.00); Lymphocytes % (A) 14.3 %; MCH 27.3 pg (27.0-32.0); MCV 87.9 FL (80.0-97.0); Mean Platelet Volume 11.7 FL (9.5-12.2); Monocytes # (A) 1.59 X 10*3/uL (0.20-1.00); Monocytes % (A) 12.4 %; NRBC Per 100 WBC 0 X 10*3/uL (0.00-0.01); Neutrophils # (A) 8.66 X 10*3/uL (1.80-7.70); Neutrophils % (A) 67.8 %; Platelet Count 212 X 10*3/uL (140-440); RBC 4.29 X 10*6/uL (4.10-5.20); RDW 17.2 % (11.5-14.5); WBC 12.79 X 10*3/uL (4.50-10.00)
[2024-05-29 08:51] LABS: BUN/Creat Ratio 12.79 Ratio (12.00-20.00); Blood Urea Nitrogen 17.9 mg/dL (9.0-27.0); Calcium 8.2 mg/dL (8.7-10.3); Carbon Dioxide 30.8 mmol/L (21.6-31.8); Chloride 103 mmol/L (96-109); Glucose 141 mg/dL (70-110); Potassium 4.3 mmol/L (3.5-5.5); Sodium 138 mmol/L (135-145)
--- NOTE | 2024-05-29 08:56 | CC ---
CARDIAC CATHETERIZATION REPORT INDICATIONS: Chest pain with abnormal stress test in a patient with known CAD status post prior angioplasty. PROCEDURE NOTE: After obtaining informed consent, left heart catheterization and coronary angiogram were performed via the right radial artery using standard Venita catheters. The patient tolerated the procedure well without any obvious immediate complications. The patient received moderate conscious sedation. Total sedation time was 18 minutes. Right radial artery access was obtained using Seldinger technique. A 6-Slovenian sheath was placed. Catheters and wires were floated into the ascending aorta under fluoroscopic guidance. The patient received verapamil and heparin per protocol. FINDINGS: 1. Hemodynamics: a.Left ventricular end-diastolic pressure is mm. There is no significant gradient across the aortic valve. 2. Left ventriculogram: Left ventriculogram was not performed. 3. Angiographic data: a.Right coronary artery: Right coronary artery is a large dominant vessel and it shows a 90% stenosis in the proximal portion. b.Left main coronary artery appears calcified but is free of significant stenosis. It divides into left anterior descending coronary artery and circumflex coronary artery. c.LAD was previously stented and there is a moderate in-stent restenoses. d.Circumflex coronary artery and the branches while they calcified are free of significant stenosis. CONCLUSIONS: 90% stenosis involving the large dominant right coronary artery in-stent restenosis involving LAD stent. PLAN: Dr. Sotomayor, the on-call storage brine worker, reviewed angiographic data and he will proceed with angioplasty of the right coronary artery and will perform IFR of the LAD. MMODL / IJN: [id number] /
[2024-05-29] MEDS: hydrALAZINE HCL 20 MG/ML 1 ML VIAL IVP ONE (10:13)
[2024-05-29] MEDS: NITROGLYCERIN 1000MCG/10ML SYRINGE INTRACORON ONE (10:21)
[2024-05-29] MEDS ORDERED: ATROPINE SULFATE 0.1 MG/ML 10ML SYRINGE IV PRN (10:40)
[2024-05-29] MEDS ORDERED: RX INFO: IV CONTRAST WAS GIVEN 1 EACH MISC MISCELLANE PRN (10:40)
[2024-05-29] MEDS ORDERED: MAG HYDROX/AL HYDROX/SIMETH 30 ML CUP PO PRN (10:40)
[2024-05-29] MEDS ORDERED: ZOLPIDEM 5 MG TAB PO PRN (10:40)
[2024-05-29] MEDS ORDERED: NITROGLYCERIN SL TABS 0.4 MG TAB SUBLINGUAL PRN (10:40)
--- NOTE | 2024-05-29 10:43 | P.PCN ---
Date of Procedure: 05/29/24 Operative Findings: PERCUTANEOUS CORONARY INTERVENTION Performing physician Av Sotomayor M.D. Procedure Performed: 1. Successful stenting of the proximal and mid RCA using 4.0 x 28 and 3.0 x 18 Xience drug-eluting stent with an excellent angiographic results. 2. Adjunctive use of IVUS and lithotripsy balloon Indication: Symptomatic 78-year-old female patient with severe CAD involving the RCA documented on heart catheterization was performed. Approach: Right radial art Complications: None Level of Sedation: Moderate with a sedation length of 46 minutes Procedure Discussion: After obtaining informed consent and after diagnostic heart catheterization was performed. The patient was brought back to the cardiac matlab developer. Subsequently I did start anticoagulation using heparin. The patient was already on Plavix. Continuous ACT monitoring was performed. Subsequently I did engage using JR4 guiding catheter. I did wired using a run-through wire. IVUS was performed and showed a diameter around 4 mm proximal. Predilatation was performed using 2.5 mm balloon and subsequently 3 mm balloon and then I did shockwave balloon using 4 mm. After that I did predilated again using 4 mm NC balloon before I deployed 4.0 x 28 mm stent which was postdilated using 4.5 mm NC balloon with an excel lent angiographic results. For the lesion in the mid RCA I did predilated using 2.5 mm balloon before I deployed 3.0 x 18 mm which was postdilated using 3.25 mm NC balloon was final angiogram showing good angiographic result Postprocedure Management: 1. IFR of the LAD 2. Dual antiplatelet therapy using aspirin and Plavix for 6-month 3. Follow-up with the patient
[2024-05-29] MEDS: SODIUM CHLORIDE 0.9% 1,000 ML in EMPTY BAG 1 BAG IV SCH (12:10)
[2024-05-29 15:37] VITALS: BMI 29.2
[2024-05-30 03:39] VITALS: RESP 17
--- NOTE | 2024-05-30 06:04 | P.PN ---
Subjective Progress Note Date: 05/29/24 This is a pleasant 78-year-old female who follows with Dr. Anthony in the outpatient setting presented with chest pain being closely monitored by cardiology. Patient has a significant past medical history of coronary artery disease with previous stenting reported feeling chest discomfort that she had felt previously and came to the hospital for further evaluation. Patient is scheduled to undergo stress testing today and per cardiology if negative patient may be discharged home. Patient reports she has no further chest pain or palpitations or feeling dizzy or lightheaded. Patient reports she chronically wears oxygen outpatient and has 1 to 2 L on currently. Patient is afebrile denies chest pain or shortness of breath. Will await stress testing results. 05/28/2024 Patient is seen in follow-up this morning being followed by cardiology was tentatively scheduled for cardiac catheterization although there is no staffing or [facility] availability at this time and is being scheduled for 05/29/2024. Stress testing from yesterday was abnormal and cardiology would like to undergo cardiac catheterization. Patient is agreeable. Will await report and discussed with cardiology regarding discharge planning. Patient denies chest pain at this time, no reported shortness of breath or palpitations. 05/29/2024 Patient is seen in follow-up this morning just got back from [facility] with cardiology following status post angioplasty to the RCA and IFR to LAD and continues on cardiac catheterization post protocol. Patient is on 1 to 2 L via nasal cannula and reports she wears it outpatient. Patient denies any significant chest pain or shortness of breath. Patient is afebrile and diet will be resumed. Will continue telemetry monitoring and monitor overnight and discussed with cardiology regarding possible discharge in the next 24 hours Review of systems: Constitutional: No reports of fatigue, fever, or chills Cardiovascular: No reports of chest pain or palpitations Respiratory: No reports of shortness of breath or cough GI: No reports of nausea, no reports of vomiting, no diarrhea : No reports of dysuria or retention Neurovascular: No reports of generalized weakness All medications have been reviewed PHYSICAL EXAMINATION: GENERAL: The patient is alert and oriented x4, Well developed, elderly appearing HEENT: Pupils are round and equally reacting to light. EOMI. no scleral icterus. No conjunctival pallor. Normocephalic, atraumatic. No pharyngeal erythema. No thyromegaly. CARDIOVASCULAR: S1 and S2 muffled PULMONARY: diminished breath sounds bilaterally with no wheezing or rhonchi noted. ABDOMEN: soft. Nontender on exam. obese. non-distended, normoactive bowel sounds. No palpable organomegaly. MUSCULOSKELETAL: No joint swelling or deformity. EXTREMITIES: No cyanosis, clubbing, or pedal edema. NEUROLOGICAL: Gross neurological examination did not reveal any focal deficits. Diffuse weakness SKIN: No rashes. Assessment: Chest pain, status post stress testing which was abnormal, underwent cardiac catheterization with angioplasty to the RCA and IFR to LAD 05/29/2024 Elevated WBC, possibly reactive, trending down Chronic changes on chest x-ray History of coronary artery disease with previous stenting Diabetes mellitus, type II Hypertension Hyperlipidemia Sleep apnea with a CPAP Chronic hypoxic respiratory failure, uses oxygen outpatient History of essential tremors GI prophylaxis DVT prophylaxis Full code Plan: Recommend to continue with current medications and management with cardiology following. Patient underwent stress testing which was abnormal and cardiology recommended monitoring overnight and underwent cardiac catheterization this morning with RCA angioplasty and IFR to the LAD with Dr. Sotomayor. Continue cardiac catheterization protocol, wrist Continue telemetry monitoring at this time Encouraged increase activity as tolerated Possible discharge planning in the next 24 to 48 hours once cleared by cardiology The impression and plan of care has been dictated by Heather Betancur, nurse practitioner as directed. Dr. Mirna MD I have performed a history and examination and MDM of this patient, discussed the same with the dictator, and agree with the dictator's assessment and plan as written ,documented as a scribe. Based on total visit time, I have performed more than 50% of the visit. Any additional findings or plans will be noted. Objective - Vital Signs Vital signs: Vital Signs Temp 97.9 F 05/29/24 06:25 Pulse 54 L 05/29/24 08:48 Resp 16 05/29/24 08:48 BP 140/62 05/29/24 08:48 Pulse Ox 98 05/29/24 08:48 FiO2 Intake & Output 05/28/24 05/29/24 05/29/24 18:59 06:59 18:59 Intake Total 150 Balance 150 Intake: IV 150 Other: # Voids 5 1 # Bowel Movements 0 - Labs CBC & Chem 7: 05/29/24 04:00 05/29/24 04:00 Labs: Abnormal Lab Results - Last 24 Hours (Table) 05/29/24 05/29/24 Range/Units 04:00 04:00 WBC 12.79 H (4.50-10.00) X 10*3/uL Hgb 11.7 L (12.0-15.0) g/dL MCHC 31.0 L (32.0-37.0) g/dL RDW 17.2 H (11.5-14.5) % Immature Gran # 0.08 H (0.00-0.04) X 10*3/uL Neutrophils # 8.66 H (1.80-7.70) X 10*3/uL Monocytes # 1.59 H (0.20-1.00) X 10*3/uL Eosinophils # 0.58 H (0.04-0.35) X 10*3/uL Est GFR (CKD-EPI) 39 L (>=60) Glucose 141 H (70-110) mg/dL Calcium 8.2 L (8.7-10.3) mg/dL
[2024-05-30 07:40] VITALS: BP 114/68; PULSE 52; TEMP 98.2
[2024-05-30 08:15] LABS: Basophils # (A) 0.06 X 10*3/uL (0.00-0.10); Basophils % (A) 0.5 %; Eosinophils # (A) 0.62 X 10*3/uL (0.04-0.35); Eosinophils % (A) 5.2 %; HCT 37.5 % (37.2-46.3); HGB 11.5 g/dL (12.0-15.0); Lymphocytes # (A) 1.81 X 10*3/uL (0.90-5.00); Lymphocytes % (A) 15.2 %; MCH 27.4 pg (27.0-32.0); MCHC 30.7 g/dL (32.0-37.0); MCV 89.5 FL (80.0-97.0); Mean Platelet Volume 11.3 FL (9.5-12.2); Monocytes # (A) 1.17 X 10*3/uL (0.20-1.00); Monocytes % (A) 9.9 %; NRBC Per 100 WBC 0 X 10*3/uL (0.00-0.01); Neutrophils # (A) 8.15 X 10*3/uL (1.80-7.70); Neutrophils % (A) 68.7 %; Platelet Count 198 X 10*3/uL (140-440); RBC 4.19 X 10*6/uL (4.10-5.20); RDW 17.2 % (11.5-14.5); WBC 11.87 X 10*3/uL (4.50-10.00)
[2024-05-30 08:20] LABS: BUN/Creat Ratio 11.17 Ratio (12.00-20.00); Blood Urea Nitrogen 13.4 mg/dL (9.0-27.0); Calcium 8.1 mg/dL (8.7-10.3); Carbon Dioxide 27.5 mmol/L (21.6-31.8); Chloride 100 mmol/L (96-109); Glucose 122 mg/dL (70-110); Potassium 4.2 mmol/L (3.5-5.5); Sodium 136 mmol/L (135-145)
--- NOTE | 2024-05-30 11:58 | P.PN ---
Subjective HISTORY OF PRESENT ILLNESS: This is a 78-year-old female with a past medical history significant for coronary artery disease with previous stenting, hypertension, hyperlipidemia, peripheral arterial disease, and diabetes. Patient follows in the office with Dr. Kc. We have been asked to see the patient in consultation for chest pain. Patient examined at the bedside. Patient states yesterday she was at Dr. Wheeler office for an appointment. She states after her appointment she was walking out the office when she began to have chest discomfort. She states that the pain was on both sides of her her chest and went into her neck and jaw. She states the pain lasted for approximately 20 minutes. Since that episode, the patient has denied any further episodes of chest pain or pressure. DIAGNOSTICS: - EKG reveals sinus mechanism with nonspecific ST-T wave changes. - Chest xray chronic changes without acute pulmonary process - Chest CTA: Negative for pulmonary embolism. No suspicious new acute pulmonary process. - Laboratory data: WBC 17.2. Hemoglobin 15.4. Platelet count 291. D-dimer 1.35. Sodium 137. Potassium 5.1. BUN 37. Creatinine 1.54 troponin negative x 3. - Current home cardiac medications include metoprolol tartrate 50 mg twice a day, losartan 50 mg daily, Lasix 40 mg daily, Jardiance 10 mg daily, Plavix 75 mg daily, Lipitor 40 mg daily, aspirin 81 mg daily - Most recent echocardiogram obtained in May 2022 revealed ejection fraction 55%, trace to mild MR, trace to mild TR - Cardiac catheterization history: 2009 revealing 80% mid LAD and 60% distal RCA. Patient underwent stenting of the mid LAD -Patient underwent Lexiscan stress test in February 2021 revealing normal study with mild fixed defect involving the mid anterior wall secondary to breast attenuation. 05/28/2024 Patient examined this morning at the bedside. Patient denies any further episodes of chest pain or pressure. She denies shortness of breath. She underwent dobutamine stress echo yesterday which was abnormal. Vital signs are stable. Echocardiogram this morning revealed ejection fraction 60 to 65% with no pericardial effusion and no significant valvular abnormalities noted. 05/30/2024 Patient examined this morning at the bedside. Patient underwent cardiac catheterization yesterday with Dr. Sotomayor with stenting of the proximal and mid RCA. Patient denies any further episodes of chest pain or pressure. She denies shortness of breath. Vital signs are stable. PHYSICAL EXAM: VITAL SIGNS: Reviewed. GENERAL: Well-developed in no acute distress. HEENT: Head is normocephalic. Pupils are equal, round. Sclerae anicteric. Mucous membranes of the mouth are moist. Neck supple. No JVD or thyromegaly LUNGS: Respirations even and unlabored. Lungs essentially clear to auscultation bilaterally. HEART: Regular rate and rhythm. S1 and S2 heard. ABDOMEN: Soft. Nondistended. Nontender. EXTREMITIES: Normal range of motion. No clubbing or cyanosis. Peripheral pulses intact. No lower extremity edema NEUROLOGIC: Awake and alert. Oriented x 3. ASSESSMENT: Chest pain, s/p abnormal dobutamine stress echo Leukocytosis Sinus bradycardia Coronary artery disease with previous stenting of the mid LAD, 01/2010 Peripheral arterial disease with previous balloon angioplasty of left SFA, 12/2022 Hypertension Hyperlipidemia Diabetes PLAN: Continue dual antiplatelet therapy with aspirin and Plavix for 6 months Continue high intensity statin. LDL goal less than 70 Patient will undergo outpatient IFR of the LAD Patient may be discharged home today from a cardiac standpoint and follow-up on an outpatient basis. Nurse practitioner note has been reviewed by physician. Signing provider agrees with the documented findings, assessment, and plan of care documented by BROKERAGE BRANCH MANAGER as a scribe. Objective - Vital Signs Vital signs: Vital Signs Temp 98.2 F 05/30/24 07:40 Pulse 52 L 05/30/24 07:40 Resp 17 05/30/24 07:40 BP 114/68 05/30/24 07:40 Pulse Ox 90 L 05/30/24 08:36 FiO2 21 05/30/24 08:36 Intake & Output 05/29/24 05/30/24 05/30/24 18:59 06:59 18:59 Intake Total 1566 Balance 1566 Weight 79.832 kg Intake: IV 450 Intake, IV Titration 640 Amount Sodium Chloride 0.9% 1, 640 000 ml In Empty Bag 1 bag @ 75 mls/hr IV .[id number] KAYCEE Rx#:[id number] Oral 476 Other: Voiding Method Toilet # Voids 1 1 - Labs CBC & Chem 7: 05/30/24 04:50 05/30/24 04:50 Labs: Abnormal Lab Results - Last 24 Hours (Table) 05/30/24 05/30/24 Range/Units 04:50 04:50 WBC 11.87 H (4.50-10.00) X 10*3/uL Hgb 11.5 L (12.0-15.0) g/dL MCHC 30.7 L (32.0-37.0) g/dL RDW 17.2 H (11.5-14.5) % Immature Gran # 0.06 H (0.00-0.04) X 10*3/uL Neutrophils # 8.15 H (1.80-7.70) X 10*3/uL Monocytes # 1.17 H (0.20-1.00) X 10*3/uL Eosinophils # 0.62 H (0.04-0.35) X 10*3/uL Est GFR (CKD-EPI) 47 L (>=60) BUN/Creatinine Ratio 11.17 L (12.00-20.00) Ratio Glucose 122 H (70-110) mg/dL Calcium 8.1 L (8.7-10.3) mg/dL
[2024-06-19] MEDS ORDERED: ERGOCALCIFEROL 1,250 MCG (50,000 IU) CAPSULE PO SCH (09:00)
== END 2024-05-30 12:16 | disposition home or self-care (01) | DRG 324 ==
LOC: EC 15:11 → 6NMEDSUR 17:27 → OBSVTOIN 17:28 → 6NMEDSUR 18:21
PROVIDERS: ADMIT Hospitalist; ATTEND Hospitalist
PROC: B2111ZZ Fluoroscopy of Multiple Coronary Arteries using Low Osmolar Contrast (ICD-10-PCS; 2024-05-29)
PROC: B240ZZ3 Ultrasonography of Single Coronary Artery, Intravascular (ICD-10-PCS; 2024-05-29)
PROC: 02F03ZZ Fragmentation in Coronary Artery, One Artery, Percutaneous Approach (ICD-10-PCS; principal; 2024-05-29 07:30)
PROC: 027034Z Dilation of Coronary Artery, One Artery with Drug-eluting Intraluminal Device, Percutaneous Approach (ICD-10-PCS; 2024-05-29 09:30)
PROC: 4A023N7 Measurement of Cardiac Sampling and Pressure, Left Heart, Percutaneous Approach (ICD-10-PCS; 2024-05-29 09:30)
DX: I25.110 Atherosclerotic heart disease of native coronary artery with unstable angina pectoris (principal); J96.11 Chronic respiratory failure with hypoxia; Z99.81 Dependence on supplemental oxygen; E11.51 Type 2 diabetes mellitus with diabetic peripheral angiopathy without gangrene; I10 Essential (primary) hypertension; Z95.820 Peripheral vascular angioplasty status with implants and grafts; F32.A Depression, unspecified; T82.855A Stenosis of coronary artery stent, initial encounter; Y83.1 Surgical operation with implant of artificial internal device as the cause of abnormal reaction of the patient, or of later complication, without mention of misadventure at the time of the procedure; R00.1 Bradycardia, unspecified; G47.30 Sleep apnea, unspecified; E78.5 Hyperlipidemia, unspecified; Z79.82 Long term (current) use of aspirin; Z79.84 Long term (current) use of oral hypoglycemic drugs; Z95.5 Presence of coronary angioplasty implant and graft; Z79.02 Long term (current) use of antithrombotics/antiplatelets; Z79.899 Other long term (current) drug therapy; Z87.891 Personal history of nicotine dependence; Z82.49 Family history of ischemic heart disease and other diseases of the circulatory system
CPT/HCPCS: 36415; 71046; 71275; 80048; 80053; 80061; 83735; 84484; 85025; 85379; 85610; 85730; 87636; 92972; 92978; 93005; 93306; 93351; 93458; 94640; 94760; 96360; 96361; 99285

== ENCOUNTER → 2024-06-12 | Outpatient (CLI) | payer MEDICARE ==
[2024-06-12 15:03] LABS: HCT 42.6 % (37.2-46.3); HGB 12.6 g/dL (12.0-15.0); MCH 26.6 pg (27.0-32.0); MCHC 29.6 g/dL (32.0-37.0); MCV 90.1 FL (80.0-97.0); Mean Platelet Volume 11.1 FL (9.5-12.2); NRBC Per 100 WBC 0 X 10*3/uL (0.00-0.01); Platelet Count 288 X 10*3/uL (140-440); RBC 4.73 X 10*6/uL (4.10-5.20); RDW 17.4 % (11.5-14.5)
[2024-06-12 20:14] LABS: BUN/Creat Ratio 12.77 Ratio (12.00-20.00); Blood Urea Nitrogen 16.6 mg/dL (9.0-27.0); Calcium 8.6 mg/dL (8.7-10.3); Carbon Dioxide 27.2 mmol/L (21.6-31.8); Chloride 99 mmol/L (96-109); Glucose 163 mg/dL (70-110); Potassium 4.9 mmol/L (3.5-5.5); Sodium 139 mmol/L (135-145)
== END | disposition home or self-care (01) ==
LOC: LABWHC1 11:16
PROVIDERS: ATTEND Internal Medicine Cardiovascular Disease
DX: I73.9 Peripheral vascular disease, unspecified (principal)
CPT/HCPCS: 36415; 80048; 85027

== ENCOUNTER 2024-06-18 05:48 | Day surgery (SDC) | payer MEDICARE ==
[~2024-06-18 05:48] MED LIST changes: -ASPIRIN 325 MG TAB PO PRN; -HEPARIN SODIUM,PORCINE (1 ML) 2,500 UNIT in SODIUM CHLORIDE 0.9% 250 ML IRRIGATION PRN; -HEPARIN SODIUM,PORCINE 10,000 UNIT in SODIUM CHLORIDE 0.9% 1,000 ML IRRIGATION PRN; +NITROGLYCERIN SL TABS 0.4 MG TAB SUBLINGUAL PRN; -SODIUM CHLORIDE 0.9% 1,000 ML in EMPTY BAG 1 BAG IV ONE
[2024-06-18 06:18] LABS: Glucose,Whole Blood 143 mg/dL (70-110)
[2024-06-18] MEDS: IV FLUID CONTINUATION 1,000 ML IV ONE (06:22)
[2024-06-18] MEDS: CLOPIDOGREL 75 MG TAB PO ONE ×2 (06:31→09:30)
[2024-06-18] MEDS: MIDAZOLAM 2 MG/2 ML VIAL IVP ONE (08:19)
[2024-06-18] MEDS: fentaNYL (PF) 50 MCG/ML 2 ML AMP IVP ONE (08:19)
[2024-06-18] MEDS: LIDOCAINE 1% INJ 10MG/ML (20 ML MDV) SQ ONE (08:21)
[2024-06-18] MEDS: VERAPAMIL SYRINGE (5 MG/10 ML) INTRAARTER ONE (08:22)
[2024-06-18] MEDS: HEPARIN SODIUM 1,000 UN/ML (10ML VL) IV ONE (08:26)
[2024-06-18] MEDS: HEPARIN SODIUM,PORCINE 10,000 UNIT in SODIUM CHLORIDE 0.9% 1,000 ML IRRIGATION PRN (08:28)
[2024-06-18] MEDS: HEPARIN SODIUM,PORCINE (1 ML) 2,500 UNIT in SODIUM CHLORIDE 0.9% 250 ML IRRIGATION PRN (08:29)
[2024-06-18] MEDS: NITROGLYCERIN 1000MCG/10ML SYRINGE INTRACORON ONE (09:06)
[2024-06-18] MEDS: IOPAMIDOL-370 100ML BTL INJ ONE (09:31)
[2024-06-18] MEDS ORDERED: NITROGLYCERIN SL TABS 0.4 MG TAB SUBLINGUAL PRN (09:32)
[2024-06-18] MEDS ORDERED: ATROPINE SULFATE 0.1 MG/ML 10ML SYRINGE IV PRN (09:33)
[2024-06-18] MEDS ORDERED: RX INFO: IV CONTRAST WAS GIVEN 1 EACH MISC MISCELLANE PRN (09:33)
[2024-06-18] MEDS ORDERED: MAG HYDROX/AL HYDROX/SIMETH 30 ML CUP PO PRN (09:33)
[2024-06-18] MEDS ORDERED: ZOLPIDEM 5 MG TAB PO PRN (09:33)
--- NOTE | 2024-06-18 09:38 | P.PCN ---
Date of Procedure: 06/18/24 Operative Findings: PERCUTANEOUS CORONARY INTERVENTION Performing physician Av Sotomayor M.D. Procedure Performed: 1. Successful balloon angioplasty for severe in-stent restenosis using 3.0 mm balloon with an excellent angiographic result 2. Adjunctive use of IVUS and IFR and lithotripsy balloon along with left coronary angiogram 3. Ultrasound-guided access of the right radial artery Indication: Symptomatic 78-year-old female patient who was found to have intermediate to severe disease which seems to be in-stent restenosis of the proximal to mid LAD. Approach: Right radial art Complications: None Level of Sedation: Moderate with a sedation length of 30 minutes Procedure Discussion: Please refer to prior heart catheterization was performed few weeks ago. The right radial artery was cannulated using micropuncture technique under ultrasound guidance a micropuncture wire passed easily then I placed a 6 Nicaraguan 11 cm sheath at the right radial artery and give the patient 2 mg of verapamil intra-arterial and 4000 units of heparin IV with continuous ACT monitoring. Subsequently I did advance JL 3.5 guiding catheter to the aortic root. After zeroing the Dobler wire and equalizing between the Dobler wire and guiding catheter the left main was engaged and subsequently the Dobler wire was advanced distal to the lesion in the proximal LAD. iFR was performed and came in and 0.84. I decided to intervene on the LAD. After the beginning of the intervention we lost the wire position and the guide came out and for that reason I decided to go using 3.5 short tip guiding catheter and I did wire the LAD using the same run-through wire. I did IVUS which revealed a diameter around 3 mm very calcified vessel. Balloon angioplasty initially using 3 mm noncompliant balloon was performed and subsequently 3 mm shockwave balloon but the shockwave balloon ruptured and I went back to stent using 2.5 mm x 15 mm NC balloon and this balloon angioplasty of the LAD with angiogram showing good angiographic results but there was haziness involving the mid LAD with a haziness appears to be very focal. I did advance regular 2.5 balloon which was semicompliant balloon and I did gentle balloon angioplasty of that lesion with an angiogram was performed showed better results and they gave the patient Aggrastat. The procedure was completed with no complication Postprocedure Management: 1. Dual anti-platelet therapy for at least 4 weeks 2. Aggressive cholesterol control 3. The risks factors modification
--- NOTE | 2024-06-18 09:42 | P.PCN ---
Date of Procedure: 06/18/24 Operative Findings: AN ABDOMINAL AORTOGRAM AND BILATERAL LOWER EXTREMITIES RUNOFF PERFORMING PHYSICIAN: Av Sotomayor MD PROCEDURE PERFORMED: 1. An abdominal aortogram 2. Bilateral lower extremities runoff INDICATION: Symptomatic 78-year-old female patient with known occlusive PAD COMPLICATION: None LEVEL OF SEDATION: Moderate was sedation length of 30 minutes APPROACH: Right radial art PROCEDURE DESCRIPTION: After obtaining informed consent the patient was brought to the cardiac Scale Assembly Set Up Worker. Regarding access description please refer to prior angioplasty was performed to the LAD. After that I did advance a 4 Marshallese pigtail catheter to the descending aorta all the way to the abdominal aorta. An aortogram with runoff was performed using the 4 Marshallese pigtail catheter and using a power injection interstitial subtraction. The procedure was completed with no complication The procedure was completed and there was no complications. SELECTIVE PERIPHERAL ANGIOGRAM: The abdominal aorta: Appears to be small with no evidence of high-grade stenosis The common iliac arteries: Both common iliac arteries appear to have mild to moderate disease with no evidence of high-grade stenosis except that the left common iliac artery appeared to have an ulcerated plaque The external iliac arteries: Both external iliac arteries appear to be angiographically normal The internal iliac arteries: Both internal iliac arteries appear to be patent The common femoral arteries: The right and left common femoral arteries appear to have mild to moderate disease with no evidence of high-grade stenosis Superficial femoral arteries: Both SFA appeared to be diffusely diseased with high-grade stenosis bilaterally Popliteal arteries: Both popliteal appeared to have mild to moderate disease only Below the knees: Three vessels runoff below the knee bilaterally CONCLUSION: Severe bilateral SFA disease POSTPROCEDURE MANAGEMENT: TIGHT COOPER to be scheduled as a staged procedure
[2024-06-18] MEDS ORDERED: NON FORMULARY DRUG (Fluticasone/Vilanterol [Breo Ellipta 200-25 Mcg Inhaler] 1 EACH Blst.W INHALATION SCH (09:45)
[2024-06-18] MEDS: NITROGLYCERIN SL TABS 0.4 MG TAB SUBLINGUAL PRN (11:00)
--- NOTE | 2024-06-18 11:41 | IR ---
Fluoroscopy History: Fluoroscopy time. Fluoroscopy was provided to the referring clinician. leg pain, 17.6m/26.8DAP rt radial 10 cc [facility], , 06/18/2024 11:39 AM
[2024-06-18] MEDS: EMPTY BAG 1 BAG with SODIUM CHLORIDE 0.9% 1,000 ML IV ONE (13:17)
[2024-06-18] MEDS: ASPIRIN 325 MG TAB PO STA (13:17)
[2024-06-18] MEDS: CLOPIDOGREL 75 MG TAB PO STA (13:18)
[2024-06-18] MEDS: SODIUM CHLORIDE 0.9% 1,000 ML in EMPTY BAG 1 BAG IV SCH (13:18)
[2024-06-18 17:24] LABS: Glucose,Whole Blood 126 mg/dL (70-110)
[2024-06-18] MEDS: SYMBICORT 160-4.5 MCG INHALER INHALATION SCH (19:50)
[2024-06-18 19:55] LABS: Glucose,Whole Blood 188 mg/dL (70-110)
[2024-06-18] MEDS: GABAPENTIN 300 MG CAP PO SCH (21:00)
[2024-06-18] MEDS: METOPROLOL TARTRATE 25 MG TAB PO SCH (21:00)
[2024-06-18] MEDS: ATORVASTATIN 40 MG TAB PO SCH (21:00)
[2024-06-19 05:51] LABS: Glucose,Whole Blood 151 mg/dL (70-110)
[2024-06-19 07:23] VITALS: BP 126/60; PULSE 64; RESP 17; TEMP 98.6
[2024-06-19 07:25] LABS: African American GFR (CKD) 49 (>60 ml/min/1.73 sqM); Non-African American GFR(CKD) 43 (>60 ml/min/1.73 sqM)
--- NOTE | 2024-06-19 08:25 | P.DS ---
Providers Attending physician: Av Sotomayor Consults: 06/18/24 09:33 Consult Physician Routine Consulting Provider: [facility] Consult Reason/Comments: Post Interventional patient Do you want consulting provider notified?: Already Contacted Primary care physician: Anisa [facility] Course: The patient is a pleasant 78-year-old female patient who underwent yesterday PTCA of the LAD and an aortogram with runoff. She was seen and evaluated this morning. 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 Plan - Discharge Summary Discharge Rx Participant: No New Discharge Prescriptions: New Ticagrelor [Brilinta] 90 mg PO BID #180 tab Continue Atorvastatin [Lipitor] 40 mg PO HS Aspirin 81 mg PO DAILY Citalopram Hydrobromide [CeleXA] 40 mg PO DAILY Multivitamins, Thera [Multivitamin (formulary)] 1 tab PO DAILY Furosemide [Lasix] 40 mg PO DAILY Ergocalciferol (Vitamin D2) [Drisdol (50,000 Iu)] 1,250 mcg PO Q30D Empagliflozin [Jardiance] 10 mg PO DAILY Metoprolol Tartrate [Lopressor] 25 mg PO BID #60 tab Nitroglycerin Sl Tabs [Nitrostat] 0.4 mg SUBLINGUAL Q5M PRN #20 tab PRN Reason: Chest Pain Potassium Chloride ER [K-Dur 20] 20 meq PO DAILY Gabapentin [Neurontin] 300 mg PO BID Budesonide/Formoterol Fumarate [Breyna 160-4.5 Mcg Inhaler] 2 puff INHALATION RT-BID Fluticasone/Vilanterol [Breo Ellipta 200-25 Mcg Inhaler] 1 puff INHALATION DIRECTED Discontinued Clopidogrel [Plavix] 75 mg PO DAILY #90 tablet Discharge Medication List Aspirin 81 mg PO DAILY 11/12/14 [History] Atorvastatin [Lipitor] 40 mg PO HS 11/12/14 [History] Citalopram Hydrobromide [CeleXA] 40 mg PO DAILY 01/17/23 [History] Empagliflozin [Jardiance] 10 mg PO DAILY 05/13/24 [History] Ergocalciferol (Vitamin D2) [Drisdol (50,000 Iu)] 1,250 mcg PO Q30D 05/13/24 [History] Furosemide [Lasix] 40 mg PO DAILY 05/13/24 [History] Gabapentin [Neurontin] 300 mg PO BID 05/13/24 [History] Multivitamins, Thera [Multivitamin (formulary)] 1 tab PO DAILY 05/13/24 [History] Potassium Chloride ER [K-Dur 20] 20 meq PO DAILY 05/13/24 [History] Budesonide/Formoterol Fumarate [Breyna 160-4.5 Mcg Inhaler] 2 puff INHALATION RT-BID 05/26/24 [History] Fluticasone/Vilanterol [Breo Ellipta 200-25 Mcg Inhaler] 1 puff INHALATION DIRECTED 05/26/24 [History] Metoprolol Tartrate [Lopressor] 25 mg PO BID #60 tab 05/30/24 [Rx] Nitroglycerin Sl Tabs [Nitrostat] 0.4 mg SUBLINGUAL Q5M PRN #20 tab 05/30/24 [Rx] Ticagrelor [Brilinta] 90 mg PO BID #180 tab 06/19/24 [Rx] Follow up Appointment(s)/Referral(s): Jose Enrique Kc MD [STAFF PHYSICIAN] - 1 Week Patient Instructions/Handouts: Moderate Sedation (DC), Angiogram (DC) Activity/Diet/Wound Care/Special Instructions: NO DRIVING TODAY OR TOMORROW OK TO SHOWER TOMORROW, NO SOAKING NO SWIMMING FOR THREE DAYS TO AVOID RISK OF INFECTION. AVOID PUSHING PULLING LIFTING MORE THAN 10 LBS IF GROIN PUNCTURE OR 5 LBS FOR WRIST PUNCTURE. SIGNS OF INFECTION IE: FEVER, RASH, UNUSUAL DRAINAGE, SWELLING OR HARD KNNOT CONTACT DR OR GO TO ER TO BE EVALUATED. IF PUNCTURE SITE BLEEDS, APPLY FIRM PRESSURE AND GO TO ER. DO NOT DRIVE SELF. CALL 911 IF NEEDED.
[2024-06-19] MEDS: ASPIRIN 81 MG PO SCH (08:33)
[2024-06-19] MEDS: CLOPIDOGREL 75 MG TAB PO SCH (08:34)
[2024-06-19] MEDS: CITALOPRAM HYDROBROMIDE 20 MG TAB PO SCH (08:34)
[2024-06-19] MEDS: FUROSEMIDE 40 MG TAB PO SCH (08:34)
[2024-06-19] MEDS: POTASSIUM CHLORIDE ER 20 MEQ TAB.ER PO SCH (08:34)
[2024-06-19] MEDS: DAPAGLIFLOZIN PROPANEDIOL 5 MG TABLET PO SCH (08:34)
[2024-06-19] MEDS: MULTIVITAMINS, THERA 1 EACH TAB PO SCH (08:34)
[2024-06-19 09:46] VITALS: BMI 30.1
[2024-07-17] MEDS ORDERED: ERGOCALCIFEROL 1,250 MCG (50,000 IU) CAPSULE PO SCH (09:00)
== END 2024-06-19 10:26 | disposition home or self-care (01) ==
LOC: CATHCVL 05:48 → 6NMEDSUR 12:49 → CATHCVL 06-19 10:26
PROVIDERS: ATTEND Internal Medicine Interventional Cardiology
DX: I73.9 Peripheral vascular disease, unspecified (principal); I25.10 Atherosclerotic heart disease of native coronary artery without angina pectoris; E11.9 Type 2 diabetes mellitus without complications; I10 Essential (primary) hypertension; E78.5 Hyperlipidemia, unspecified; Z79.82 Long term (current) use of aspirin; Z79.84 Long term (current) use of oral hypoglycemic drugs; Z79.02 Long term (current) use of antithrombotics/antiplatelets; Z95.5 Presence of coronary angioplasty implant and graft; Z87.891 Personal history of nicotine dependence
CPT/HCPCS: 94640; 92978; 93799; 92972; 75625; 75716; 82565; C9600; C1894; C1887 ×2; C1725 ×3; C1769 ×2; C1753; C1761; J2250; J1644 ×3; J2003; J3010; Q9967; J2305

== ENCOUNTER → 2024-07-03 | Outpatient (CLI) | payer MEDICARE ==
[2024-07-03 15:20] LABS: HCT 42.2 % (37.2-46.3); HGB 12.8 g/dL (12.0-15.0); MCH 27.5 pg (27.0-32.0); MCHC 30.3 g/dL (32.0-37.0); MCV 90.6 FL (80.0-97.0); Mean Platelet Volume 11.1 FL (9.5-12.2); NRBC Per 100 WBC 0 X 10*3/uL (0.00-0.01); Platelet Count 273 X 10*3/uL (140-440); RBC 4.66 X 10*6/uL (4.10-5.20); RDW 17.4 % (11.5-14.5); WBC 13.57 X 10*3/uL (4.50-10.00)
[2024-07-03 15:43] LABS: Blood Urea Nitrogen 18.9 mg/dL (9.0-27.0); Carbon Dioxide 25.3 mmol/L (21.6-31.8); Chloride 101 mmol/L (96-109); Potassium 4.3 mmol/L (3.5-5.5); Sodium 139 mmol/L (135-145)
== END | disposition home or self-care (01) ==
LOC: LABPAT 11:29
PROVIDERS: ATTEND Internal Medicine Interventional Cardiology
DX: Z01.812 Encounter for preprocedural laboratory examination (principal); I73.9 Peripheral vascular disease, unspecified
CPT/HCPCS: 80051; 82565; 84520; 85027

== ENCOUNTER 2024-07-09 08:42 | Day surgery (SDC) | payer MEDICARE ==
[2024-07-04 14:32] VITALS: BMI 29.9
[2024-07-09] MEDS: IV FLUID CONTINUATION 1,000 ML IV ONE (08:48)
[2024-07-09] MEDS: EMPTY BAG 1 BAG with SODIUM CHLORIDE 0.9% 1,000 ML IV ONE (09:08)
[2024-07-09 09:20] LABS: Glucose,Whole Blood 180 mg/dL (70-110)
[2024-07-09 09:28] LABS: Basophils # (A) 0.13 10*3/uL (0.00-0.10); Basophils % (A) 0.9 %; Eosinophils # (A) 1.39 10*3/uL (0.04-0.35); Eosinophils % (A) 9.2 %; HCT 40.3 % (37.2-46.3); HGB 12.7 g/dL (12.0-15.0); Lymphocytes # (A) 2.45 10*3/uL (0.90-5.00); Lymphocytes % (A) 16.2 %; MCH 27.5 pg (27.0-32.0); MCHC 31.5 g/dL (32.0-37.0); MCV 87.2 fL (80.0-97.0); Mean Platelet Volume 10.5 fL (9.5-12.2); Monocytes # (A) 1.32 10*3/uL (0.20-1.00); Monocytes % (A) 8.7 %; Neutrophils # (A) 9.73 10*3/uL (1.80-7.70); Platelet Count 272 10*3/uL (140-440); RBC 4.62 10*6/uL (4.10-5.20); WBC 15.17 10*3/uL (4.50-10.00)
[2024-07-09 09:46] LABS: African American GFR (CKD) 49 (>60 ml/min/1.73 sqM); Anion Gap 12 mmol/L; Blood Urea Nitrogen 25 mg/dL (7-17); Calcium 9.4 mg/dL (8.4-10.2); Carbon Dioxide 25 mmol/L (22-30); Chloride 98 mmol/L (98-107); Glucose 175 mg/dL (74-99); Non-African American GFR(CKD) 43 (>60 ml/min/1.73 sqM); Potassium 4.8 mmol/L (3.5-5.1); Sodium 135 mmol/L (137-145)
[2024-07-09] MEDS: MIDAZOLAM 2 MG/2 ML VIAL IVP ONE (12:17)
[2024-07-09] MEDS: fentaNYL (PF) 50 MCG/1 ML VIAL IVP ONE (12:26)
[2024-07-09] MEDS: LIDOCAINE 1% INJ 10MG/ML (30 ML VIAL-PF) SQ ONE (12:26)
[2024-07-09] MEDS: HEPARIN SODIUM 1,000 UN/ML (10ML VL) IVP ONE (12:35)
[2024-07-09] MEDS: NITROGLYCERIN 1000MCG/10ML SYRINGE INTRAARTER ONE (13:12)
[2024-07-09] MEDS: niCARdipine Syringe (1,000 mcg/10 mL) INTRAARTER ONE (13:12)
[2024-07-09] MEDS: IOPAMIDOL-300 100ML BTL INJ ONE (13:14)
[2024-07-09] MEDS ORDERED: NITROGLYCERIN SL TABS 0.4 MG TAB SUBLINGUAL PRN (13:21)
[2024-07-09] MEDS ORDERED: NALOXONE 0.4 MG/ML 1 ML VIAL IVP PRN (13:22)
--- NOTE | 2024-07-09 13:27 | P.PCN ---
Date of Procedure: 07/09/24 Operative Findings: PERCUTANEOUS PERIPHERAL INTERVENTION Performing physician Av Sotomayor M.D. Procedure performed 1. Successful angioplasty and stenting of the right SFA 2. Adjunctive use of IVUS and atherectomy 3. Right lower extremity angiogram and left common femoral artery angiogram 4. Ultrasound-guided access of the left common femoral artery Indication Symptomatic 78-year-old female patient with critical right SFA disease Approach Left common femoral artery Complications None Level of sedation Moderate with a sedation time of 54 minutes Procedure description After obtaining informed consent the patient was brought to the cardiac Nurse Chemical Dependency with the left common femoral artery was cannulated using micropuncture technique under ultrasound guidance a micropuncture wire passed easily then I placed a 6 Ukrainian 70 cm sheath at the left common femoral artery. Subsequently I advanced an 035 stiff Glidewire and rim catheter to the aorta and then I advanced a wire to the right SFA then the sheath was advanced over the wire and the catheter to the right common femoral artery right lower extremity angiogram was performed. Subsequently I did wire the SFA using a 1 4 wire. Please note that anticoagulation was initiated using heparin with continuous ACT monitoring. Subsequently I did IVUS of the right SFA which showed heavily calcified vessel around 5 mm in diameter. I did atherectomy using the CSI device before I did balloon angioplasty using 5 mm balloon and subsequently stented the distal right SFA. Post dilatation of the stent was performed using 5 mm balloon. I deployed in the distal right SFA 6.0 x 100 mm Zilver PTX drug-coated stent. Final angiogram showed good angiographic results with residual disease involving the proximal SFA I was treated medically at this point. Subsequently we exchanged my long sheath into short sheath using 035 stiff Glidewire before I did selective left common femoral artery angiogram and the procedure was completed with no complication Postprocedure management 1. Dual antiplatelet therapy 2. Aggressive cholesterol control 3. Risk factors modification 4. Follow-up with the patient
[2024-07-09] MEDS: SODIUM CHLORIDE 0.9% 1,000 ML in EMPTY BAG 1 BAG IV SCH (13:30)
--- NOTE | 2024-07-09 14:10 | IR ---
EXAMINATION TYPE: IR stent intravas non coronary DATE OF EXAM: 07/09/2024 FLUOROSCOPY 235 images are submitted. Total DAP: 11.5 Gycm2 Total fluoroscopy time: 11.8 minutes [facility], Workstation: [id number], 07/09/2024 2:08 PM
[2024-07-09 19:55] LABS: Glucose,Whole Blood 205 mg/dL (70-110)
[2024-07-09] MEDS: TICAGRELOR 90 MG TAB PO SCH (20:29)
[2024-07-09] MEDS: ATORVASTATIN 40 MG TAB PO SCH (20:29)
[2024-07-09] MEDS: GABAPENTIN 300 MG CAP PO SCH (20:29)
[2024-07-09] MEDS: METOPROLOL TARTRATE 25 MG TAB PO SCH (20:29)
[2024-07-09] MEDS: SYMBICORT 160-4.5 MCG INHALER INHALATION SCH (20:40)
[2024-07-10 05:57] LABS: Glucose,Whole Blood 179 mg/dL (70-110)
[2024-07-10 07:43] LABS: African American GFR (CKD) 44 (>60 ml/min/1.73 sqM); Non-African American GFR(CKD) 38 (>60 ml/min/1.73 sqM)
[2024-07-10] MEDS: FUROSEMIDE 40 MG TAB PO SCH (09:17)
[2024-07-10] MEDS: CITALOPRAM HYDROBROMIDE 20 MG TAB PO SCH (09:17)
[2024-07-10] MEDS: MULTIVITAMINS, THERA 1 EACH TAB PO SCH (09:17)
[2024-07-10] MEDS: POTASSIUM CHLORIDE ER 20 MEQ TAB.ER PO SCH (09:17)
[2024-07-10] MEDS: ASPIRIN 81 MG PO SCH (09:17)
[2024-07-10] MEDS: DAPAGLIFLOZIN PROPANEDIOL 5 MG TABLET PO SCH (09:18)
[2024-07-10 10:57] VITALS: RESP 16; TEMP 97.7
[2024-07-10 11:19] LABS: Glucose,Whole Blood 234 mg/dL (70-110)
--- NOTE | 2024-07-10 12:26 | US ---
EXAMINATION TYPE: US lower ext pseudo artery LT DATE OF EXAM: 07/10/2024 COMPARISON: NONE CLINICAL INDICATION: Female, 78 years old with history of post procedure pain; TECHNIQUE: Grayscale, color Doppler and spectral Doppler imaging performed of the groin, post cardiac catheter to assess for pseudoaneurysm. FINDINGS: Compliance Manager notes: Exam done portable SIDE PERFORMED: Left Color and Waveform Doppler performed to assess for the presence of pseudoaneurysm; Is there ultrasound evidence of a pseudoaneurysm: no Is there evidence of AV shunting: no Is there a fluid collection present: no IMPRESSION: No sonographic evidence for left groin pseudoaneurysm or any sizable hematoma. [facility], , 07/10/2024 12:24 PM
[2024-07-10 13:00] VITALS: BP 141/69; PULSE 66
[2024-07-20] MEDS ORDERED: ERGOCALCIFEROL 1,250 MCG (50,000 IU) CAPSULE PO SCH (09:00)
== END 2024-07-10 13:55 | disposition home health service (06) ==
LOC: CATHCVL 08:42 → 3SCARD 17:05 → CATHCVL 07-10 13:55
PROVIDERS: ATTEND Internal Medicine Interventional Cardiology
DX: I73.9 Peripheral vascular disease, unspecified (principal); I25.10 Atherosclerotic heart disease of native coronary artery without angina pectoris; I10 Essential (primary) hypertension; E78.2 Mixed hyperlipidemia; E11.9 Type 2 diabetes mellitus without complications; Z72.0 Tobacco use; Z79.82 Long term (current) use of aspirin; Z79.02 Long term (current) use of antithrombotics/antiplatelets; Z79.84 Long term (current) use of oral hypoglycemic drugs; Z79.899 Other long term (current) drug therapy
CPT/HCPCS: 94640 ×2; 37227; 76937; 37252; 80048; 82565; 85025; 93975; 93926; 99152; 99153; C1894 ×2; C1769 ×4; C1714; C1753; C1874; C1725; C2623; J2250; J2003; J1644; Q9967; J3010; J2305

== ENCOUNTER → 2024-08-12 | Outpatient (CLI) | payer MEDICARE ==
[2024-08-12 19:38] LABS: Albumin 4.4 g/dL (3.8-4.9); BUN/Creat Ratio 17.08 Ratio (12.00-20.00); Blood Urea Nitrogen 20.5 mg/dL (9.0-27.0); Calcium 9.1 mg/dL (8.7-10.3); Carbon Dioxide 26.1 mmol/L (21.6-31.8); Chloride 99 mmol/L (96-109); Glucose 146 mg/dL (70-110); Phosphorus 3.3 mg/dL (2.4-5.1); Potassium 4.3 mmol/L (3.5-5.5); Sodium 139 mmol/L (135-145)
== END | disposition home or self-care (01) ==
LOC: LABWHC1 12:29
PROVIDERS: ATTEND Internal Medicine
DX: N17.9 Acute kidney failure, unspecified (principal)
CPT/HCPCS: 36415; 80069; 83970